=== PATIENT | female | born 1955 | race Hispanic/Latino ===

== ENCOUNTER 2022-06-19 11:38 | Inpatient (IN) | payer MEDICAID, SELFPAY ==
[2022-06-19] VITALS (21 sets, daily range): BP systolic 98–125; BP diastolic 41–78; PULSE 55–68; RESP 10–24; TEMP 36.1–36.2; O2SAT 94–99; BMI 25.8
--- NOTE | ~2022-06-19 | US_ITS ---
US abdomen limited INDICATION: Abdomen pain. Nausea and vomiting. Elevated liver function tests. PROCEDURE: Realtime right upper abdominal ultrasound. COMPARISON: No prior studies for comparison. FINDINGS: The pancreas is normal without focal mass or pancreatic ductal dilation. Liver echotexture is increased and heterogeneous. There is a nodular liver surface, compatible with cirrhosis. No flow identified in the portal vein, consistent with thrombosis. There is a 13 mm echogenic foci in the ga llbladder lumen without shadowing. Gallbladder wall is mildly thickened. Common duct is normal measur ing 4 mm. Small amount of ascites. IMPRESSION: 1: Cirrhosis of the liver with portal vein thrombosis. 2: Echogenic focus measuring 13 mm in the gallbladder which may represent a gallbladder polyp or slud ge. 3: Gallbladder wall thickening. This could indicate interstitial edema, chronic liver disease or conveyor belt installer rachel cholecystitis. 4: Small amount of ascites. Reviewed, dictated and finalized at location A. IMPRESSION: 1: Cirrhosis of the liver with portal vein thrombosis. 2: Echogenic focus measuring 13 mm in the gallbladder which may represent a gal lbladder polyp or sludge. 3: Gallbladder wall thickening. This could indicate interstitial edema, chronic liver disease or chronic cholecystitis. 4: Small amount of ascites.
--- NOTE | ~2022-06-19 | CT_ITS ---
EXAMINATION: CTA abdomen DATE: 06/19/2022 19:12 INDICATION: Portal vein thrombosis TECHNIQUE: Computed tomography (CT) of the abdomen was performed with 100 cc Omnipaque 300 intravenou s contrast. The dose-length product was 355.03 mGy-cm. Automated exposure control and iterative recon struction technique were employed. COMPARISON: Ultrasound dated 06/19/2022 FINDINGS: There is cirrhosis of the liver. Small amount of ascites. There is dependent atelectasis. T he aorta is normal caliber. The celiac axis, SMA, renal arteries and IGNACIO are widely patent. No eviden ce for aneurysm or dissection. No identifiable flow is seen in the portal vein, consistent with von l vein thrombosis. No free air. Nonobstructive bowel pattern. The spleen, pancreas, adrenal glands an d kidneys are unremarkable. No lymphadenopathy. No free air. Small amount of free fluid in the pelvis . There is grade 2 spondylolisthesis at L5-S1 secondary to bilateral spondylolysis. There is moderate disc narrowing at L5-S1. IMPRESSION: 1. Cirrhosis of the liver with portal vein thrombosis. 2: Small amount of ascites. Reviewed, dictated and finalized at location A.
--- NOTE | ~2022-06-19 | CT_ITS ---
EXAMINATION: CT brain wo con DATE: 06/19/2022 12:49 INDICATION: Dizziness TECHNIQUE: Computed tomography (CT) of the head was performed without intravenous contrast. The dose- length product was 529.67 mGy-cm. Automated exposure control and iterative reconstruction technique w ere employed. COMPARISON: None FINDINGS: Mild generalized atrophy. No acute infarction, hemorrhage, mass or mass effect. There is in tracranial atherosclerosis. Normal garcia-white differentiation. No ventriculomegaly or midline shift. Basilar cisterns are patent. Paranasal sinuses and mastoids are pneumatized. IMPRESSION: 1. No acute intracranial abnormality. 2: Age-related findings. Reviewed, dictated and finalized at location A.
--- NOTE | 2022-06-19 12:29 | ECG_ITS ---
Measurements Intervals [place] Rate: 59 P: -15 [place]: 164 QRS: 34 QRSD: 104 T: -12 QT: 375 QTc: 372 Interpretive Statements SINUS BRADYCARDIA BORDERLINE ST-T WAVE ABNORMALITY- ANT/INF LEADS BASELINE ARTIFACT- I, II, III, AVR, AVF, V6 BORDERLINE ECG Electronically Signed On 06-19-2022 16:17:31 CDT by Jani Machado D.O.
[2022-06-19 12:47] LABS: Basophils Absolute Auto 0.1 K/mm3 (0.0-0.1); Basophils Percent Auto 0.9 % (0.2-1.2); Eosinophils Percent Auto 0.1 % (0-4.4); Hematocrit 44.3 % (37.0-47.0); Hemoglobin 14.9 g/dL (12.0-15.0); Immature Granulocyte Absolute 0.01 K/mm3 (0.00-0.031); Immature Granulocyte Percent A 0.1 % (0-0.5); Immature Platelet Fraction Pct 18.8 % (0.9-11.2); Lymphocytes Percent Auto 14.8 % (18.3-44.2); Mean Corpuscular HGB Conc 33.6 g/dl (32-36); Mean Corpuscular Hemoglobin 30.7 pg (26-34); Mean Corpuscular Volume 91.3 fl (80-100); Mean Platelet Volume 13.8 fl (7.4-10.4); Monocytes Absolute Auto 0.6 K/mm3 (0.1-0.6); Monocytes Percent Auto 7.5 % (2.6-8.5); Neutrophils Absolute Auto 6.2 K/mm3 (1.3-6.7); Neutrophils Percent Auto 76.6 % (45.5-73.1); Platelet Count Result 110 k/mm3 (150-375); Red Blood Count 4.85 M/mm3 (4.2-5.4); Red Cell Distribution Width 13.5 % (11.5-14.5); White Blood Count 8.1 K/mm3 (4.5-10.0)
[2022-06-19] MEDS: SODIUM CHLORIDE 0.9% IV 1,000 ML 999 ML IV CONT (13:17)
[2022-06-19] MEDS: ONDANSETRON INJ 4 MG/2 ML VIAL IV PUSH (13:17)
[2022-06-19] MEDS: MECLIZINE HCL 25 MG TABLET PO (13:17)
--- NOTE | 2022-06-19 13:53 | ED.GENADULT ---
HPI - General Adult General Chief complaint: Nausea/Vomiting/Diarrhea <LEEROY Petty Last Filed: 06/19/22 18:33> Stated complaint: N/V and headache x 1 day <LEEROY Petty Last Filed: 06/19/22 18:33> Time Seen by Provider: 06/19/22 11:53 <LEEROY Petty Last Filed: 06/19/22 18:33> Source: patient and family <LEEROY Petty Last Filed: 06/19/22 18:33> Mode of arrival: ambulatory <LEEROY Petty Last Filed: 06/19/22 18:33> Limitations: language barrier <LEEROY Petty Last Filed: 06/19/22 18:33> History of Present Illness HPI narrative: Patient is a 58-year-old female who presents to the ED with report of dizziness. Patient is primarily speaking. Daughter describes review assistant at bedside assisted in providing information. Patient reports she just flew here from [place] a few days ago. Today, she reports having dizziness, described as a the room is spinning. She states she has had dizziness like this in the past and is prescribed a medication in [place] named Cinarizina. Her dizziness has never been this severe however. She also reports having a headache, occasional double vision, and nausea and vomiting due to the dizziness. Denies any abdominal pain, chest pain, difficulty breathing, cough, cold symptoms, fever, chills, ear pain, tinnitus, focal weakness. <LEEROY Petty Last Filed: 06/19/22 18:33> Related Data Allergies/adverse reactions: Allergies Allergy/AdvReac Type Severity Reaction Status Date / Time Penicillins Allergy Unknown Verified 06/19/22 16:17 <LEEROY Petty Last Filed: 06/19/22 18:33> Review of Systems Review of Systems: CONSTITUTIONAL: Denies fever, chills, or sweats. EYES: Reports double vision. ENT: Denies rhinorrhea, congestion, tinnitus, otalgia. CARDIOVASCULAR: Denies chest pain. RESPIRATORY: Denies cough or dyspnea. GASTROINTESTINAL: Reports nausea, vomiting. Denies abdominal pain. NEUROLOGIC: Reports dizziness, headache. Denies numbness, tingling, or focal weakness. <Mica Goodman PA-C - Last Filed: 06/19/22 18:33> All systems reviewed & are unremarkable except as noted in HPI and below <Mica Goodman PA-C - Last Filed: 06/19/22 18:33> PMFSH Past Medical History Medical History: Medical History Diabetes mellitus Hypertension Vertigo <Mica Goodman PA-C - Last Filed: 06/19/22 18:33> Surgical History Surgical History: Surgical History (Updated 06/19/22 @ 13:54 by Mica Goodman PA-C) No pertinent past surgical history <Mica Goodman PA-C - Last Filed: 06/19/22 18:33> Social History Social History: Social History (Updated 06/19/22 @ 13:54 by Mica Goodman PA-C) Smoking status: Never smoker <Mica Goodman PA-C - Last Filed: 06/19/22 18:33> Exam Narrative: GENERAL: Well appearing, well-nourished, non-toxic, in no acute distress. HEAD: Normocephalic, atraumatic. EYES: PERRL/EOMI, conjunctivae clear bilaterally. No nystagmus. Pterygium noted to right eye. EARS: Diffuse cerumen, unable to visualize TMs bilaterally. NECK: Supple. No adenopathy, no masses. RESPIRATORY: Airway patent, respirations nonlabored. Clear to auscultation bilaterally, no rales, rhonchi, wheezing. CARDIOVASCULAR: Regular rate and rhythm without murmurs, rubs, or gallops. Peripheral pulses 2+ and equal bilaterally. ABDOMINAL: Soft, no appreciable tenderness to palpation. Nondistended, no hepatosplenomegaly. Normoactive BS. MUSCULOSKELETAL: Moves all extremities. Strength/ROM intact without gross deformities. SKIN: Warm, dry, normal color. No rashes. NEURO: A&O X3. Speech clear. Difficulty following some commands due to language barrier. No focal deficits. CN II-XII intact. Sensation grossly intact. No ataxic movements. Strength 5/5 in upper and lower extremities bilaterally. [id number] intact bilaterally. No prona
[2022-06-19 14:07] LABS: Appearance Urine Slightly Cloudy (Clear); Bilirubin Urine Negative (Negative); Glucose Urine UA Negative (Negative); Ketones Urine Trace mg/dL (Negative); Leukocyte Esterase Ur 1+ LEU/UL (Negative); Nitrate Urine Positive (Negative); Protein Urine Negative (Negative)
[2022-06-19 14:11] LABS: Bacteria Urine Trace /hpf; Mucus Urine Rare /lpf; RBC Urine 0-2 /hpf (0-2); Squamous Epithelial Cell Urine Rare /hpf (Few)
[2022-06-19 14:20] LABS: Add Urine Microscopic? YES; Blood Urine Trace-Intact (Negative); Color Urine Dark Yellow (Yellow)
[2022-06-19 14:33] LABS: Troponin I < 0.012 ng/mL (0.000-0.034)
[2022-06-19 14:52] LABS: SARS-CoV-2 RNA PCR Negative
[2022-06-19 17:14] LABS: Alanine Aminotransferase 53 U/L (6-35); Albumin Level 3.9 g/dL (3.5-5.1); Alkaline Phosphatase 175 U/L (38-126); Anion Gap 13 mmol/L (8-16); Aspartate Amino Transferase 101 U/L (14-36); Bilirubin,Total 1.8 mg/dL (0.2-1.3); Blood Urea Nitrogen 11 mg/dL (7-17); Calcium 8.8 mg/dL (8.4-10.2); Carbon Dioxide 27 mmol/L (22-30); Chloride 100 mmol/L (98-107); Estimated Glomerular Filt Rate > 60; Glucose 122 mg/dL (65-110); Lipase 61 U/L (23-300); Potassium 2.5 mmol/L (3.4-5.0); Sodium 140 mmol/L (137-145)
[2022-06-19 17:23] LABS: Magnesium 1.9 mg/dL (1.6-2.3)
[2022-06-19] MEDS: SODIUM CHLORIDE 0.9% IV 1,000 ML 30 ML IV CONT (17:33)
[2022-06-19] MEDS: POTASSIUM CHLORIDE INJ 40 MEQ in SODIUM CHLORIDE 0.9% IV 500 ML 130 MEQ IVPB (17:33)
--- NOTE | 2022-06-19 17:33 | PC.NURSE ---
Per verbal order readback by ERP start IVFs at 30ml/hr concurrent with KCL.
[2022-06-19 19:54] LABS: Hepatitis B Surface Antigen Negative (Negative)
[2022-06-19 20:00] LABS: HAV RESULT Negative (Negative); Hepatitis B Core IgM Result Negative (Negative)
--- NOTE | 2022-06-19 20:02 | PM.IMHP ---
H&P: HPI History of Present Illness Date/Time: 06/19/22 20:02 Chief Complaint: dizziness Narrative: This is a 66-year-old female with past medical history significant for hepatic cirrhosis, vertigo, hypertension, recent travel by airplane from [place]. patient presents to the emergency room due to vertigo for the last 3 days or so, DENIES ANY HEADACHES, VISION CHANGES, FOCAL SENSORIMOTOR DEFICIT, NO NAUSEA, NO VOMITING, HAS SENSATION OF ROOM SPINNING AROUND HER WITH MOVEMENTS OF THE HEAD, DENIES ANY FEVERS, RIGORS, CHILLS, ABDOMINAL PAIN, DIARRHEA, SYNCOPE OR NEAR SYNCOPE. PRELIMINARY WORKUP ABOVE SIGNIFICANT FOR URINE WAS POSITIVE FOR NITRITE AND HAD 10-15 WBC'S IS PRESENT A CT OF ABDOMEN AND PELVIS WAS SIGNIFICANT FOR Cirrhosis of the liver with portal vein thrombosis, small amount of ascites. a CT of the head showed no acute intracranial abnormality. patient is being admitted for further evaluation management and treatment. Review of Systems Review of Systems: Vertigo Constitutional: Constitutional: Denies chills, Denies fatigue, Denies fever(s), Denies malaise, Denies night sweats, Denies poor appetite and Denies weakness Eyes: Eyes: Denies change in vision ENT: Denies dysphagia, Reports vertigo, Denies nasal congestion, Denies nasal discharge, Denies nasal obstruction, Denies nasal trauma, Denies neck pain, Denies odynophagia, Denies tinnitus and Denies sore throat Cardiovascular: Cardiovascular: Denies chest pain, Denies syncope, Denies pedal edema, Denies edema, Denies irregular heart rhythm, Denies claudication, Denies lightheadedness, Denies radiating jaw, neck or arm pain, Denies palpitations, Denies dyspnea on exertion and Denies paroxysmal nocturnal dyspnea Respiratory: Respiratory: Denies chest congestion, Denies excessive phlegm production, Denies pain on inspiration and Denies dyspnea Gastrointestinal: Gastrointestinal: Reports abdominal pain, Denies melena, Denies bloating, Denies coffee ground emesis, Denies dyspepsia, Denies heartburn, Denies diarrhea, Denies nausea and Denies vomiting Genitourinary: Genitourinary: Denies dysuria Musculoskeletal: Musculoskeletal: Denies myalgias, Denies arthralgias, Denies joint swelling, Denies limited range of motion, Denies muscle weakness, Denies neck pain and Denies numbness Integumentary/Breasts: Skin/Breast: Denies rash Neurologic: Reports vertigo, Denies syncope, Denies focal weakness, Denies loss of vision and Denies Sensory deficit (Neuro) Psychiatric: Psychiatric: Reports no additional psychiatric complaints and Reports as per HPI Endocrine: Endocrine: Reports no additional endocrine complaints and Reports as per HPI Hematologic/Lymphatic: Hematologic/Lymphatic: Reports no additional hematologic/lymphatic complaints and Reports as per HPI Allergic/Immunologic: Allergic/Immunologic: Reports no additional allergic/immunologic complaints and Reports as per HPI [facility] Past Medical History Medical History Diabetes mellitus Hypertension Vertigo Surgical History Surgical History (Updated 06/19/22 @ 13:54 by Mica Goodman PA-C) No pertinent past surgical history Family History Family History (Updated 06/19/22 @ 21:21 by Mehnaz Langley RN) Mother Asthma Social History Social History (Updated 06/19/22 @ 13:54 by Mica Goodman PA-C) Smoking status: Never smoker Alcohol intake: never Substance use: never Spiritual care concerns: No Meds Home Medications and Allergies Home Medications Medication Instructions Recorded Confirmed Type chlorthalidone 50 mg tablet 50 mg PO DAILY 06/19/22 06/19/22 History glyburide micronized 3 mg tablet 3 mg PO BID 06/19/22 06/19/22 History (Glynase) metoprolol succinate 50 mg 50 mg PO BID 06/19/22 06/19/22 History tablet,extended release 24 hr Allergies Allergy/AdvReac Type Severity Reaction Status Date / Time Penicillins Aller
[2022-06-19 20:11] LABS: Hepatitis C Virus Antibody Negative (Negative)
[2022-06-19 20:29] LABS: INR 1.3; Partial Thromboplastin Time 31.3 SECONDS (22.3-36.8); Prothrombin Time 15.9 Seconds (11.1-14.7)
--- NOTE | 2022-06-19 21:19 | ADMGEN ---
This patient, Eboni Bolden, was admitted to 2 Medical Room 242-01. Patient/family oriented to hospital policies and general routines including ID bracelet, bed and alarms, visiting hours, pain management, procedures, bathroom and other care routines, personal items, smoking policy, room service/diet, and visiting hours. Information on how to activate the Rapid Response Team has been discussed. Patient/Family are encouraged to report perceived risks to care and to ask questions if they do not understand what they are told or what they should do.
[2022-06-20 03:37] VITALS: BP 101/47; PULSE 61; RESP 18; TEMP 36.2; O2SAT 98
[2022-06-20 06:57] LABS: Hematocrit 44.7 % (37.0-47.0); Hemoglobin 14.7 g/dL (12.0-15.0); Immature Platelet Fraction Pct 15.8 % (0.9-11.2); Mean Corpuscular HGB Conc 32.9 g/dl (32-36); Mean Corpuscular Hemoglobin 30.8 pg (26-34); Mean Corpuscular Volume 93.7 fl (80-100); Mean Platelet Volume 12.8 fl (7.4-10.4); Platelet Count Result 92 k/mm3 (150-375); Red Blood Count 4.77 M/mm3 (4.2-5.4); Red Cell Distribution Width 13.4 % (11.5-14.5); White Blood Count 6.5 K/mm3 (4.5-10.0)
[2022-06-20 07:20] LABS: Alanine Aminotransferase 49 U/L (6-35); Albumin Level 3.4 g/dL (3.5-5.1); Alkaline Phosphatase 144 U/L (38-126); Anion Gap 8 mmol/L (8-16); Aspartate Amino Transferase 99 U/L (14-36); Bilirubin,Total 1.7 mg/dL (0.2-1.3); Blood Urea Nitrogen 10 mg/dL (7-17); Carbon Dioxide 32 mmol/L (22-30); Chloride 101 mmol/L (98-107); Estimated CRCL calculation 54 ml/min; Estimated Glomerular Filt Rate > 60; Glucose 85 mg/dL (65-110); Potassium 2.7 mmol/L (3.4-5.0); Sodium 141 mmol/L (137-145)
[2022-06-20 07:46] LABS: Glucose Point of Care 94 mg/dl (65-105)
[2022-06-20] MEDS: POTASSIUM CHLORIDE INJ 40 MEQ in SODIUM CHLORIDE 0.9% IV 500 ML 130 MEQ IVPB (08:32)
[2022-06-20 08:34] VITALS: PULSE 67
[2022-06-20] MEDS: METOPROLOL SUCCINATE EXT REL 50 MG TABCR PO (08:34)
[2022-06-20] MEDS: POTASSIUM CHLORIDE 20 MEQ PACKET (FOR LIQUID) 40 MEQ PO (08:35)
[2022-06-20] MEDS: hydroCHLOROthiazide 25 MG TABLET PO (08:35)
[2022-06-20 08:47] VITALS: BP 115/52
[2022-06-20 11:34] LABS: Glucose Point of Care 154 mg/dl (65-105)
--- NOTE | 2022-06-20 11:54 | PM.IMPN ---
Progress Note: A&P Assessment and Plan (1) Hypokalemia: Code(s): E87.6 - Hypokalemia Status: Acute (2) Elevated LFTs: Code(s): R79.89 - Other specified abnormal findings of blood chemistry Status: Acute (3) Urinary tract infection: Qualifiers: Hematuria presence: without hematuria Urinary tract infection type: acute cystitis Qualified Code(s): N30.00 - Acute cystitis without hematuria Code(s): N39.0 - Urinary tract infection, site not specified Status: Acute (4) Hypertension: Code(s): I10 - Essential (primary) hypertension Status: Acute (5) Vertigo: Code(s): R42 - Dizziness and giddiness Status: Acute (6) Diabetes mellitus: Code(s): E11.9 - Type 2 diabetes mellitus without complications Status: Acute Plan Nausea vomiting headache dizziness improving History of vertigo Mild thrombocytopenia no baseline available. Due to chronic liver disease. Urinary tract infection continue ceftriaxone follow urine culture Portal vein thrombosis related to cirrhosis of liver. H&H is stable no history of bleeding will cover with heparin GTT due to unknown bleeding history and/or varices status. Will check AFP. Hepatitis panel is negative. No history of alcohol use. Venous thrombosis panel will be ordered. Will consult GI for further recommendations. Discussed with GI. Will plan for EGD for variceal status. Due to bleeding risks will start with heparin GTT rather than longer acting anticoagulation. Discussed with Radiology and noted complete occlusion of portal vein. Unable to determine whether acute or chronic but does not seem she is much symptomatic with this. Hypokalemia severe replace as needed. Magnesium is normal. DVT prophylaxis heparin GTT Code status full code Subjective Date/time seen: 06/20/22 11:54 Interval history: Patient presented with nausea vomiting dizziness. Petroleum Engineering Professor is her grandson who was at bedside. She came from [place] few days ago. Denies any abdominal pain. Not having any diarrhea. Did have nausea and vomiting please out. No fever chills shortness of breath chest pain. She was noted to have severe hypo kalemia which is getting was placed. Routine lab work showed findings of cirrhosis with portal vein thrombosis. There was also possible gallbladder polyp versus sludge versus chronic cholecystitis. She has underlying diabetes. No history of alcohol use. She has been diagnosed with some liver problem in [place] Review of Systems Review of Systems: All systems reviewed & are unremarkable except as noted in HPI and below Exam Narrative: GENERAL: The patient is well developed, not in acute distress HEENT: Nonicteric sclerae, PERRLA, EOMI. Oropharynx clear. Moist mucous membranes. Conjunctivae appear well perfused. CHEST: Chest wall is nontender. HEART: Regular rate and rhythm without murmur, rubs, or gallops LUNGS: Clear to auscultation bilaterally. no respiratory distress ABDOMEN: Soft, positive bowel sounds, non-tender, no organomegaly. SKIN: No rash, no excessive bruising, petechiae, or purpura. NEUROLOGIC: Cranial nerves II-XII intact, alert and oriented x 3, no gross motor deficits EXTREMITIES: no edema, cyanosis or clubbing Objective Data Vital Signs Vital Signs: Vital Signs - 24 hr 06/19/22 12:36 06/19/22 17:03 06/19/22 17:28 Temperature Pulse Rate 62 62 57 L Respiratory Rate 12 14 10 L Blood Pressure 115/56 L 104/43 L Pulse Oximetry 96 95 95 Oxygen Delivery 06/19/22 17:30 06/19/22 17:31 06/19/22 17:45 Temperature Pulse Rate 63 60 62 Respiratory Rate 13 13 14 Blood Pressure 112/52 L Pulse Oximetry 96 95 94 Oxygen Delivery 06/19/22 18:29 06/19/22 18:30 06/19/22 18:45 Temperature Pulse Rate 59 L 59 L 57 L Respiratory Rate 24 H 15 17 Blood Pressure Pulse Oximetry 94 96 97 Oxygen Delivery 06/19/22 19:17 06/19/22 19:26 06/19/22 19:30 Temperature
[2022-06-20 14:20] VITALS: BP 109/67; PULSE 63; RESP 18; TEMP 36.8; O2SAT 97
[2022-06-20] MEDS: HEPARIN SOD/D5W 100 UNITS/ML 25,000 UNITS/250 ML BAG 9 UNITS IV CONT (14:52)
[2022-06-20 16:37] LABS: Glucose Point of Care 142 mg/dl (65-105)
[2022-06-20 18:33] LABS: Basophils Absolute Auto 0.1 K/mm3 (0.0-0.1); Basophils Percent Auto 1.1 % (0.2-1.2); Eosinophils Absolute Auto 0.1 K/mm3 (0-0.3); Eosinophils Percent Auto 1.7 % (0-4.4); Hematocrit 41.6 % (37.0-47.0); Hemoglobin 13.5 g/dL (12.0-15.0); Immature Granulocyte Absolute 0.01 K/mm3 (0.00-0.031); Immature Granulocyte Percent A 0.2 % (0-0.5); Immature Platelet Fraction Pct 16.7 % (0.9-11.2); Lymphocytes Absolute Auto 1.79 K/mm3 (0.9-3.2); Lymphocytes Percent Auto 27.7 % (18.3-44.2); Mean Corpuscular HGB Conc 32.5 g/dl (32-36); Mean Corpuscular Hemoglobin 30.4 pg (26-34); Mean Corpuscular Volume 93.7 fl (80-100); Mean Platelet Volume 13.2 fl (7.4-10.4); Monocytes Absolute Auto 0.4 K/mm3 (0.1-0.6); Monocytes Percent Auto 6.8 % (2.6-8.5); Neutrophils Percent Auto 62.5 % (45.5-73.1); Platelet Count Result 102 k/mm3 (150-375); Red Blood Count 4.44 M/mm3 (4.2-5.4); Red Cell Distribution Width 13.4 % (11.5-14.5); White Blood Count 6.5 K/mm3 (4.5-10.0)
[2022-06-20 18:37] LABS: Potassium 3.3 mmol/L (3.4-5.0)
[2022-06-20 18:47] LABS: INR 1.3; Prothrombin Time 15.9 Seconds (11.1-14.7)
[2022-06-20 18:48] LABS: Partial Thromboplastin Time 77.1 SECONDS (22.3-36.8)
[2022-06-20 19:38] VITALS: BP 109/50; PULSE 60; RESP 16; TEMP 36.6; O2SAT 95
[2022-06-20 21:38] LABS: Glucose Point of Care 220 mg/dl (65-105)
[2022-06-21 01:48] LABS: Partial Thromboplastin Time 157.8 SECONDS (22.3-36.8)
[2022-06-21 06:37] VITALS: BP 111/50; PULSE 62; RESP 16; TEMP 36.8; O2SAT 97
[2022-06-21 07:40] LABS: Glucose Point of Care 120 mg/dl (65-105)
[2022-06-21 07:57] LABS: Basophils Absolute Auto 0.1 K/mm3 (0.0-0.1); Basophils Percent Auto 1.2 % (0.2-1.2); Eosinophils Absolute Auto 0.2 K/mm3 (0-0.3); Eosinophils Percent Auto 2.6 % (0-4.4); Hematocrit 43.5 % (37.0-47.0); Hemoglobin 14.5 g/dL (12.0-15.0); Immature Granulocyte Absolute 0.01 K/mm3 (0.00-0.031); Immature Granulocyte Percent A 0.2 % (0-0.5); Immature Platelet Fraction Pct 16.2 % (0.9-11.2); Lymphocytes Absolute Auto 2.06 K/mm3 (0.9-3.2); Lymphocytes Percent Auto 35.2 % (18.3-44.2); Mean Corpuscular HGB Conc 33.3 g/dl (32-36); Mean Corpuscular Hemoglobin 31.3 pg (26-34); Mean Platelet Volume 13.5 fl (7.4-10.4); Monocytes Absolute Auto 0.5 K/mm3 (0.1-0.6); Monocytes Percent Auto 7.7 % (2.6-8.5); Neutrophils Absolute Auto 3.1 K/mm3 (1.3-6.7); Neutrophils Percent Auto 53.1 % (45.5-73.1); Platelet Count Result 84 k/mm3 (150-375); Red Blood Count 4.63 M/mm3 (4.2-5.4); Red Cell Distribution Width 13.2 % (11.5-14.5); White Blood Count 5.9 K/mm3 (4.5-10.0)
[2022-06-21 07:58] LABS: Alanine Aminotransferase 54 U/L (6-35); Albumin Level 3.4 g/dL (3.5-5.1); Alkaline Phosphatase 183 U/L (38-126); Anion Gap 6 mmol/L (8-16); Aspartate Amino Transferase 111 U/L (14-36); Bilirubin,Total 1.7 mg/dL (0.2-1.3); Blood Urea Nitrogen 10 mg/dL (7-17); Calcium 8.9 mg/dL (8.4-10.2); Carbon Dioxide 32 mmol/L (22-30); Chloride 99 mmol/L (98-107); Estimated CRCL calculation 54 ml/min; Estimated Glomerular Filt Rate > 60; Glucose 118 mg/dL (65-110); Magnesium 1.8 mg/dL (1.6-2.3); Sodium 137 mmol/L (137-145)
[2022-06-21 08:08] LABS: Partial Thromboplastin Time 106.8 SECONDS (22.3-36.8)
[2022-06-21 08:23] VITALS: PULSE 56
[2022-06-21] MEDS: METOPROLOL SUCCINATE EXT REL 50 MG TABCR PO (08:23)
[2022-06-21] MEDS: POTASSIUM CHLORIDE 20 MEQ TABLET 40 MEQ PO (10:30)
--- NOTE | 2022-06-21 11:42 | WPDGICN ---
Assessment and Plan Assessment and plan (1) Cirrhosis: Code(s): K74.60 - Unspecified cirrhosis of liver Status: Acute Assessment and Plan: new diagnosis of cirrhosis with PVT but she is compensated otherwise ? etiology [place] (risk factors) with negative hepatitis and no history of etoh intake will complete work up for other chronic liver conditions (2) Portal vein thrombosis: Code(s): I81 - Portal vein thrombosis Status: Acute Assessment and Plan: on iv heparin normal h/h will do EGD on Thursday to assess if varices, if negative or small then should be ok to transition to oral AC for 6 months also will refer to hepatology at [facility] or [facility] (3) Dizziness: Code(s): R42 - Dizziness and giddiness Status: Acute (4) Elevated LFTs: Code(s): R79.89 - Other specified abnormal findings of blood chemistry Status: Acute Assessment and Plan: from cirrhosis (5) Hypertension: Code(s): I10 - Essential (primary) hypertension Status: Acute (6) Diabetes mellitus: Code(s): E11.9 - Type 2 diabetes mellitus without complications Status: Acute GI Consult Note Consult date/time: 06/21/22 11:42 Reason for consult: new diagnosis of cirrhosis and PVT HPI: Eboni Bolden is a 66 year old female originally from [place] who just arrived to the country few days ago for the first time (patient just got her green card and interviewed was done in [place]). She has h/o HTN and DM, recently in [place] she had liver imaging and was told for the first time about liver disease. On her way here she was lightheaded, vertigo and had headaches. ER evaluation inr 1.3, platelets 80, bili 1.7, transaminases 50-100, albumin 3.[address] scan showed Cirrhosis of the liver with portal vein thrombosis, small amount of ascites. CT of the head showed no acute intracranial abnormality. Denies overt gib, hb normal at 14. She never had egd or colonoscopy. Started on iv heparin given findings. Denies nausea or abdominal pain, she is comfortable. Review of Systems Review of Systems: Vertigo Constitutional: Constitutional: Denies chills, Denies fatigue, Denies fever(s), Denies malaise, Denies night sweats, Denies poor appetite and Denies weakness Eyes: Eyes: Denies change in vision ENT: Denies dysphagia, Reports vertigo, Denies nasal congestion, Denies nasal discharge, Denies nasal obstruction, Denies nasal trauma, Denies neck pain, Denies odynophagia, Denies tinnitus and Denies sore throat Cardiovascular: Cardiovascular: Denies chest pain, Denies syncope, Denies pedal edema, Denies edema, Denies irregular heart rhythm, Denies claudication, Denies lightheadedness, Denies radiating jaw, neck or arm pain, Denies palpitations, Denies dyspnea on exertion and Denies paroxysmal nocturnal dyspnea Respiratory: Respiratory: Denies chest congestion, Denies excessive phlegm production, Denies pain on inspiration and Denies dyspnea Gastrointestinal: Gastrointestinal: Reports abdominal pain, Denies melena, Denies bloating, Denies coffee ground emesis, Denies dyspepsia, Denies heartburn, Denies diarrhea, Denies nausea and Denies vomiting Genitourinary: Genitourinary: Denies dysuria Musculoskeletal: Musculoskeletal: Denies myalgias, Denies arthralgias, Denies joint swelling, Denies limited range of motion, Denies muscle weakness, Denies neck pain and Denies numbness Integumentary/Breasts: Skin/Breast: Denies rash Neurologic: Reports vertigo, Denies syncope, Denies focal weakness, Denies loss of vision and Denies Sensory deficit (Neuro) Psychiatric: Psychiatric: Reports no additional psychiatric complaints and Reports as per HPI Endocrine: Endocrine: Reports no additional endocrine complaints and Reports as per HPI Hematologic/Lymphatic: Hematologic/Lymphatic: Reports no additional hematologic/lymphatic complaints and Reports as per HPI Allergic/Immunologic: Allergic/Immunologic: Reports no
[2022-06-21 11:48] LABS: Glucose Point of Care 194 mg/dl (65-105)
--- NOTE | 2022-06-21 14:20 | PM.IMPN ---
Progress Note: A&P Assessment and Plan (1) Cirrhosis: Code(s): K74.60 - Unspecified cirrhosis of liver Status: Acute (2) Portal vein thrombosis: Code(s): I81 - Portal vein thrombosis Status: Acute (3) Dizziness: Code(s): R42 - Dizziness and giddiness Status: Acute (4) Hypokalemia: Code(s): E87.6 - Hypokalemia Status: Acute (5) Elevated LFTs: Code(s): R79.89 - Other specified abnormal findings of blood chemistry Status: Acute (6) Urinary tract infection: Qualifiers: Hematuria presence: without hematuria Urinary tract infection type: acute cystitis Qualified Code(s): N30.00 - Acute cystitis without hematuria Code(s): N39.0 - Urinary tract infection, site not specified Status: Acute (7) Hypertension: Code(s): I10 - Essential (primary) hypertension Status: Acute (8) Vertigo: Code(s): R42 - Dizziness and giddiness Status: Acute (9) Diabetes mellitus: Code(s): E11.9 - Type 2 diabetes mellitus without complications Status: Acute Plan Nausea vomiting headache dizziness improving History of vertigo Mild thrombocytopenia no baseline available.? Due to chronic liver disease. Urinary tract infection continue ceftriaxone follow urine culture Portal vein thrombosis related to cirrhosis of liver.? H&H is stable no history of bleeding will cover with heparin GTT due to unknown bleeding history and/or varices status.? Will check AFP.? Hepatitis panel is negative.? No history of alcohol use.? Venous thrombosis panel order. Consult. Discussed diarrhea EGD variceal status planned in Thursday.? Due to bleeding risks will start with heparin GTT rather than longer acting anticoagulation.? Discussed with Radiology and noted complete occlusion of portal vein.? Unable to determine whether acute or chronic but does not seem she is much symptomatic with this. Continue heparin drip she is tolerating #Hypokalemia severe replace as needed.? Magnesium is normal.? #DVT prophylaxis heparin GTT #Code status full code Subjective Date/time seen: 06/21/22 14:20 Interval history: Patient presented with nausea vomiting dizziness. Brigadier is her grandson who was at bedside. She came from [place] few days ago. Denies any abdominal pain. Not having any diarrhea. Did have nausea and vomiting please out. No fever chills shortness of breath chest pain. She was noted to have severe hypo kalemia which is getting was placed. Routine lab work showed findings of cirrhosis with portal vein thrombosis. There was also possible gallbladder polyp versus sludge versus chronic cholecystitis. She has underlying diabetes. No history of alcohol use. She has been diagnosed with some liver problem in [place] 06/21/2022 feeling better. Denies any Review of Systems Review of Systems: All systems reviewed & are unremarkable except as noted in HPI and below Exam Narrative: GENERAL: The patient is well developed, not in acute distress HEENT: Nonicteric sclerae, PERRLA, EOMI. Oropharynx clear. Moist mucous membranes. Conjunctivae appear well perfused. CHEST: Chest wall is nontender. HEART: Regular rate and rhythm without murmur, rubs, or gallops LUNGS: Clear to auscultation bilaterally. no respiratory distress ABDOMEN: Soft, positive bowel sounds, non-tender, no organomegaly. SKIN: No rash, no excessive bruising, petechiae, or purpura. NEUROLOGIC: Cranial nerves II-XII intact, alert and oriented x 3, no gross motor deficits EXTREMITIES: no edema, cyanosis or clubbing Objective Data Vital Signs Vital Signs: Vital Signs - 24 hr 06/20/22 19:38 06/20/22 20:00 06/21/22 06:37 Temperature 97.8 F 98.3 F Pulse Rate 60 62 Respiratory Rate 16 16 Blood Pressure 109/50 L 111/50 L Pulse Oximetry 95 97 Oxygen Delivery Room Air 06/21/22 08:23 06/21/22 08:00 Temperature Pulse Rate 56 L Respiratory Rate Blood Pressure Pulse Oxi
[2022-06-21 14:30] VITALS: BP 129/54; PULSE 57; RESP 18; TEMP 36.4; O2SAT 96
[2022-06-21 15:18] LABS: Partial Thromboplastin Time 71.7 SECONDS (22.3-36.8)
[2022-06-21] MEDS: HEPARIN SOD/D5W 100 UNITS/ML 25,000 UNITS/250 ML BAG 6 UNITS IV CONT (15:43)
[2022-06-21 16:49] LABS: Glucose Point of Care 155 mg/dl (65-105)
[2022-06-21 19:48] VITALS: BP 110/52; PULSE 51; RESP 16; TEMP 36.7; O2SAT 96
[2022-06-21 20:37] LABS: Partial Thromboplastin Time 79.7 SECONDS (22.3-36.8)
[2022-06-21] MEDS: ACETAMINOPHEN 325 MG TABLET 650 MG PO (21:48)
[2022-06-22 00:14] LABS: Glucose Point of Care 137 mg/dl (65-105)
[2022-06-22 05:35] LABS: Basophils Absolute Auto 0.1 K/mm3 (0.0-0.1); Basophils Percent Auto 1.3 % (0.2-1.2); Eosinophils Absolute Auto 0.2 K/mm3 (0-0.3); Eosinophils Percent Auto 3.6 % (0-4.4); Hematocrit 40.4 % (37.0-47.0); Hemoglobin 13.4 g/dL (12.0-15.0); Immature Granulocyte Absolute 0.01 K/mm3 (0.00-0.031); Immature Granulocyte Percent A 0.2 % (0-0.5); Immature Platelet Fraction Pct 17.6 % (0.9-11.2); Lymphocytes Absolute Auto 1.67 K/mm3 (0.9-3.2); Lymphocytes Percent Auto 37.5 % (18.3-44.2); Mean Corpuscular HGB Conc 33.2 g/dl (32-36); Mean Corpuscular Hemoglobin 31.2 pg (26-34); Mean Platelet Volume 13.3 fl (7.4-10.4); Monocytes Absolute Auto 0.4 K/mm3 (0.1-0.6); Monocytes Percent Auto 9.2 % (2.6-8.5); Neutrophils Absolute Auto 2.1 K/mm3 (1.3-6.7); Neutrophils Percent Auto 48.2 % (45.5-73.1); Platelet Count Result 74 k/mm3 (150-375); Red Cell Distribution Width 13.2 % (11.5-14.5); White Blood Count 4.5 K/mm3 (4.5-10.0)
[2022-06-22 05:48] LABS: Alanine Aminotransferase 48 U/L (6-35); Albumin Level 2.8 g/dL (3.5-5.1); Alkaline Phosphatase 143 U/L (38-126); Anion Gap 4 mmol/L (8-16); Aspartate Amino Transferase 95 U/L (14-36); Bilirubin,Total 1.1 mg/dL (0.2-1.3); Blood Urea Nitrogen 10 mg/dL (7-17); Calcium 8.7 mg/dL (8.4-10.2); Carbon Dioxide 32 mmol/L (22-30); Chloride 101 mmol/L (98-107); Estimated CRCL calculation 54 ml/min; Estimated Glomerular Filt Rate > 60; Glucose 96 mg/dL (65-110); Sodium 137 mmol/L (137-145)
[2022-06-22 05:52] LABS: Partial Thromboplastin Time 108.3 SECONDS (22.3-36.8)
[2022-06-22 06:51] VITALS: BP 102/58; PULSE 56; RESP 18; TEMP 36.4; O2SAT 94
[2022-06-22 06:55] LABS: Iron 173 ug/dL (37-170)
[2022-06-22 07:05] LABS: Percent Iron Saturation 64 % (20-50)
[2022-06-22 07:27] LABS: Glucose Point of Care 103 mg/dl (65-105)
[2022-06-22 09:18] VITALS: PULSE 60
[2022-06-22] MEDS: METOPROLOL SUCCINATE EXT REL 50 MG TABCR PO (09:18)
[2022-06-22] MEDS: POTASSIUM CHLORIDE 20 MEQ TABLET 40 MEQ PO (09:21)
[2022-06-22 11:25] LABS: Glucose Point of Care 183 mg/dl (65-105)
--- NOTE | 2022-06-22 11:27 | WPDGIPROGNO ---
Progress Note: A&P Assessment and Plan (1) Cirrhosis: Code(s): K74.60 - Unspecified cirrhosis of liver Status: Acute Assessment and Plan: work up in progress, new diagnosis ? [place] (2) Portal vein thrombosis: Code(s): I81 - Portal vein thrombosis Status: Acute Assessment and Plan: on iv heparin she is now asymptomatic will do EGD to assess varices- if no major findings then should be ok to start oral anticoagulation and then follow-up with hepatology [facility] or [facility] (3) Dizziness: Code(s): R42 - Dizziness and giddiness Status: Acute Assessment and Plan: resolved (4) Elevated LFTs: Code(s): R79.89 - Other specified abnormal findings of blood chemistry Status: Acute Subjective Date/time seen: 06/22/22 11:27 Interval history: she is doing fairly well, no nausea or pain, no more vertigo sensation Review of Systems Review of Systems: All systems reviewed & are unremarkable except as noted in HPI and below Exam Const: General: comfortable and no acute distress HENMT: General nose exam: Normal nares present Eyes: General: appearance normal, both eyes and all related structures Neck: Neck: no JVD Resp: Auscultation: clear to auscultation bilaterally Cardio: Rate: regular rate Rhythm: regular rhythm GI: Inspection: non-distended GI Palp: Yes Soft to palpation Auscultation: normal bowel sounds Skin: General skin exam: normal color Neuro: General: gait normal Speech: normal speech Extrem: General: normal to inspection Psych: Mental Status: mental status grossly normal Objective Data Vital Signs Vital Signs: Vital Signs - 24 hr 06/21/22 14:30 06/21/22 19:48 06/22/22 06:51 Temperature 97.5 F L 98.1 F 97.6 F Pulse Rate 57 L 51 L 56 L Respiratory Rate 18 16 18 Blood Pressure 129/54 L 110/52 L 102/58 L Pulse Oximetry 96 96 94 Oxygen Delivery 06/22/22 09:18 06/22/22 09:19 Temperature Pulse Rate 60 Respiratory Rate Blood Pressure Pulse Oximetry Oxygen Delivery Room Air Intake/Output Intake/Output: Intake & Output 06/19/22 06/20/22 06/21/22 06/22/22 23:59 23:59 23:59 23:59 Intake Total 1570 1580 1350 150 Output Total 0 Balance 1570 1580 1350 150 Meds/Results Medications: Active Medications Generic Name Dose Route Start Last Admin Trade Name Freq PRN Reason Stop Dose Admin Heparin Sodium (Porcine) 4,000 units 06/20/22 13:48 Heparin Sodium 5,000 Units/Ml Vial IV PUSH PRN PRN aPTT less than 55 seconds Heparin Sodium (Porcine) 2,000 units 06/20/22 13:48 Heparin Sodium 5,000 Units/Ml Vial IV PUSH PRN PRN aPTT 55 - 70 seconds Ceftriaxone Sodium/Dextrose 1 gm in 50 mls @ 100 mls/hr 06/20/22 12:00 06/21/22 13:00 Rocephin 1 Gm/D5w 50 Ml IVPB Infused Q24H MAMADOU Infusion Heparin Sodium/Dextrose 25,000 units in 250 mls @ 5 mls/hr 06/20/22 13:50 06/22/22 07:38 Heparin Sodium/D5w 100 Units/Ml IV CONT 500 units/hr .Q24H MAMADOU 5 mls/hr Titration Protocol 500 UNITS/HR Meclizine HCl 25 mg 06/20/22 00:21 Meclizine Hcl 25 Mg Tablet PO BID PRN Vertigo Metoprolol Succinate 50 mg 06/20/22 09:00 06/22/22 09:18 Metoprolol Succinate Ext Rel 50 Mg Tabcr PO 50 mg DAILY MAMADOU Administration Radiology Results: ITS Impressions Head CT 06/19/22 12:56 IMPRESSION: 1. No acute intracranial abnormality. 2: Age-related findings. Abdomen Ultrasound 06/19/22 18:26 IMPRESSION: 1: Cirrhosis of the liver with portal vein thrombosis. 2: Echogenic focus measuring 13 mm in the gallbladder which may represent a gallbladder polyp or sludge. 3: Gallbladder wall thickening. This could indicate interstitial edema, chronic liver disease or chronic cholecystitis. 4: Small amount of ascites. Abdomen CTA 06/19/22 19:16 IMPRESSION: 1. Cirrhosis of the liver with portal vein thrombosis. 2: Smal
--- NOTE | 2022-06-22 12:02 | PM.IMPN ---
Progress Note: A&P Assessment and Plan (1) Cirrhosis: Code(s): K74.60 - Unspecified cirrhosis of liver Status: Acute (2) Portal vein thrombosis: Code(s): I81 - Portal vein thrombosis Status: Acute (3) Dizziness: Code(s): R42 - Dizziness and giddiness Status: Acute (4) Hypokalemia: Code(s): E87.6 - Hypokalemia Status: Acute (5) Elevated LFTs: Code(s): R79.89 - Other specified abnormal findings of blood chemistry Status: Acute (6) Urinary tract infection: Qualifiers: Hematuria presence: without hematuria Urinary tract infection type: acute cystitis Qualified Code(s): N30.00 - Acute cystitis without hematuria Code(s): N39.0 - Urinary tract infection, site not specified Status: Acute (7) Hypertension: Code(s): I10 - Essential (primary) hypertension Status: Acute (8) Vertigo: Code(s): R42 - Dizziness and giddiness Status: Acute (9) Diabetes mellitus: Code(s): E11.9 - Type 2 diabetes mellitus without complications Status: Acute Plan # Nausea vomiting headache dizziness this has resolved # History of vertigo # Mild thrombocytopenia no baseline available.? Due to chronic liver disease. # Urinary tract infection continue ceftriaxone urine culture with E coli sensitive to ceftriaxone. # Portal vein thrombosis related to cirrhosis of liver.? H&H is stable no history of bleeding will cover with heparin GTT due to unknown bleeding history and/or varices status.? Will check AFP.? Hepatitis panel is negative.? No history of alcohol use.? Venous thrombosis panel order. Consult. EGD to assess variceal status planned in Thursday.? Due to bleeding risks will start with heparin GTT rather than longer acting anticoagulation.? Discussed with Radiology and noted complete occlusion of portal vein.? Unable to determine whether acute or chronic but does not seem she is much symptomatic with this. Continue heparin drip she is tolerating Platelet count slightly low will continue to monitor #Hypokalemia severe replace as needed.? Magnesium is normal.? Replace potassium and recheck and monitor #DVT prophylaxis heparin GTT #Code status full code Subjective Date/time seen: 06/22/22 12:02 Interval history: Patient presented with nausea vomiting dizziness. Punch Press Setter is her grandson who was at bedside. She came from [place] few days ago. Denies any abdominal pain. Not having any diarrhea. Did have nausea and vomiting please out. No fever chills shortness of breath chest pain. She was noted to have severe hypo kalemia which is getting was placed. Routine lab work showed findings of cirrhosis with portal vein thrombosis. There was also possible gallbladder polyp versus sludge versus chronic cholecystitis. She has underlying diabetes. No history of alcohol use. She has been diagnosed with some liver problem in [place] 06/21/2022 feeling better. Denies any complaints. Abdominal pain nausea vomiting 06/22/2022 no overnight events. Denies any complaints. Used a brush machine setter on the phone to communicate. No abdominal pain nausea vomiting. Review of Systems Review of Systems: All systems reviewed & are unremarkable except as noted in HPI and below Exam Narrative: GENERAL: The patient is well developed, not in acute distress HEENT: Nonicteric sclerae, PERRLA, EOMI. Oropharynx clear. Moist mucous membranes. Conjunctivae appear well perfused. CHEST: Chest wall is nontender. HEART: Regular rate and rhythm without murmur, rubs, or gallops LUNGS: Clear to auscultation bilaterally. no respiratory distress ABDOMEN: Soft, positive bowel sounds, non-tender, no organomegaly. SKIN: No rash, no excessive bruising, petechiae, or purpura. NEUROLOGIC: Cranial nerves II-XII intact, alert and oriented x 3, no gross motor deficits EXTREMITIES: no edema, cyanosis or clubbing Objective Data Vital Signs Vital Signs: Vital Signs - 24 hr
[2022-06-22 13:30] VITALS: BP 128/64; PULSE 58; RESP 16; TEMP 36.6; O2SAT 96
[2022-06-22 13:38] LABS: Partial Thromboplastin Time 66.8 SECONDS (22.3-36.8)
[2022-06-22] MEDS: HEPARIN SODIUM 5,000 UNITS/ML VIAL 2000 UNITS IV PUSH (13:48)
[2022-06-22] MEDS: HEPARIN SOD/D5W 100 UNITS/ML 25,000 UNITS/250 ML BAG 6 UNITS IV CONT (13:53)
[2022-06-22 16:17] LABS: Glucose Point of Care 171 mg/dl (65-105)
[2022-06-22 20:00] VITALS: PULSE 58; RESP 16; O2SAT 96
[2022-06-22 20:19] LABS: Partial Thromboplastin Time 127.6 SECONDS (22.3-36.8)
[2022-06-22 22:00] VITALS: BP 135/81; PULSE 60; RESP 16; TEMP 36.4; O2SAT 96
[2022-06-23] VITALS (9 sets, daily range): BP systolic 110–151; BP diastolic 54–83; PULSE 50–60; RESP 14–23; TEMP 35.9–36.7; O2SAT 96–99
[2022-06-23 04:08] LABS: Basophils Absolute Auto 0.1 K/mm3 (0.0-0.1); Basophils Percent Auto 1.6 % (0.2-1.2); Eosinophils Absolute Auto 0.1 K/mm3 (0-0.3); Eosinophils Percent Auto 3.1 % (0-4.4); Hematocrit 38.7 % (37.0-47.0); Hemoglobin 12.7 g/dL (12.0-15.0); Immature Granulocyte Absolute 0.01 K/mm3 (0.00-0.031); Immature Granulocyte Percent A 0.2 % (0-0.5); Immature Platelet Fraction Pct 18.2 % (0.9-11.2); Lymphocytes Absolute Auto 1.56 K/mm3 (0.9-3.2); Lymphocytes Percent Auto 34.9 % (18.3-44.2); Mean Corpuscular HGB Conc 32.8 g/dl (32-36); Mean Corpuscular Volume 94.4 fl (80-100); Monocytes Absolute Auto 0.5 K/mm3 (0.1-0.6); Neutrophils Absolute Auto 2.2 K/mm3 (1.3-6.7); Neutrophils Percent Auto 49.2 % (45.5-73.1); Platelet Count Result 72 k/mm3 (150-375); Red Cell Distribution Width 13.3 % (11.5-14.5); White Blood Count 4.5 K/mm3 (4.5-10.0)
[2022-06-23 04:20] LABS: Partial Thromboplastin Time 62.4 SECONDS (22.3-36.8)
[2022-06-23 04:24] LABS: Alanine Aminotransferase 46 U/L (6-35); Albumin Level 2.9 g/dL (3.5-5.1); Alkaline Phosphatase 164 U/L (38-126); Anion Gap 5 mmol/L (8-16); Aspartate Amino Transferase 84 U/L (14-36); Bilirubin,Total 0.8 mg/dL (0.2-1.3); Blood Urea Nitrogen 10 mg/dL (7-17); Calcium 8.4 mg/dL (8.4-10.2); Carbon Dioxide 30 mmol/L (22-30); Chloride 102 mmol/L (98-107); Estimated CRCL calculation 54 ml/min; Estimated Glomerular Filt Rate > 60; Glucose 108 mg/dL (65-110); Magnesium 1.7 mg/dL (1.6-2.3); Potassium 3.4 mmol/L (3.4-5.0); Sodium 137 mmol/L (137-145)
[2022-06-23 08:05] LABS: Glucose Point of Care 105 mg/dl (65-105)
[2022-06-23] MEDS: METOPROLOL SUCCINATE EXT REL 50 MG TABCR PO (09:27)
--- NOTE | 2022-06-23 11:33 | PC.NURSE ---
To GI Lab per wheelchair, IV saline locked. Report given to Shweta.
[2022-06-23 11:43] LABS: Glucose Point of Care 111 mg/dl (65-105)
[2022-06-23] MEDS: LACTATED RINGERS 1,000 ML 150 ML IV CONT (11:46)
--- NOTE | 2022-06-23 12:21 | WPDANESEPPF ---
Anes - Initial Pre Proc Eval Procedure: Operation Date: 06/23/22 13:30 Proposed Procedures p Esophagogastroduodenoscopy - Gary Sheffield MD Date/Time: 06/23/22 12:21 Surgeon: Sathish Triplett MD Pre Op Diagnosis: Hypokalemia, dizziness, transaminitis Patient Data Age: 66 Gender: F Height: 1.52 m Weight: 60 kg Last Vital Signs Temp 97.4 F L 06/23/22 11:42 Pulse 55 L 06/23/22 11:42 Resp 20 06/23/22 11:42 BP 120/83 06/23/22 11:42 Pulse Ox 96 06/23/22 11:42 O2 Del Method Room Air 06/23/22 11:42 Allergies Allergy/AdvReac Type Severity Reaction Status Date / Time Penicillins Allergy Unknown Verified 06/19/22 16:17 Home Medications Medication Instructions Recorded Confirmed Type chlorthalidone 50 mg tablet 50 mg PO DAILY 06/19/22 06/19/22 History glyburide micronized 3 mg tablet 3 mg PO BID 06/19/22 06/19/22 History (Glynase) metoprolol succinate 50 mg 50 mg PO BID 06/19/22 06/19/22 History tablet,extended release 24 hr Laboratory Tests 06/22/22 06/22/22 06/22/22 13:19 16:13 19:59 WBC RBC Hgb Hct MCV MCH MCHC RDW Plt Count MPV Immature Gran % (Auto) Neut % (Auto) Lymph % (Auto) [place] % (Auto) Eos % (Auto) Baso % (Auto) Lymph # (Auto) [place] # (Auto) Eos # (Auto) Baso # (Auto) Abs Immat Gran (auto) Absolute Neuts (auto) Absolute Nucleated RBC Nucleated RBC % % Immature Plt Fraction APTT 66.8 SECONDS H SECONDS 127.6 SECONDS H SECONDS (22.3-36.8) (22.3-36.8) Sodium Potassium Chloride Carbon Dioxide Anion Gap BUN Creatinine Estim Creat Clear Calc Estimated GFR Glucose POC Capillary Glucose 171 mg/dl H mg/dl (65-105) Calcium Magnesium Total Bilirubin AST ALT Alkaline Phosphatase Total Protein Albumin 06/23/22 06/23/22 06/23/22 03:47 03:47 03:47 WBC 4.5 K/mm3 K/mm3 (4.5-10.0) RBC 4.10 M/mm3 L M/mm3 (4.2-5.4) Hgb 12.7 g/dL g/dL (12.0-15.0) Hct 38.7 % % (37.0-47.0) MCV 94.4 fl fl (80-100) MCH 31.0 pg pg (26-34) MCHC 32.8 g/dl g/dl (32-36) RDW 13.3 % % (11.5-14.5) Plt Count 72 k/mm3 L k/mm3 (150-375) MPV 13.0 fl H fl (7.4-10.4) Immature Gran % (Auto) 0.2 % % (0-0.5) Neut % (Auto) 49.2 % % (45.5-73.1) Lymph % (Auto) 34.9 % % (18.3-44.2) [place] % (Auto) 11.0 % H % (2.6-8.5) Eos % (Auto) 3.1 % % (0-4.4) Baso % (Auto) 1.6 % H % (0.2-1.2) Lymph # (Auto) 1.56 K/mm3 K/mm3 (0.9-3.2) [place] # (Auto) 0.5 K/mm3 K/mm3 (0.1-0.6) Eos # (Auto) 0.1 K/mm3 K/mm3 (0-0.3) Baso # (Auto) 0.1 K/mm3 K/mm3 (0.0-0.1) Abs Immat Gran (auto) 0.01 K/mm3 K/mm3 (0.00-0.031) Absolute Neuts (auto) 2.2 K/mm3 K/mm3 (1.3-6.7) Absolute Nucleated RBC 0.0 K/mm3 K/mm3 (0.0-0.012) Nucleated RBC % 0.0 % % (0.0-0.2) % Immature Plt Fraction 18.2 % H % (0.9-11.2) APTT 62.4 SECONDS H SECONDS (22.3-36.8) Sodium 137 mmol/L mmol/L (137-145) Potassium 3.4 mmol/L mmol/L (3.4-5.0) Chloride 102 mmol/L mmol/L (98-107) Carbon Dioxide 30 mmol/L mmol/L (22-30) Anion Gap 5 mmol/L L mmol/L (8-16) BUN 10 mg/dL mg/dL (7-17) Creatinine 0.70 mg/dL mg/dL (0.7-1.0) Estim Creat Clear Calc
[2022-06-23 13:18] LABS: Glucose Point of Care 93 mg/dl (65-105)
--- NOTE | 2022-06-23 15:14 | PM.IMPN ---
Progress Note: A&P Assessment and Plan (1) Cirrhosis: Code(s): K74.60 - Unspecified cirrhosis of liver Status: Acute (2) Portal vein thrombosis: Code(s): I81 - Portal vein thrombosis Status: Acute (3) Dizziness: Code(s): R42 - Dizziness and giddiness Status: Acute (4) Hypokalemia: Code(s): E87.6 - Hypokalemia Status: Acute (5) Elevated LFTs: Code(s): R79.89 - Other specified abnormal findings of blood chemistry Status: Acute (6) Urinary tract infection: Qualifiers: Hematuria presence: without hematuria Urinary tract infection type: acute cystitis Qualified Code(s): N30.00 - Acute cystitis without hematuria Code(s): N39.0 - Urinary tract infection, site not specified Status: Acute (7) Hypertension: Code(s): I10 - Essential (primary) hypertension Status: Acute (8) Vertigo: Code(s): R42 - Dizziness and giddiness Status: Acute (9) Diabetes mellitus: Code(s): E11.9 - Type 2 diabetes mellitus without complications Status: Acute Plan # Nausea vomiting headache dizziness this has resolved # History of vertigo # Mild thrombocytopenia no baseline available.? Due to chronic liver disease. Slight worsening # Urinary tract infection continue ceftriaxone urine culture with E coli sensitive to ceftriaxone. Will finish the antibiotic course she is on D5 today # Portal vein thrombosis related to cirrhosis of liver.? H&H is stable no history of bleeding will cover with heparin GTT due to unknown bleeding history and/or varices status.? Will check AFP.? Hepatitis panel is negative.? No history of alcohol use.? Venous thrombosis panel order. Consult. EGD to assess variceal status planned in Thursday.? Due to bleeding risks will start with heparin GTT rather than longer acting anticoagulation.? Discussed with Radiology and noted complete occlusion of portal vein.? Unable to determine whether acute or chronic but does not seem she is much symptomatic with this. Continue heparin drip she is tolerating Platelet count slightly low will continue to monitor #Hypokalemia severe replace as needed.? Magnesium is normal.? Replace potassium and recheck and monitor she is on chlorthalidone at home will need to stop that. If needed will add amlodipine #DVT prophylaxis heparin GTT #Code status full code Subjective Date/time seen: 06/23/22 15:14 Interval history: Patient presented with nausea vomiting dizziness. Carpenters Helper is her grandson who was at bedside. She came from [place] few days ago. Denies any abdominal pain. Not having any diarrhea. Did have nausea and vomiting please out. No fever chills shortness of breath chest pain. She was noted to have severe hypo kalemia which is getting was placed. Routine lab work showed findings of cirrhosis with portal vein thrombosis. There was also possible gallbladder polyp versus sludge versus chronic cholecystitis. She has underlying diabetes. No history of alcohol use. She has been diagnosed with some liver problem in [place] 06/21/2022 feeling better. Denies any complaints. Abdominal pain nausea vomiting 06/22/2022 no overnight events. Denies any complaints. Used a leather production machine operator on the phone to communicate. No abdominal pain nausea vomiting. 06/23/2022 no overnight events. No further nausea vomiting. No abdominal pain. Going for an EGD today. Seen earlier today Review of Systems Review of Systems: All systems reviewed & are unremarkable except as noted in HPI and below Exam Narrative: GENERAL: The patient is well developed, not in acute distress HEENT: Nonicteric sclerae, PERRLA, EOMI. Oropharynx clear. Moist mucous membranes. Conjunctivae appear well perfused. CHEST: Chest wall is nontender. HEART: Regular rate and rhythm without murmur, rubs, or gallops LUNGS: Clear to auscultation bilaterally. no respiratory distress ABDOMEN: Soft, positive bowel sounds, non-te
[2022-06-23 18:02] LABS: Glucose Point of Care 233 mg/dl (65-105)
[2022-06-23] MEDS: PROPRANOLOL HCL 10 MG TABLET PO (20:21)
[2022-06-23 20:41] LABS: Glucose Point of Care 166 mg/dl (65-105)
[2022-06-24 06:01] LABS: Basophils Absolute Auto 0.1 K/mm3 (0.0-0.1); Eosinophils Absolute Auto 0.2 K/mm3 (0-0.3); Eosinophils Percent Auto 3.4 % (0-4.4); Hematocrit 42.3 % (37.0-47.0); Hemoglobin 13.8 g/dL (12.0-15.0); Immature Granulocyte Absolute 0.01 K/mm3 (0.00-0.031); Immature Granulocyte Percent A 0.2 % (0-0.5); Immature Platelet Fraction Pct 18.6 % (0.9-11.2); Lymphocytes Absolute Auto 1.51 K/mm3 (0.9-3.2); Lymphocytes Percent Auto 30.5 % (18.3-44.2); Mean Corpuscular HGB Conc 32.6 g/dl (32-36); Mean Corpuscular Hemoglobin 30.7 pg (26-34); Mean Platelet Volume 13.5 fl (7.4-10.4); Monocytes Absolute Auto 0.6 K/mm3 (0.1-0.6); Monocytes Percent Auto 11.3 % (2.6-8.5); Neutrophils Absolute Auto 2.7 K/mm3 (1.3-6.7); Neutrophils Percent Auto 53.6 % (45.5-73.1); Platelet Count Result 71 k/mm3 (150-375); Red Cell Distribution Width 13.4 % (11.5-14.5)
[2022-06-24 06:17] LABS: Alanine Aminotransferase 47 U/L (6-35); Albumin Level 3.2 g/dL (3.5-5.1); Alkaline Phosphatase 158 U/L (38-126); Anion Gap 5 mmol/L (8-16); Aspartate Amino Transferase 84 U/L (14-36); Bilirubin,Total 0.9 mg/dL (0.2-1.3); Blood Urea Nitrogen 9 mg/dL (7-17); Calcium 8.4 mg/dL (8.4-10.2); Carbon Dioxide 30 mmol/L (22-30); Chloride 102 mmol/L (98-107); Estimated CRCL calculation 54 ml/min; Estimated Glomerular Filt Rate > 60; Glucose 106 mg/dL (65-110); Magnesium 1.7 mg/dL (1.6-2.3); Potassium 3.8 mmol/L (3.4-5.0); Sodium 137 mmol/L (137-145)
[2022-06-24 06:35] VITALS: BP 108/45; PULSE 61; RESP 18; TEMP 37.2; O2SAT 95
[2022-06-24 07:23] LABS: Glucose Point of Care 105 mg/dl (65-105)
[2022-06-24 08:49] VITALS: PULSE 86
[2022-06-24] MEDS: PROPRANOLOL HCL 10 MG TABLET PO (08:49)
--- NOTE | 2022-06-24 09:05 | PM.DS ---
DS: Admitting Diagnosis Discharge Date 06/24/22 Admitting Diagnosis nausea vomiting DS: Discharge Diagnosis Discharge Diagnosis (1) Cirrhosis: Code(s): K74.60 - Unspecified cirrhosis of liver Status: Acute (2) Portal vein thrombosis: Code(s): I81 - Portal vein thrombosis Status: Acute (3) Dizziness: Code(s): R42 - Dizziness and giddiness Status: Acute (4) Hypokalemia: Code(s): E87.6 - Hypokalemia Status: Acute (5) Elevated LFTs: Code(s): R79.89 - Other specified abnormal findings of blood chemistry Status: Acute (6) Urinary tract infection: Qualifiers: Hematuria presence: without hematuria Urinary tract infection type: acute cystitis Qualified Code(s): N30.00 - Acute cystitis without hematuria Code(s): N39.0 - Urinary tract infection, site not specified Status: Acute (7) Hypertension: Code(s): I10 - Essential (primary) hypertension Status: Acute (8) Vertigo: Code(s): R42 - Dizziness and giddiness Status: Acute (9) Diabetes mellitus: Code(s): E11.9 - Type 2 diabetes mellitus without complications Status: Acute DS: Summary Hospital Course Reason for hospitalization: nausea vomiting headache dizziness Hospital Course: # Nausea vomiting headache dizziness: Presenting complaint. this has resolved With symptomatic treatment # previous History of vertigo # Mild thrombocytopenia no baseline available.? Due to chronic liver disease. # Urinary tract infection: Patient was started on ceftriaxone. urine culture with E coli sensitive to ceftriaxone. She finished course of antibiotic during the hospital stay. # Portal vein thrombosis related to cirrhosis of liver.? H&H is stable no history of bleeding . Newly diagnosed however no prior records available. Patient is from [place]. She was started on heparin GTT. For risk stratification she underwent EGD and was found to have moderate size esophageal varices which were banded. Due to high risk of bleeding GI suggested no anticoagulation and given the fact that these portal vein thrombosis were asymptomatic and likely chronic in nature. She also had features of portal hypertension with portal hypertensive gastropathy. It is unclear why she has cirrhosis of liver. Further workup have been ordered which are pending. Hepatitis panel were negative. No prior history of alcohol use. She was started on propranolol for portal hypertension which is switched from her home metoprolol. He does not have any other complications such as ascites or hepatic encephalopathy. She will continue to follow-up with gastroenterology/hepatology for her cirrhosis of liver as an outpatient basis for further workup and treatment. 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 # Hypokalemia Severely low on admission. She is on chlorthalidone for hypertension prior to admission. Her potassium were replaced. Chlorthalidone was stopped and is recommended to stop upon discharge. Her blood pressure were well controlled without chlorthalidone. If blood pressure starts to trend up without floor thyroid on some other antihypertensive such as amlodipine would be reasonable option so as to avoid severe hypokalemia as she presented with. # DVT prophylaxis heparin GTT # Code status full code # Disposition: She is here to visit from [place] and is planning to go back in few months. She is advised to see PCP while she is here and also follow-up with hepatology if feasible Time Spent with Patient Time attestation: Total time spent providing and/or coordinating discharge services: 40 minutes Exam Narrative: GENERAL: The patient is well developed, not in acute distress HEENT: Nonicteric sclerae, PERRLA, EOMI. Oropharynx clear. Moist mucous membranes. Conjunctivae appear well perfused. CHEST: Chest wall is nontender. HEART: Regular rate an
[2022-06-25 11:34] LABS: Mitochondrial (M2) Ab (IgG) <=20.0 U (<=20.0)
[2022-06-25 20:42] LABS: Ceruloplasmin 26 mg/dL (18-53)
[2022-06-28 11:25] LABS: Anti Nuclear Antibody Pattern Nuclear, Speckled; Anti Nuclear Antibody Titer 1:40 (Negative)
[2022-06-30 07:27] LABS: Antithrombin III Activity 62 % normal (80-135); Factor V Leiden Mutation NEGATIVE; Protein S Antigen, Free 93 % normal (50-147)
== END 2022-06-24 10:40 | disposition home or self-care (01) | DRG 463 ==
LOC: ANHED 17:41 → ANH2MED 19:11
PROVIDERS: Internal Medicine; Internal Medicine Gastroenterology; Physician Assistant; Admitting Provider Family Medicine; Emergency Provider Emergency Medicine; Visit Provider Internal Medicine
PROC: 0DJ08ZZ Inspection of Upper Intestinal Tract, Via Natural or Artificial Opening Endoscopic (ICD-10-PCS; CPT 43235; principal; 2022-06-23 13:30)
DX: N39.0 Urinary tract infection, site not specified (principal); B96.20 Unspecified Escherichia coli [E. coli] as the cause of diseases classified elsewhere; Z20.822 Contact with and (suspected) exposure to COVID-19; I81 Portal vein thrombosis; K76.6 Portal hypertension; E87.6 Hypokalemia; K31.89 Other diseases of stomach and duodenum; K74.60 Unspecified cirrhosis of liver; K75.81 Nonalcoholic steatohepatitis (NASH); I85.00 Esophageal varices without bleeding; D69.59 Other secondary thrombocytopenia; K29.70 Gastritis, unspecified, without bleeding; R42 Dizziness and giddiness; K82.4 Cholesterolosis of gallbladder; K81.1 Chronic cholecystitis; I10 Essential (primary) hypertension; E11.9 Type 2 diabetes mellitus without complications
CPT/HCPCS: 36415; 70450; 74175; 76705; 80053; 80074; 81001; 81240; 81241; 82104; 82390; 82728; 82948; 83520; 83540; 83550; 83690; 83735; 84132; 84484; 85025; 85027; 85055; 85301; 85303; 85306; 85610; 85730; 86038; 86039; 87077; 87086; 87186; 93005; 96361; 96365; 96366; 96367; 96368; 96375; 99285; A9270; C9803; G0378; J0696; J1644; J2405; J2704; J3480; J7030; J7040; J7120; Q9967; U0003; U0005

== ENCOUNTER 2022-07-18 08:48 | Outpatient (CLI) | payer MEDICAID, SELFPAY ==
[2022-07-18 09:11] LABS: Basophils Absolute Auto 0.1 K/mm3 (0.0-0.1); Basophils Percent Auto 0.9 % (0.2-1.2); Eosinophils Absolute Auto 0.1 K/mm3 (0-0.3); Eosinophils Percent Auto 1.2 % (0-4.4); Hematocrit 41.9 % (37.0-47.0); Hemoglobin 13.5 g/dL (12.0-15.0); Immature Granulocyte Absolute 0.01 K/mm3 (0.00-0.031); Immature Granulocyte Percent A 0.1 % (0-0.5); Immature Platelet Fraction Pct 12.6 % (0.9-11.2); Lymphocytes Absolute Auto 1.66 K/mm3 (0.9-3.2); Lymphocytes Percent Auto 24.2 % (18.3-44.2); Mean Corpuscular HGB Conc 32.2 g/dl (32-36); Mean Corpuscular Volume 96.1 fl (80-100); Mean Platelet Volume 12.3 fl (7.4-10.4); Monocytes Absolute Auto 0.5 K/mm3 (0.1-0.6); Monocytes Percent Auto 7.9 % (2.6-8.5); Neutrophils Absolute Auto 4.5 K/mm3 (1.3-6.7); Neutrophils Percent Auto 65.7 % (45.5-73.1); Platelet Count Result 101 k/mm3 (150-375); Red Blood Count 4.36 M/mm3 (4.2-5.4); Red Cell Distribution Width 13.4 % (11.5-14.5); White Blood Count 6.9 K/mm3 (4.5-10.0)
[2022-07-18 09:48] LABS: Alanine Aminotransferase 32 U/L (6-35); Albumin Level 3.8 g/dL (3.5-5.1); Alkaline Phosphatase 159 U/L (38-126); Anion Gap 6 mmol/L (8-16); Aspartate Amino Transferase 61 U/L (14-36); Bilirubin,Total 1.1 mg/dL (0.2-1.3); Blood Urea Nitrogen 12 mg/dL (7-17); Calcium 9.5 mg/dL (8.4-10.2); Carbon Dioxide 32 mmol/L (22-30); Chloride 100 mmol/L (98-107); Cholesterol 207 mg/dL (0-200); Estimated Glomerular Filt Rate > 60; Glucose 77 mg/dL (65-110); HDL Direct 37 mg/dL; Sodium 138 mmol/L (137-145); Triglycerides 261 mg/dL (<150)
[2022-07-18 09:59] LABS: LDL Cholesterol Direct 112 mg/dL
[2022-07-18 10:02] LABS: Hemoglobin A1C 7.3 % (<5.7)
[2022-07-18 10:05] LABS: T4 Thyroxine 8.62 ug/dL (5.53-11.0)
[2022-07-18 10:51] LABS: Vitamin D 25 Hydroxy 42.9 ng/mL
== END 2022-07-18 08:49 | disposition home or self-care (01) ==
PROVIDERS: Visit Provider Family Medicine
DX: E78.5 Hyperlipidemia, unspecified (principal); I10 Essential (primary) hypertension; E55.9 Vitamin D deficiency, unspecified; E11.9 Type 2 diabetes mellitus without complications; Z13.0 Encounter for screening for diseases of the blood and blood-forming organs and certain disorders involving the immune mechanism; Z13.6 Encounter for screening for cardiovascular disorders; Z13.220 Encounter for screening for lipoid disorders; Z13.29 Encounter for screening for other suspected endocrine disorder; Z13.1 Encounter for screening for diabetes mellitus
CPT/HCPCS: 36415; 80053; 80061; 82306; 83036; 84436; 84443; 84480; 85025; 85055

== ENCOUNTER 2022-10-10 16:00 | Emergency (ER) | payer MEDICAID, SELFPAY ==
--- NOTE | ~2022-10-10 | CT_ITS ---
EXAMINATION: CT abdomen pelvis wo con DATE: 10/10/2022 19:04 INDICATION: Left flank pain TECHNIQUE: Computed tomography (CT) of the abdomen and pelvis was performed without intravenous contr ast. The dose-length product (DLP) was 375.92 mGy-cm. Automated exposure control and iterative recons truction technique were employed. COMPARISON: 06/19/2022 FINDINGS: Minimal dependent atelectasis is present in the lung bases. The heart size is normal. There is mild nodularity of the liver surface. The spleen, pancreas, and adrenal glands are normal. A ston e is present in the gallbladder which is not distended. The kidneys are unremarkable. No pathological ly enlarged abdominal or pelvic lymph nodes are identified. The appendix is normal. There is no free intraperitoneal gas or evidence of bowel obstruction. There are unchanged bilateral L5 pars defects w ith grade 1 anterolisthesis of L5 on S1. IMPRESSION: 1. Unchanged bilateral L5 pars defects with grade 1 anterolisthesis of L5 on S1. 2. Cirrhosis. Reviewed, dictated and finalized at location [facility]. [employer] PSYCHOLOGY PROFESSOR IMPRESSION: 1. Unchanged bilateral L5 pars defects with grade 1 anterolisthesis of L5 on S1 . 2. Cirrhosis.
[2022-10-10 16:03] VITALS: BP 134/52; PULSE 63; RESP 18; TEMP 35.9; O2SAT 98
--- NOTE | 2022-10-10 17:56 | ED.BACK ---
HPI - Back Pain/Injury General Chief Complaint: Back Pain/Injury Stated Complaint: left sided back pain, right foot pain Time Seen by Provider: 10/10/22 17:18 History of Present Illness HPI Narrative: 67-year-old female presenting to the emergency department for evaluation of low back pain. Patient states on Thursday she went to stand up from the couch and had onset of lower back pain. Patient states the pain does radiate down her left leg and intermittently down her right. Patient denies any pain with urination. Patient denies any associated numbness or weakness. Patient denies any difficulty starting urination denies any loss of bowel or bladder control. Patient has no prior history of back surgeries. Patient denies any prior history of kidney stones and denies any urinary symptoms. Related Data Home Medications Medication Instructions Recorded Confirmed glyburide micronized 3 mg tablet 3 mg PO BID 06/19/22 06/19/22 (Glynase) Allergies Allergy/AdvReac Type Severity Reaction Status Date / Time Penicillins Allergy Unknown Verified 06/19/22 16:17 Review of Systems Review of Systems: CONSTITUTIONAL: Denies fever, chills, or sweats. EYES: Denies visual changes, redness, or discharge. ENT: Denies rhinorrhea, congestion, sore throat, or otalgia. CARDIOVASCULAR: Denies chest pain, palpitations, or edema. RESPIRATORY: Denies cough or dyspnea. GASTROINTESTINAL: Denies abdominal pain, nausea, vomiting, or diarrhea. GENITOURINARY: Denies dysuria or hematuria. SKIN: Denies rash or itching. MUSCULOSKELETAL: See HPI NEUROLOGIC: See HPI PMFSH Past Medical History Medical History (Updated 10/11/22 @ 00:00 by Maribell Carrillo) Cirrhosis Diabetes mellitus Hypertension Vertigo Surgical History Surgical History (Updated 06/19/22 @ 13:54 by Mica Carmona PA-C) No pertinent past surgical history Family History Family History (Updated 06/19/22 @ 21:21 by Mehnaz Langley RN) Mother Asthma Social History Social History (Updated 06/19/22 @ 13:54 by Mica Carmona PA-C) Smoking status: Never smoker Alcohol intake: never Substance use: never Spiritual care concerns: No Exam Narrative: APPEARANCE: Well appearing, no pain, no distress, well-nourished. HEAD: normocephalic, atraumatic. EYES: PERRLA/EOMI, conjunctivae clear. NOSE: Normal no drainage NECK: Supple. No adenopathy, no masses. RESPIRATORY: Airway patent, respirations nonlabored. Clear to auscultation bilaterally, no rales, rhonchi, wheezing. CARDIOVASCULAR: Regular rate and rhythm without murmurs rubs or gallops. ABDOMINAL: Soft, nontender, nondistended, normal bowel sounds MUSCULOSKELETAL: Moves all extremities. Lower back tenderness to palpation NEURO: Alert. Cranial nerves II through XII intact. Grossly intact SKIN: Warm, dry. Normal Color Course Course Emergency Course: Patient UA did have some hematuria. CT scan was done to rule out stones. No acute finding on CT scan. Patient did feel improved with treatment. Patient and family were updated the results of the work-up. All questions and concerns were addressed Vital Signs Vital signs: Vital Signs Temperature 96.7 F L 10/10/22 16:03 Pulse Rate 63 10/10/22 16:03 Respiratory Rate 18 10/10/22 16:03 Blood Pressure 134/52 L 10/10/22 16:03 Pulse Oximetry 98 10/10/22 16:03 Oxygen Delivery Room Air 10/10/22 16:03 Temperature 96.7 F L 10/10/22 16:03 Pulse Rate 63 10/10/22 16:03 Respiratory Rate 18 10/10/22 16:03 Blood Pressure 134/52 L 10/10/22 16:03 Pulse Oximetry 98 10/10/22 16:03 Oxygen Delivery Room Air 10/10/22 16:03 MDM - Back Pain/Injury Lab Data Labs: Lab Results 10/10/22 Range/Units 18:43 Urine Color Yellow (Yellow) Urine Appearance Clear (Clear) Urine pH 7.0 (5.0-9.0) Ur Specific [place] 1.010 (1.001-1.035) Urine Protein 1+ H (Negative) mg/dL Urine Glucose (UA) Trace H
[2022-10-10] MEDS: HYDROcodone/acetaminophen (*CRX) 5-325 MG TABLET 1 TAB PO (18:07)
[2022-10-10] MEDS: CYCLOBENZAPRINE HCL 10 MG TABLET PO (18:08)
[2022-10-10 18:49] LABS: Appearance Urine Clear (Clear); Bilirubin Urine Negative (Negative); Blood Urine 1+ (Negative); Color Urine Yellow (Yellow); Glucose Urine UA Trace mg/dL (Negative); Ketones Urine Negative (Negative); Leukocyte Esterase Ur 1+ LEU/UL (Negative); Nitrate Urine Negative (Negative); Protein Urine 1+ mg/dL (Negative); Urobilinogen Urine 0.2 mg/dL (<2.0)
[2022-10-10 18:55] LABS: Bacteria Urine 2+ /hpf; Mucus Urine Rare /lpf; RBC Urine 0-2 /hpf (0-2); Squamous Epithelial Cell Urine Rare /hpf (Few); WBC Urine 16-20 /hpf
[2022-10-10 18:57] LABS: Add Urine Microscopic? YES
== END 2022-10-10 19:37 | disposition home or self-care (01) ==
PROVIDERS: Emergency Provider Emergency Medicine; PCP Family Medicine
DX: M54.50 Low back pain, unspecified (principal); E11.9 Type 2 diabetes mellitus without complications; I10 Essential (primary) hypertension
CPT/HCPCS: 74176; 81001; 87077; 87086; 87186; 99284; A9270

== ENCOUNTER 2022-10-20 17:40 | Emergency (ER) | payer MEDICAID, SELFPAY ==
--- NOTE | ~2022-10-20 | XR_ITS ---
EXAMINATION: XR chest 2V Exam Date/Time: 10/20/2022 18:20 PROTECTIVE OFFICER HISTORY: dizziness, HTN, DIABETIC-ELEVATED BLOOD SUGAR Comparison: None available. RESULT: Lines, tubes, and devices: None. Lungs and pleura: Mild senescent change, otherwise clear. Cardiomediastinal silhouette: Unremarkable. Other: No acute osseous or upper abdominal finding. IMPRESSION: No acute cardiopulmonary process. Reviewed, dictated and finalized at location K. ECTIVE OFFICER
--- NOTE | ~2022-10-20 | XR_ITS ---
EXAM: XR tibia fibula RT 2V DATE: 10/20/2022 20:01 HISTORY: POSTERIOR CALF PAIN, NO INJURY . COMPARISON: None available. FINDINGS: Decreased mineralization. No fracture or dislocation. No lytic or blastic lesion. Mild kne e osteoarthritis. Achilles and plantar enthesopathy. No erosion or periosteal change. Soft tissues wi thin normal limits. IMPRESSION: No acute osseous finding in the right tibia or fibula. Reviewed, dictated and finalized at location K. [employer]
[2022-10-20 18:12] VITALS: BP 119/65; PULSE 71; RESP 16; TEMP 36.6; O2SAT 98
--- NOTE | 2022-10-20 18:16 | ECG_ITS ---
Measurements Intervals [place] Rate: 67 P: 19 WI: 168 QRS: 29 QRSD: 93 T: 23 QT: 470 QTc: 499 Interpretive Statements SINUS RHYTHM BASELINE ARTIFACT- III, AVR, AVL, AVF NORMAL ECG COMPARED TO ECG 06/19/2022 13:24:28 SINUS RHYTHM NOW PRESENT Electronically Signed On 10-21-2022 8:51:45 PLASTER MIXER by Jani Machado D.O.
[2022-10-20 18:29] LABS: Basophils Absolute Auto 0.1 K/mm3 (0.0-0.1); Basophils Percent Auto 1.3 % (0.2-1.2); Eosinophils Percent Auto 0.9 % (0-4.4); Hematocrit 45.2 % (37.0-47.0); Hemoglobin 15.1 g/dL (12.0-15.0); Immature Granulocyte Absolute 0.01 K/mm3 (0.00-0.031); Immature Granulocyte Percent A 0.2 % (0-0.5); Lymphocytes Percent Auto 25.9 % (18.3-44.2); Mean Corpuscular HGB Conc 33.4 g/dl (32-36); Mean Corpuscular Hemoglobin 30.4 pg (26-34); Mean Corpuscular Volume 90.9 fl (80-100); Mean Platelet Volume 12.4 fl (7.4-10.4); Monocytes Absolute Auto 0.5 K/mm3 (0.1-0.6); Monocytes Percent Auto 9.9 % (2.6-8.5); Neutrophils Absolute Auto 2.9 K/mm3 (1.3-6.7); Neutrophils Percent Auto 61.8 % (45.5-73.1); Platelet Count Result 92 k/mm3 (150-375); Red Blood Count 4.97 M/mm3 (4.2-5.4); Red Cell Distribution Width 12.2 % (11.5-14.5); White Blood Count 4.6 K/mm3 (4.5-10.0)
[2022-10-20 18:46] LABS: Alanine Aminotransferase 41 U/L (6-35); Albumin Level 4.3 g/dL (3.5-5.1); Alkaline Phosphatase 265 U/L (38-126); Anion Gap 10 mmol/L (8-16); Aspartate Amino Transferase 88 U/L (14-36); Bilirubin,Total 0.9 mg/dL (0.2-1.3); Blood Urea Nitrogen 15 mg/dL (7-17); Calcium 9.3 mg/dL (8.4-10.2); Carbon Dioxide 37 mmol/L (22-30); Chloride 86 mmol/L (98-107); Estimated CRCL calculation 38 ml/min; Estimated Glomerular Filt Rate 55; Glucose 304 mg/dL (65-110); Potassium 2.2 mmol/L (3.4-5.0); Sodium 133 mmol/L (137-145)
[2022-10-20 19:27] VITALS: BP 128/54; PULSE 69; RESP 17; O2SAT 100
--- NOTE | 2022-10-20 19:42 | ED.LOWEXIN ---
HPI - Extremity Injury (Lower) General Chief Complaint: Extremity Injury, Lower Stated Complaint: RIGHT LEG PAIN Time Seen by Provider: 10/20/22 19:21 History of Present Illness HPI Narrative: This is a 67-year-old female with with reported past medical history of diabetes and hypertension, presenting the emergency department complaining of right lower extremity weakness from the knee to the ankle for the past week. Pain is described as intermittent, sore, mild, without associated fevers, chills or swelling. She also complains of mild lightheadedness with noted home blood sugars in the 400s. She has no other complaints today. Related Data Home Medications Medication Instructions Recorded Confirmed glyburide micronized 3 mg tablet 3 mg PO BID 06/19/22 06/19/22 (Glynase) Allergies Allergy/AdvReac Type Severity Reaction Status Date / Time Penicillins Allergy Unknown Verified 06/19/22 16:17 Review of Systems Review of Systems: CONSTITUTIONAL: Denies fever, chills, or sweats. EYES: Denies visual changes, redness, or discharge. ENT: Denies rhinorrhea, congestion, sore throat, or otalgia. CARDIOVASCULAR: Denies chest pain, palpitations, or edema. RESPIRATORY: Denies cough or dyspnea. GASTROINTESTINAL: Denies abdominal pain, nausea, vomiting, or diarrhea. GENITOURINARY: Denies dysuria or hematuria. SKIN: Denies rash or itching. MUSCULOSKELETAL: Right leg pain denies back pain, joint pain, or myalgia. NEUROLOGIC: Lightheadedness denies headache, numbness, or weakness. PSYCHIATRIC: Denies anxiety or depression. PMFSH Past Medical History Medical History Cirrhosis Diabetes mellitus Hypertension Vertigo Surgical History Surgical History No pertinent past surgical history Family History Family History Mother Asthma Social History Social History Smoking status: Never smoker Alcohol intake: never Substance use: never Spiritual care concerns: No Exam Narrative: GENERAL: Well-developed, well-nourished, and in no acute distress. HEAD: Normocephalic, atraumatic. EYES: PERRLA and EOMI. ENT: Nares clear, no rhinorrhea or epistaxis. Mucous membranes moist. Oropharynx without tonsillar hypertrophy exudate or other lesions. NECK: Supple. No adenopathy or masses. No carotid bruits or JVD CHEST: Clear to auscultation. No respiratory distress. No wheezes rales or rhonchi HEART: Regular rate and rhythm. No murmur heard. Normal peripheral pulses. ABDOMEN: Soft, nontender, nondistended, normal active bowel sounds. EXTREMITIES: Mild tenderness to palpation of the posterior right calf without palpable mass; normal range of motion. No edema. SKIN: Warm, dry, no rash. NEURO: No focal deficits. Alert and oriented x3. PSYCH: Normal mood and affect. Course Course Emergency Course: 19:40 - Bedside right lower extremity ultrasound performed by me, is not concerning for DVT. 19:52 - Patient seen ambulating in the emergency department without significant difficulty. 23:59 - After significant delay, the patient's age-adjusted D-dimer is negative. Labs demonstrate hypokalemia at 2.2, glucose of 304 but are otherwise unremarkable, including a normal anion gap. X-rays of the right leg unremarkable. On reassessment, the patient's pain has resolved. I suspect either arthritic changes or hypokalemia as the cause of her discomfort. Will discharge with potassium supplementation and recommendation to follow-up with her primary care doctor. Discussed return emergency precautions including signs/symptoms of DVT and cellulitis. The patient voiced understanding and is comfortable with the plan. All questions answered to her satisfaction. Vital Signs Vital signs: Vital Signs Temperature 97.8 F 10/20/22
[2022-10-20] MEDS: SODIUM CHLORIDE 0.9% IV 1,000 ML 999 ML IV CONT (20:00)
[2022-10-20] MEDS: ACETAMINOPHEN 500 MG TABLET 1000 MG PO (20:01)
[2022-10-20] MEDS: POTASSIUM BICARBONATE 25 MEQ TABEF 50 MEQ PO (20:01)
[2022-10-20 20:36] LABS: Appearance Urine Clear (Clear); Bilirubin Urine Negative (Negative); Blood Urine 1+ (Negative); Glucose Urine UA 2+ mg/dL (Negative); Ketones Urine Negative (Negative); Leukocyte Esterase Ur 1+ LEU/UL (Negative); Nitrate Urine Negative (Negative); Protein Urine Trace mg/dL (Negative); Specific Grav Ur 1.015 (1.001-1.035); Urobilinogen Urine 0.2 mg/dL (<2.0)
[2022-10-20 20:37] LABS: Add Urine Microscopic? YES; Color Urine Light Yellow (Yellow)
[2022-10-20 21:02] VITALS: BP 115/58; PULSE 69; RESP 15; O2SAT 100
[2022-10-20 21:06] LABS: Bacteria Urine 4+ /hpf; RBC Urine 0-2 /hpf (0-2); Squamous Epithelial Cell Urine Rare /hpf (Few); WBC Urine 21-30 /hpf
[2022-10-20 21:56] LABS: Magnesium 2.7 mg/dL (1.6-2.3)
[2022-10-20 22:20] VITALS: BP 110/56; PULSE 66; RESP 21; O2SAT 99
--- NOTE | 2022-10-20 23:22 | PC.NURSE ---
Report given to Ingrid SANTIAGO
[2022-10-20 23:56] LABS: D Dimer 0.65 ug/mL (<0.48)
[2022-10-21 00:38] VITALS: BP 132/79; PULSE 84; RESP 18; TEMP 36.8; O2SAT 98
== END 2022-10-21 00:41 | disposition home or self-care (01) ==
PROVIDERS: Family Medicine; Emergency Provider Preventive Medicine Aerospace Medicine; PCP Family Medicine
DX: M79.661 Pain in right lower leg (principal); E87.6 Hypokalemia; E11.9 Type 2 diabetes mellitus without complications; K74.60 Unspecified cirrhosis of liver; Z79.84 Long term (current) use of oral hypoglycemic drugs
CPT/HCPCS: 36415; 71046; 73590; 80053; 81001; 83735; 85025; 85380; 87077; 87086; 87186; 93005; 96360; 96361; 99284; A9270; J7030

== ENCOUNTER 2022-10-28 09:03 | Outpatient (CLI) | payer MEDICAID, SELFPAY ==
[2022-10-28 13:17] LABS: Cholesterol 144 mg/dL (0-200); HDL Direct 40 mg/dL; Triglycerides 154 mg/dL (<150)
[2022-10-28 13:29] LABS: LDL Cholesterol Direct 67 mg/dL
== END 2022-10-28 09:04 | disposition home or self-care (01) ==
PROVIDERS: PCP Family Medicine; Visit Provider Nurse Practitioner Adult Health
DX: E78.5 Hyperlipidemia, unspecified (principal)
CPT/HCPCS: 36415; 80061

== ENCOUNTER 2023-07-02 08:00 | Outpatient (CLI) | payer MEDICAID, SELFPAY ==
[2023-07-02 09:18] LABS: Basophils Percent Auto 0.5 % (0.2-1.2); Eosinophils Percent Auto 0.2 % (0-4.4); Hematocrit 47.7 % (37.0-47.0); Hemoglobin 15.9 g/dL (12.0-15.0); Immature Granulocyte Absolute 0.03 K/mm3 (0.00-0.031); Immature Granulocyte Percent A 0.4 % (0-0.5); Immature Platelet Fraction Pct 20.1 % (0.9-11.2); Lymphocytes Absolute Auto 1.09 K/mm3 (0.9-3.2); Mean Corpuscular HGB Conc 33.3 g/dl (32-36); Mean Corpuscular Hemoglobin 28.9 pg (26-34); Mean Corpuscular Volume 86.6 fl (80-100); Mean Platelet Volume 13.3 fl (7.4-10.4); Monocytes Absolute Auto 0.6 K/mm3 (0.1-0.6); Monocytes Percent Auto 7.5 % (2.6-8.5); Neutrophils Absolute Auto 6.6 K/mm3 (1.3-6.7); Neutrophils Percent Auto 78.4 % (45.5-73.1); Platelet Count Result 63 k/mm3 (150-375); Red Blood Count 5.51 M/mm3 (4.2-5.4); Red Cell Distribution Width 14.5 % (11.5-14.5); White Blood Count 8.4 K/mm3 (4.5-10.0)
[2023-07-02 09:39] LABS: Hemoglobin A1C 9.2 % (<5.7)
[2023-07-02 09:41] LABS: LDL Cholesterol Direct 94 mg/dL
[2023-07-02 09:42] LABS: Alanine Aminotransferase 55 U/L (6-35); Albumin Level 3.5 g/dL (3.5-5.1); Alkaline Phosphatase 207 U/L (38-126); Aspartate Amino Transferase 62 U/L (14-36); Bilirubin,Total 1.6 mg/dL (0.2-1.3); Blood Urea Nitrogen 12 mg/dL (7-17); Calcium 8.4 mg/dL (8.4-10.2); Carbon Dioxide > 40 mmol/L (22-30); Chloride 85 mmol/L (98-107); Cholesterol 156 mg/dL (0-200); Estimated Glomerular Filt Rate 55; Glucose 96 mg/dL (65-110); HDL Direct 40 mg/dL; Potassium < 2.0 mmol/L (3.4-5.0); Sodium 133 mmol/L (137-145); Triglycerides 132 mg/dL (<150)
[2023-07-02 09:57] LABS: Total Triiodothyronine (T3) 1.01 NG/ML (0.97-1.69)
[2023-07-02 09:59] LABS: Free T4 Free Thyroxine 2.03 ng/mL (0.78-2.19)
== END 2023-07-02 08:01 | disposition home or self-care (01) ==
PROVIDERS: PCP Family Medicine; Visit Provider Nurse Practitioner Adult Health
DX: E11.9 Type 2 diabetes mellitus without complications (principal); I10 Essential (primary) hypertension; E78.5 Hyperlipidemia, unspecified; R53.1 Weakness; R53.83 Other fatigue
CPT/HCPCS: 36415; 80053; 80061; 83036; 84439; 84443; 84480; 85025; 85055

== ENCOUNTER 2023-07-02 16:30 | Observation (INO) | payer MEDICAID, SELFPAY ==
[2023-07-02] VITALS (10 sets, daily range): BP systolic 91–112; BP diastolic 46–56; PULSE 67–82; RESP 11–21; TEMP 36.1; O2SAT 95–100; BMI 23.2; BMI 23.4
--- NOTE | 2023-07-02 16:42 | ECG_ITS ---
Measurements Intervals [place] Rate: 78 P: 10 ID: [id number] QRS: 12 QRSD: 85 T: -13 QT: 412 QTc: 470 Interpretive Statements SINUS RHYTHM POSSIBLE INFERIOR MYOCARDIAL INFARCTION , OF INDETERMINATE AGE [30 ms Q WAVE IN II/aVF] MODERATE T-WAVE ABNORMALITY, CONSIDER ANTERIOR ISCHEMIA [-0.1+ mV T WAVE IN V3/V4] COMPARED TO ECG 10/20/2022 19:42:35 NO SIGNIFICANT CHANGES Electronically Signed On 07-03-2023 8:51:39 CDT by Ara Mcbride M.D.
--- NOTE | 2023-07-02 16:52 | ED.RECABL ---
HPI - Recheck/Abnormal Lab/Rx General Chief Complaint: Recheck/Abnormal Lab/Rx <Mica Carmona PA-C - Last Filed: 07/02/23 18:45> Stated Complaint: low potassium <Mica Carmona PA-C - Last Filed: 07/02/23 18:45> Time Seen by Provider: 07/02/23 16:44 <Mica Carmona PA-C - Last Filed: 07/02/23 18:45> Source: patient, family and old records reviewed <LEEROY Daniel Last Filed: 07/02/23 18:45> Mode of arrival: ambulatory <LEEROY Daniel Last Filed: 07/02/23 18:45> Limitations: no limitations and language barrier <LEEROY Daniel Last Filed: 07/02/23 18:45> History of Present Illness HPI narrative: Patient is a 67-year-old female who presents to the ED with report of abnormal labs. Patient is primarily Swazi-speaking. Family at bedside assisted with translation. 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 Patient had routine blood work drawn by her primary care doctor today and was notified to come to the ED as her potassium was very low. Per outpatient labs, potassium was less than 2.0. Patient has had issues with low potassium in the past. Per records, she has been as low as 2.2 in the past - last September 2022. Per med rec, she is on chlorthalidone. Does not appear she is on any potassium supplements. Patient does mention having intermittent dizziness over the last several weeks, denying any currently. Per records, patient has Hx of vertigo. She also reports having cramping in her lower legs, worse on the left leg. She denies any nausea, vomiting, diarrhea, abdominal pain, chest pain, shortness of breath, fevers. <Mica Carmona PA-C - Last Filed: 07/02/23 18:45> Related Data Home Medications: Home Medications Medication Instructions Recorded Confirmed glyburide micronized 3 mg tablet 3 mg PO BID 06/19/22 06/19/22 (Glynase) <Mica Carmona PA-C - Last Filed: 07/02/23 18:45> Allergies/Adverse Reactions: Allergies Allergy/AdvReac Type Severity Reaction Status Date / Time Penicillins Allergy Unknown Verified 06/19/22 16:17 <Mica Carmona PA-C - Last Filed: 07/02/23 18:45> Review of Systems Review of Systems: CONSTITUTIONAL: Denies fever, chills, or sweats. CARDIOVASCULAR: Denies chest pain. RESPIRATORY: Denies dyspnea. GASTROINTESTINAL: Denies abdominal pain, nausea, vomiting, or diarrhea. GENITOURINARY: Denies dysuria or hematuria. MUSCULOSKELETAL: See HPI. NEUROLOGIC: See HPI. <Mica Carmona PA-C - Last Filed: 07/02/23 18:45> All systems reviewed & are unremarkable except as noted in HPI and below <Mica Carmona PA-C - Last Filed: 07/02/23 18:45> PMFSH Past Medical History Medical History: Medical History Cirrhosis Diabetes mellitus Hypertension Vertigo <Mica Carmona PA-C - Last Filed: 07/02/23 18:45> Surgical History Surgical History: Surgical History No pertinent past surgical history <Mica Carmona PA-C - Last Filed: 07/02/23 18:45> Family History Family History: Family History Mother Asthma <Mica Carmona PA-C - Last Filed: 07/02/23 18:45> Social History Social History: Social History Smoking status: Never smoker Alcohol intake: never Substance use: never Spiritual care concerns: No <Mica Carmona PA-C - Last Filed: 07/02/23 18:45> Exam Narrative: GENERAL: Elderly, well-nourished, non-toxic, in no acute distress. HEAD: Normocephalic, atraumatic. ENT: MMs slightly dry. NECK: Supple. No adenopathy, no masses. RESPIRATORY: Airway patent, respirations nonlabored. Clear to auscultation bilaterally, no rales, rhonchi, wheezing.
[2023-07-02 17:09] LABS: Basophils Percent Auto 0.4 % (0.2-1.2); Eosinophils Percent Auto 0.3 % (0-4.4); Hematocrit 43.4 % (37.0-47.0); Hemoglobin 14.9 g/dL (12.0-15.0); Immature Granulocyte Absolute 0.03 K/mm3 (0.00-0.031); Immature Granulocyte Percent A 0.4 % (0-0.5); Immature Platelet Fraction Pct 20.8 % (0.9-11.2); Lymphocytes Absolute Auto 1.44 K/mm3 (0.9-3.2); Lymphocytes Percent Auto 18.3 % (18.3-44.2); Mean Corpuscular HGB Conc 34.3 g/dl (32-36); Mean Corpuscular Hemoglobin 29.2 pg (26-34); Mean Corpuscular Volume 85.1 fl (80-100); Monocytes Absolute Auto 0.8 K/mm3 (0.1-0.6); Monocytes Percent Auto 9.8 % (2.6-8.5); Neutrophils Absolute Auto 5.6 K/mm3 (1.3-6.7); Neutrophils Percent Auto 70.8 % (45.5-73.1); Platelet Count Result 76 k/mm3 (150-375); Red Cell Distribution Width 14.5 % (11.5-14.5); White Blood Count 7.9 K/mm3 (4.5-10.0)
[2023-07-02 17:19] LABS: Alanine Aminotransferase 51 U/L (6-35); Albumin Level 3.3 g/dL (3.5-5.1); Alkaline Phosphatase 234 U/L (38-126); Anion Gap 4 mmol/L (8-16); Aspartate Amino Transferase 70 U/L (14-36); Bilirubin,Total 1.3 mg/dL (0.2-1.3); Blood Urea Nitrogen 13 mg/dL (7-17); Calcium 8.3 mg/dL (8.4-10.2); Carbon Dioxide 36 mmol/L (22-30); Chloride 86 mmol/L (98-107); Estimated CRCL calculation 45 ml/min; Estimated Glomerular Filt Rate > 60; Glucose 181 mg/dL (65-110); Magnesium 2.4 mg/dL (1.6-2.3); Potassium 2.2 mmol/L (3.4-5.0); Sodium 126 mmol/L (137-145)
[2023-07-02 17:24] LABS: Platelet Estimate Decreased (Adequate); Schistocytes None Seen (NORMAL)
[2023-07-02] MEDS: SODIUM CHLORIDE 0.9% IV 1,000 ML 999 ML IV CONT (17:37)
[2023-07-02] MEDS: POTASSIUM CHLORIDE INJ 40 MEQ in SODIUM CHLORIDE 0.9% IV 500 ML 130 MEQ IVPB (17:37)
[2023-07-02] MEDS: POTASSIUM CHLORIDE 20 MEQ PACKET (FOR LIQUID) 40 MEQ PO (17:38)
--- NOTE | 2023-07-02 20:03 | PM.IMHP ---
H&P: HPI History of Present Illness Date/Time: 07/02/23 20:03 Chief Complaint: Dizziness Narrative: This is a 67-year-old female with past medical history significant for type diabetes mellitus, orally controlled, hypertension, vertigo. patient was brought to the emergency room after she was found to have a low potassium on lab work patient has been on chlorthalidone. patient denies any fevers, rigors, chills, cough, sputum production, no chest pain, no palpitations, no PND no orthopnea, no leg swelling, no nausea no vomiting no diarrhea. Patient is been admitted for further evaluation, management and treatment. EKG Rate 78 IA 187 QRSd 85 QT 412 QTc 470 --[place]-- P 10 QRS 12 T -13 SINUS RHYTHM POSSIBLE INFERIOR MYOCARDIAL INFARCTION , OF INDETERMINATE AGE [30 ms Q WAVE IN II/aVF] MODERATE T-WAVE ABNORMALITY, CONSIDER ANTERIOR ISCHEMIA [-0.1+ mV T WAVE IN V3/V4] COMPARED TO ECG 10/20/2022 19:42:35 NO SIGNIFICANT CHANGES Review of Systems Review of Systems: dizziness, leg cramps PMFSH Past Medical History Medical History Cirrhosis Diabetes mellitus Hypertension Vertigo Surgical History Surgical History No pertinent past surgical history Family History Family History Mother Asthma Social History Social History Smoking status: Never smoker Second hand tobacco smoke exposure: No Alcohol intake: never Substance use: never Substance use type: does not use Lack of Transportation: No Lack of Food: Never True Current Housing: I Have Housing Concerned About Future Housing: No Difficulty Paying Gas/Electric Bills: No Difficulty Paying for Meds: No Currently Unemployed: No Education: Decline to Answer Difficulty w/ Childcare or Family Care: No Spiritual care concerns: No Meds Home Medications and Allergies Home Medications Medication Instructions Recorded Confirmed Type multivitamin with minerals-folic See Rx Instructions .Route .COMPLEX 07/02/23 07/02/23 History acid 0.4 mg tablet propranolol 10 mg tablet 10 mg PO DAILY 07/02/23 07/02/23 History sitagliptin phosphate 50 mg tablet 50 mg PO DAILY 07/02/23 07/02/23 History (Clem) Allergies Allergy/AdvReac Type Severity Reaction Status Date / Time Penicillins Allergy Unknown Verified 06/19/22 16:17 Vital Signs Vital Signs - 24 hr 07/02/23 16:44 07/02/23 16:45 07/02/23 16:46 Pulse Rate 82 80 Respiratory Rate 20 21 H Blood Pressure 112/53 L Pulse Oximetry 95 95 95 07/02/23 17:16 07/02/23 18:02 07/02/23 18:15 Pulse Rate 74 75 75 Respiratory Rate 11 L 13 15 Blood Pressure 94/56 L Pulse Oximetry 97 100 99 07/02/23 19:01 07/02/23 19:16 07/02/23 19:30 Pulse Rate 69 75 67 Respiratory Rate 13 12 12 Blood Pressure 91/46 L 95/48 L Pulse Oximetry 96 97 95 Exam Narrative: PATIENT IS LAYING IN A STRETCHER Const: General: comfortable, no acute distress, well developed, alert, awake and average body habitus Nutritional Appearance: average body habitus Orientation/consciousness: patient oriented x3 HENMT: Head: normal to inspection, normocephalic and atraumatic Ears: hearing grossly normal bilaterally Face/Nose/Sinus: normal facial exam Face and sinus: normal facial exam Eyes: General: appearance normal, both eyes and all related structures Pupils: Equal, round and reactive pupils present EOM: EOMs intact bilaterally Neck: Neck: full ROM, no lymphadenopathy and no JVD Thyroid: thyroid normal Lymphatic: no lymphadenopathy noted Resp: Effort & Inspection: normal respiratory effort and able to speak in complete sentences Auscultation: clear to auscultation bilaterally Cardio: Jugular venous distension: no JVD Rate: regular rate Rhythm: regul
--- NOTE | 2023-07-02 20:41 | ADMGEN ---
This patient, Eboni Bolden, was admitted to Medical Room 341-01. Patient/family oriented to hospital policies and general routines including ID bracelet, bed and alarms, visiting hours, pain management, procedures, bathroom and other care routines, personal items, smoking policy, room service/diet, and visiting hours. Information on how to activate the Rapid Response Team has been discussed. Patient/Family are encouraged to report perceived risks to care and to ask questions if they do not understand what they are told or what they should do.
[2023-07-03] VITALS (10 sets, daily range): BP systolic 92–118; BP diastolic 42–60; PULSE 58–69; RESP 16–18; TEMP 35.9–36.6; O2SAT 95–99
[2023-07-03 00:41] LABS: Anion Gap 1 mmol/L (8-16); Blood Urea Nitrogen 11 mg/dL (7-17); Calcium 7.8 mg/dL (8.4-10.2); Carbon Dioxide 35 mmol/L (22-30); Chloride 97 mmol/L (98-107); Estimated CRCL calculation 42 ml/min; Estimated Glomerular Filt Rate > 60; Glucose 100 mg/dL (65-110); Potassium 2.6 mmol/L (3.4-5.0); Sodium 133 mmol/L (137-145)
[2023-07-03] MEDS: POTASSIUM CHLORIDE 20 MEQ ER TABLET 40 MEQ PO ×2 (01:15→10:52)
[2023-07-03] MEDS: POTASSIUM CHLORIDE INJ 40 MEQ in SODIUM CHLORIDE 0.9% IV 500 ML 130 MEQ IVPB (01:15)
[2023-07-03 08:28] LABS: Anion Gap 2 mmol/L (8-16); Blood Urea Nitrogen 10 mg/dL (7-17); Calcium 7.8 mg/dL (8.4-10.2); Carbon Dioxide 33 mmol/L (22-30); Chloride 101 mmol/L (98-107); Estimated CRCL calculation 42 ml/min; Estimated Glomerular Filt Rate > 60; Glucose 93 mg/dL (65-110); Potassium 3.3 mmol/L (3.4-5.0); Sodium 136 mmol/L (137-145)
[2023-07-03] MEDS: PROPRANOLOL HCL 10 MG TABLET PO (10:51)
--- NOTE | 2023-07-03 13:52 | PM.IMPN ---
Progress Note: A&P Assessment and Plan (1) Hypokalemia: Code(s): E87.6 - Hypokalemia Status: Acute Assessment and Plan: Corrected Monitor, recheck labs in the morning (2) Muscle cramping: Code(s): R25.2 - Cramp and spasm Status: Acute (3) Hyponatremia: Code(s): E87.1 - Hypo-osmolality and hyponatremia Status: Acute (4) Cirrhosis: Code(s): K74.60 - Unspecified cirrhosis of liver Status: Acute (5) Hypertension: Code(s): I10 - Essential (primary) hypertension Status: Acute (6) Diabetes mellitus: Code(s): E11.9 - Type 2 diabetes mellitus without complications Status: Acute Subjective Date/time seen: 07/03/23 13:52 Interval history: No complaints Exam Narrative: PATIENT IS LAYING IN A STRETCHER Const: General: comfortable, no acute distress, well developed, alert, awake and average body habitus Nutritional Appearance: average body habitus Orientation/consciousness: patient oriented x3 HENMT: Head: normal to inspection, normocephalic and atraumatic Ears: hearing grossly normal bilaterally Face/Nose/Sinus: normal facial exam Face and sinus: normal facial exam Eyes: General: appearance normal, both eyes and all related structures Pupils: Equal, round and reactive pupils present EOM: EOMs intact bilaterally Neck: Neck: full ROM, no lymphadenopathy and no JVD Thyroid: thyroid normal Lymphatic: no lymphadenopathy noted Resp: Effort & Inspection: normal respiratory effort and able to speak in complete sentences Auscultation: clear to auscultation bilaterally Cardio: Jugular venous distension: no JVD Rate: regular rate Rhythm: regular rhythm Heart sounds: S1 normal heart sound present and S2 normal heart sound present : General: Yes deferred Skin: Rashes: no rashes Wounds: no wounds Neuro: General: patient oriented x3, CN's II-XI intact bilaterally and Unable to assess gait Cranial nerves: Yes CN's II-XII intact bilaterally and Yes Equal, round and reactive pupils present Cognition (Neuro): normal cognition Speech: normal speech Gait exam (Neuro): Unable to assess gait Motor exam (neuro): 5/5 motor strength present throughout Extrem: General: normal to inspection, full ROM, no joint enlargement and no pedal edema Objective Data Vital Signs Vital Signs: Vital Signs - 24 hr 07/02/23 16:44 07/02/23 16:45 07/02/23 16:46 Temperature Pulse Rate 82 80 Respiratory Rate 20 21 H Blood Pressure 112/53 L Pulse Oximetry 95 95 95 Oxygen Delivery 07/02/23 17:16 07/02/23 18:02 07/02/23 18:15 Temperature Pulse Rate 74 75 75 Respiratory Rate 11 L 13 15 Blood Pressure 94/56 L Pulse Oximetry 97 100 99 Oxygen Delivery 07/02/23 19:01 07/02/23 19:16 07/02/23 19:30 Temperature Pulse Rate 69 75 67 Respiratory Rate 13 12 12 Blood Pressure 91/46 L 95/48 L Pulse Oximetry 96 97 95 Oxygen Delivery 07/02/23 20:48 07/02/23 22:15 07/03/23 00:00 Temperature 97 F L Pulse Rate 71 66 Respiratory Rate 16 Blood Pressure 92/50 L Pulse Oximetry 98 Oxygen Delivery Room Air 07/03/23 04:00 07/03/23 06:06 07/03/23 10:51 Temperature 97.8 F Pulse Rate 63 67 69 Respiratory Rate 18 Blood Pressure 103/45 L Pulse Oximetry 95 Oxygen Delivery 07/03/23 08:00 Temperature Pulse Rate 67 Respiratory Rate Blood Pressure Pulse Oximetry Oxygen Delivery Intake/Output Intake/Output: Intake & Output 06/30/23 07/01/23 07/02/23 07/03/23 23:59 23:59 23:59 23:59 Intake Total 1000 780 Balance 1000 780 Meds/Results Medications: Active Medications Generic Name Dose Route Start Last Admin Trade Name Freq PRN Reason Stop Dose Admin Propranolol HCl 10 mg 07/03/23 09:00 07/03/23 10:51 Propranolol Hcl 10 Mg Tablet PO 10 mg DAILY MAMADOU Administration Sitagliptin Phosphate 50 mg 07/03/23 09:00 07/03/23 10:52 Sitagliptin 50 Mg Tablet PO 50
[2023-07-03 18:19] LABS: Anion Gap 5 mmol/L (8-16); Blood Urea Nitrogen 13 mg/dL (7-17); Calcium 8.3 mg/dL (8.4-10.2); Carbon Dioxide 33 mmol/L (22-30); Chloride 96 mmol/L (98-107); Estimated CRCL calculation 42 ml/min; Estimated Glomerular Filt Rate > 60; Glucose 166 mg/dL (65-110); Potassium 3.8 mmol/L (3.4-5.0); Sodium 134 mmol/L (137-145)
[2023-07-03] MEDS: ACETAMINOPHEN 500 MG TABLET PO (20:29)
[2023-07-04] VITALS (8 sets, daily range): BP systolic 98–122; BP diastolic 43–58; PULSE 61–67; RESP 14–16; TEMP 36.2–36.5; O2SAT 96–97
[2023-07-04 06:30] LABS: Anion Gap 3 mmol/L (8-16); Blood Urea Nitrogen 14 mg/dL (7-17); Calcium 8.4 mg/dL (8.4-10.2); Carbon Dioxide 33 mmol/L (22-30); Chloride 97 mmol/L (98-107); Estimated CRCL calculation 42 ml/min; Estimated Glomerular Filt Rate > 60; Glucose 123 mg/dL (65-110); Potassium 2.9 mmol/L (3.4-5.0); Sodium 133 mmol/L (137-145)
[2023-07-04] MEDS: PROPRANOLOL HCL 10 MG TABLET PO (09:05)
[2023-07-04] MEDS: POTASSIUM CHLORIDE INJ 40 MEQ in SODIUM CHLORIDE 0.9% IV 500 ML 130 MEQ IVPB (10:01)
[2023-07-04] MEDS: POTASSIUM CHLORIDE 20 MEQ PACKET (FOR LIQUID) 40 MEQ PO (10:13)
[2023-07-04 14:00] LABS: Anion Gap 3 mmol/L (8-16); Blood Urea Nitrogen 12 mg/dL (7-17); Carbon Dioxide 33 mmol/L (22-30); Chloride 97 mmol/L (98-107); Estimated CRCL calculation 42 ml/min; Estimated Glomerular Filt Rate > 60; Glucose 288 mg/dL (65-110); Sodium 133 mmol/L (137-145)
--- NOTE | 2023-07-04 14:22 | PM.DS ---
DS: Admitting Diagnosis Discharge Date July 04, 2023 Admitting Diagnosis Hypokalemia, hyponatremia DS: Discharge Diagnosis Discharge Diagnosis (1) Hypokalemia: Code(s): E87.6 - Hypokalemia Status: Acute Assessment and Plan: Corrected Monitor, recheck labs in the morning (2) Muscle cramping: Code(s): R25.2 - Cramp and spasm Status: Acute (3) Hyponatremia: Code(s): E87.1 - Hypo-osmolality and hyponatremia Status: Acute (4) Cirrhosis: Code(s): K74.60 - Unspecified cirrhosis of liver Status: Acute (5) Hypertension: Code(s): I10 - Essential (primary) hypertension Status: Acute (6) Diabetes mellitus: Code(s): E11.9 - Type 2 diabetes mellitus without complications Status: Acute DS: Summary Hospital Course Hospital Course: Patient is a 67-year-old female who came in with electrolyte abnormalities. She had mildly reduced sodium and also low potassium. To know she had recently been on chlorthalidone. This was stopped and her electrolytes were replaced. She is asymptomatic and has remained asymptomatic during her hospitalization. She is walking around her room doing her normal activities and she can be discharged home. Follow up with her primary care physician. Time Spent with Patient Time attestation: Total time spent providing and/or coordinating discharge services: Exam Narrative: PATIENT IS LAYING IN A STRETCHER Const: General: comfortable, no acute distress, well developed, alert, awake and average body habitus Nutritional Appearance: average body habitus Orientation/consciousness: patient oriented x3 HENMT: Head: normal to inspection, normocephalic and atraumatic Ears: hearing grossly normal bilaterally Face/Nose/Sinus: normal facial exam Face and sinus: normal facial exam Eyes: General: appearance normal, both eyes and all related structures Pupils: Equal, round and reactive pupils present EOM: EOMs intact bilaterally Neck: Neck: full ROM, no lymphadenopathy and no JVD Thyroid: thyroid normal Lymphatic: no lymphadenopathy noted Resp: Effort & Inspection: normal respiratory effort and able to speak in complete sentences Auscultation: clear to auscultation bilaterally Cardio: Jugular venous distension: no JVD Rate: regular rate Rhythm: regular rhythm Heart sounds: S1 normal heart sound present and S2 normal heart sound present : General: Yes deferred Skin: Rashes: no rashes Wounds: no wounds Neuro: General: patient oriented x3, CN's II-XI intact bilaterally and Unable to assess gait Cranial nerves: Yes CN's II-XII intact bilaterally and Yes Equal, round and reactive pupils present Cognition (Neuro): normal cognition Speech: normal speech Gait exam (Neuro): Unable to assess gait Motor exam (neuro): 5/5 motor strength present throughout Extrem: General: normal to inspection, full ROM, no joint enlargement and no pedal edema DS: Data Data Completed and Pending Labs on day of discharge: Labs from last 24 hours 07/04/23 07/04/23 07/03/23 13:37 05:59 18:02 Sodium 133 L 133 L 134 L Potassium 4.0 2.9 L 3.8 Chloride 97 L 97 L 96 L Carbon Dioxide 33 H 33 H 33 H Anion Gap 3 L 3 L 5 L BUN 12 14 13 Creatinine 0.80 0.80 0.80 Estim Creat Clear Calc 42 42 42 Estimated GFR > 60 > 60 > 60 Glucose 288 H 123 H 166 H Calcium 8.0 L 8.4 8.3 L Discharge Plan Discharge Attending physician on discharge: Ramesh Oconnor Discharging Clinician: Ramesh Oconnor Patient Disposition: Home, Self-Care Activity: as tolerated Diet: as tolerated Patient Instructions: Antibiotic Form Stand Alone Forms: General Discharge Information Follow-up/Referrals: Nathan Bradley MD [Primary Care Provider] - Discharge Medications: Continued Januvia 50 mg Tablet 50 mg PO DAILY multivit with min-folic acid [Adult One Daily Multivitamin] 0.4 mg Tablet
== END 2023-07-04 16:55 | disposition home or self-care (01) ==
LOC: ANHED 17:53 → ANH3MED 07-03 14:01
PROVIDERS: Admitting Provider Internal Medicine; Emergency Provider Physician Assistant; PCP Family Medicine; Visit Provider Chiropractor
DX: E87.6 Hypokalemia (principal); E87.1 Hypo-osmolality and hyponatremia; R25.2 Cramp and spasm; I10 Essential (primary) hypertension; E11.9 Type 2 diabetes mellitus without complications; K74.60 Unspecified cirrhosis of liver; Z79.84 Long term (current) use of oral hypoglycemic drugs
CPT/HCPCS: 36415; 80048; 80053; 80061; 83036; 83735; 84439; 84443; 84480; 85025; 85055; 93005; 96361; 96374; 99285; A9270; G0378; G0379; J3480; J7030; J7040

== ENCOUNTER 2023-07-18 10:15 | Emergency (ER) | payer MEDICAID, SELFPAY ==
[2023-07-18] VITALS (19 sets, daily range): BP systolic 104–120; BP diastolic 55–81; PULSE 79; RESP 18; TEMP 36.6; O2SAT 91–100
--- NOTE | ~2023-07-18 | CT_ITS ---
EXAMINATION: CT abdomen pelvis w con DATE: 07/18/2023 13:20 INDICATION: Generalized abdominal pain, abdominal distention, diarrhea.. Bilateral lower extremity sw elling TECHNIQUE: Computed tomography (CT) of the abdomen and pelvis was performed with 100 CC Omnipaque 350 intravenous contrast. Automated exposure control and iterative reconstruction technique were employe d. Exam dose: 668.64 mGy-cm total exam DLP. COMPARISON: None. FINDINGS: Mild infiltrate or atelectasis at the lung bases, most prominent in the dependent right low er lobe. No pleural effusion or pericardial effusion. There are esophageal varices upper abdominal varices. There is surface nodularity of the liver. The t here is moderately prominent ascites. Findings are consistent with cirrhosis. No apparent focal hepatic space-occupying mass lesion is evident. The gallbladder is distended. No ga llbladder wall thickening. No bile duct or pancreatic duct dilatation is noted. No pancreatic mass le rona. Normal morphology of the adrenal glands. No renal mass lesion or urinary tract calculus or hydroureteronephrosis. There is atherosclerotic calcification but normal caliber of the abdominal aorta. No intraperitoneal or retroperitoneal or pelvic mass lesion or adenopathy is noted. The uterus and adnexal areas are unremarkable. The very small amount of air is noted in the urinary b ladder. Normal appendix. No bowel obstruction or intraperitoneal free air is detected. Prominent burst fractures of L2 and L3, prominent compression fracture of L4. Bilateral L5 pars interarticularis defects with grade 2 anterolisthesis and severe degenerative disc disease at L5-S1. IMPRESSION: Cirrhosis,, varices moderately prominent ascites Multiple lumbar spine fractures Grade 2 anterolisthesis and severe degenerative disease at L5-S1; bilateral L5 pars interarticularis defects Reviewed, dictated and finalized at [facility]. Reviewed, dictated and finalized at location [facility].
--- NOTE | 2023-07-18 10:31 | ED.ABDPAIN ---
HPI - Abdominal Pain General Chief Complaint: Abdominal Pain Stated Complaint: abd pain, swollen feet Time Seen by Provider: 07/18/23 10:31 Source: patient Mode of arrival: ambulatory Limitations: no limitations and language barrier History of Present Illness HPI narrative: 67 years old female does not speak Faroese, came to the ED with her daughter and grandson who are speaking Faroese. Complaining of swelling of the lower extremity after her family physician stopped chlorthalidone 3 weeks ago, also complaining of abdominal pain for the last 2 days, this morning had 6 episodes of watery stool. She denies any fever, chills, nausea or vomiting. No history of abdominal surgery. History of diabetes, hypertension not on any antiplatelet or anticoagulant medication, does not smoke or drink or uses drugs. Related Data Home Medications Medication Instructions Recorded Confirmed multivitamin with minerals-folic See Rx Instructions .Route .COMPLEX 07/02/23 07/02/23 acid 0.4 mg tablet propranolol 10 mg tablet 10 mg PO DAILY 07/02/23 07/02/23 sitagliptin phosphate 50 mg tablet 50 mg PO DAILY 07/02/23 07/02/23 (Januvia) Allergies Allergy/AdvReac Type Severity Reaction Status Date / Time Penicillins Allergy Unknown Verified 07/18/23 10:32 Review of Systems Review of Systems: All systems reviewed & are unremarkable except as noted in HPI and below PMFSH Past Medical History Medical History Cirrhosis Diabetes mellitus Hypertension Vertigo Surgical History Surgical History No pertinent past surgical history Family History Family History Mother Asthma Social History Social History Smoking status: Never smoker Second hand tobacco smoke exposure: No Alcohol intake: never Substance use: never Substance use type: does not use Lack of Transportation: No Lack of Food: Never True Current Housing: I Have Housing Concerned About Future Housing: No Difficulty Paying Gas/Electric Bills: No Difficulty Paying for Meds: No Currently Unemployed: No Education: Decline to Answer Difficulty w/ Childcare or Family Care: No Spiritual care concerns: No Exam Narrative: General appearance: Well-developed, well-nourished Skin: Normal color, 1+ edema lower extremity bilaterally mid lower leg bilaterally Head: Normocephalic, nontraumatic Eyes: Clear conjunctiva ENT: Oropharynx normal, ears normal, nose normal Neck: Supple, nontender Chest and respiratory: Airway patent, no respiratory distress, no accessory muscle use Heart: Regular rate/rhythm Abdomen: Soft, mild diffuse tenderness , no organomegaly, quiet bowel sounds Vascular: Normal peripheral pulses, normal capillary refill. Musculoskeletal: Normal range of motion, nontender back Neurologic: Alert and oriented ?3, BEAUTICIAN APPRENTICE is normal as tested, no gross motor deficit Course Reevaluation(s) Reevaluation #1: Currently patient is asymptomatic post IV fluid, Dilaudid and Zofran Date: 07/18/23 Time: 13:17 Vital Signs Vital signs: Vital Signs Temperature 36.6 C 07/18/23 10:28 Pulse Rate 79 07/18/23 10:28 Respiratory Rate 18 07/18/23 10:28 Blood Pressure 120/55 L 07/18/23 10:28 Pulse Oximetry 100 07/18/23 10:28 Oxygen Delivery Room Air 07/18/23 10:28 Temperature 36.6 C 07/18/23 10:28 Pulse Rate 79 07/18/23 10:28 Respiratory Rate 18 07/18/23 10:28 Blood Pressure 118/69 07/18/23 12:31 Pulse Oximetry 95 07/18/23
[2023-07-18 10:55] LABS: Hematocrit 42.2 % (37.0-47.0); Hemoglobin 13.6 g/dL (12.0-15.0); Immature Platelet Fraction Pct 12.9 % (0.9-11.2); Mean Corpuscular HGB Conc 32.2 g/dl (32-36); Mean Corpuscular Hemoglobin 29.3 pg (26-34); Mean Corpuscular Volume 90.9 fl (80-100); Mean Platelet Volume 12.7 fl (7.4-10.4); Platelet Count Result 82 k/mm3 (150-375); Red Blood Count 4.64 M/mm3 (4.2-5.4); Red Cell Distribution Width 17.1 % (11.5-14.5); White Blood Count 4.2 K/mm3 (4.5-10.0)
[2023-07-18] MEDS: SODIUM CHLORIDE 0.9% IV 1,000 ML 999 ML IV CONT (10:58)
[2023-07-18] MEDS: ONDANSETRON INJ 4 MG/2 ML VIAL IV PUSH (10:58)
[2023-07-18] MEDS: HYDROmorphone HCL INJ (*CRX) 1 MG/ML SYR 0.5 MG IV PUSH (10:59)
[2023-07-18 11:05] LABS: Alanine Aminotransferase 43 U/L (6-35); Albumin Level 3.3 g/dL (3.5-5.1); Alkaline Phosphatase 216 U/L (38-126); Anion Gap 3 mmol/L (8-16); Aspartate Amino Transferase 79 U/L (14-36); Bilirubin,Total 1.7 mg/dL (0.2-1.3); Blood Urea Nitrogen 6 mg/dL (7-17); Calcium 8.6 mg/dL (8.4-10.2); Carbon Dioxide 31 mmol/L (22-30); Chloride 104 mmol/L (98-107); Estimated CRCL calculation 62 ml/min; Estimated Glomerular Filt Rate > 60; Glucose 252 mg/dL (65-110); Lipase 26 U/L (23-300); Potassium 3.7 mmol/L (3.4-5.0); Sodium 138 mmol/L (137-145)
[2023-07-18 11:11] LABS: Appearance Urine Cloudy (Clear); Color Urine Dark Yellow (Yellow)
[2023-07-18 11:12] LABS: Bacteria Urine Rare /hpf; Bilirubin Urine 1+ (Negative); Blood Urine Trace (Negative); Glucose Urine UA Trace mg/dL (Negative); Ketones Urine Trace mg/dL (Negative); Leukocyte Esterase Ur 2+ LEU/UL (Negative); Nitrate Urine Positive (Negative); Protein Urine 1+ mg/dL (Negative); Specific Grav Ur 1.028 (1.001-1.035); Squamous Epithelial Cell Urine Many /hpf (Few); WBC Urine 51-100 /hpf
[2023-07-18 11:22] LABS: Add Urine Microscopic? YES
[2023-07-18 11:30] LABS: Band Neutrophils Percent 14 % (0-6); Basophils Absolute Manual 0.08 K/mm3 (0.0-0.1); Basophils Percent Manual 2 % (0-1); Eosinophils Absolute Manual 0.04 K/mm3 (0.02-0.5); Eosinophils Percent Manual 1 % (0-4); Metamyelocytes Percent 1 %; Monocytes Absolute Manual 0.37 K/mm3 (0.1-0.90); Monocytes Percent Manual 9 % (3-9); Neutrophils Absolute Manual 3.15 K/mm3 (1.7-7.2); Neutrophils Percent Manual 61 % (46-73); Platelet Estimate Decreased (Adequate); Schistocytes None Seen (NORMAL); Total Cells Counted 100
== END 2023-07-18 14:31 | disposition home or self-care (01) ==
PROVIDERS: Emergency Provider Emergency Medicine; PCP Family Medicine
DX: N39.0 Urinary tract infection, site not specified (principal); K74.60 Unspecified cirrhosis of liver; K76.6 Portal hypertension; E11.9 Type 2 diabetes mellitus without complications; I10 Essential (primary) hypertension
CPT/HCPCS: 36415; 74177; 80053; 81001; 83605; 83690; 85025; 85055; 87077; 87086; 87186; 96361; 96365; 96375; 99284; J0696; J1170; J2405; J7030; Q9967

== ENCOUNTER 2023-08-20 08:39 | Outpatient (CLI) | payer MEDICAID, SELFPAY ==
[2023-08-20 09:06] LABS: Basophils Percent Auto 0.6 % (0.2-1.2); Eosinophils Absolute Auto 0.1 K/mm3 (0-0.3); Eosinophils Percent Auto 1.5 % (0-4.4); Hematocrit 37.3 % (37.0-47.0); Hemoglobin 12.1 g/dL (12.0-15.0); Immature Granulocyte Absolute 0.01 K/mm3 (0.00-0.031); Immature Granulocyte Percent A 0.2 % (0-0.5); Lymphocytes Absolute Auto 0.96 K/mm3 (0.9-3.2); Lymphocytes Percent Auto 20.5 % (18.3-44.2); Mean Corpuscular HGB Conc 32.4 g/dl (32-36); Mean Corpuscular Hemoglobin 30.3 pg (26-34); Mean Corpuscular Volume 93.3 fl (80-100); Mean Platelet Volume 12.7 fl (7.4-10.4); Monocytes Absolute Auto 0.5 K/mm3 (0.1-0.6); Monocytes Percent Auto 10.7 % (2.6-8.5); Neutrophils Absolute Auto 3.1 K/mm3 (1.3-6.7); Neutrophils Percent Auto 66.5 % (45.5-73.1); Platelet Count Result 85 k/mm3 (150-375); White Blood Count 4.7 K/mm3 (4.5-10.0)
[2023-08-20 09:21] LABS: Alanine Aminotransferase 24 U/L (6-35); Albumin Level 2.9 g/dL (3.5-5.1); Alkaline Phosphatase 119 U/L (38-126); Anion Gap 5 mmol/L (8-16); Aspartate Amino Transferase 48 U/L (14-36); Bilirubin,Total 2.1 mg/dL (0.2-1.3); Blood Urea Nitrogen 9 mg/dL (7-17); Calcium 8.2 mg/dL (8.4-10.2); Carbon Dioxide 26 mmol/L (22-30); Chloride 107 mmol/L (98-107); Cholesterol 143 mg/dL (0-200); Estimated Glomerular Filt Rate > 60; Glucose 109 mg/dL (65-110); HDL Direct 27 mg/dL; Potassium 3.7 mmol/L (3.4-5.0); Sodium 138 mmol/L (137-145); Triglycerides 96 mg/dL (<150)
[2023-08-20 09:29] LABS: LDL Cholesterol Direct 89 mg/dL
[2023-08-20 09:31] LABS: Hemoglobin A1C 5.9 % (<5.7)
== END 2023-08-20 08:40 | disposition home or self-care (01) ==
LOC: ANHLAB 08:40
PROVIDERS: PCP Family Medicine; Visit Provider Nurse Practitioner Adult Health
DX: I10 Essential (primary) hypertension (principal); R60.0 Localized edema; E11.9 Type 2 diabetes mellitus without complications; E78.5 Hyperlipidemia, unspecified
CPT/HCPCS: 36415; 80053; 80061; 83036; 85025; 85055

== ENCOUNTER 2023-08-26 14:47 | Emergency (ER) | payer MEDICAID, SELFPAY ==
[2023-08-26] VITALS (14 sets, daily range): BP systolic 124–168; BP diastolic 66–86; PULSE 64–76; RESP 13–27; TEMP 36.7; O2SAT 97–100
--- NOTE | ~2023-08-26 | XR_ITS ---
EXAMINATION: XR chest 2V Exam Date/Time: 08/26/2023 18:45 CDT HISTORY: SOB, BILATERAL FEET SWELLING Comparison: 10/20/2022. RESULT: Lines, tubes, and devices: None. Lungs and pleura: Senescent change. Right lung volume loss with streaky and linear basilar atelectas is. Cardiomediastinal silhouette: Stable. Other: No acute osseous or upper abdominal finding. IMPRESSION: No acute cardiopulmonary process. Reviewed, dictated and finalized at [facility].
--- NOTE | ~2023-08-26 | CT_ITS ---
EXAMINATION: CT abdomen pelvis w con DATE: 08/26/2023 21:09 INDICATION: abd pain, distension, hx cirrhosis TECHNIQUE: Computed tomography (CT) of the abdomen and pelvis was performed with 100 mL Omnipaque-350 intravenous contrast. Automated exposure control and iterative reconstruction technique were employe d. The dose-length product was 708.28 mGy-cm. COMPARISON: 07/18/2023. FINDINGS: Lower thorax: Bibasilar atelectasis. Coronary artery calcification. Liver: Small nodular liver. Biliary/Gallbladder: Gallbladder is normal. No bile duct dilation. Pancreas: No mass or duct dilation. Spleen: Normal. Adrenals:No mass. Kidneys: No suspicious mass, obstructing stone, or hydronephrosis. GI tract: Gastric varices. No small or large bowel dilation. Normal appendix. Mesentery/Peritoneum: No ascites, mass, or free air. Retroperitoneum: No mass. Atherosclerotic abdominal aortic and/or arterial calcifications. Pelvis: Pelvic organs are within normal limits. Soft Tissues: Moderate body wall edema. Bones: No acute osseous finding. Stable burst compression fractures in the lumbar spine. Stable grad e 1 anterolisthesis at L5-S1. IMPRESSION: Cirrhosis with portal hypertension. Large volume ascites. Moderate body wall edema. Reviewed, dictated and finalized at location [facility].
[2023-08-26 15:21] LABS: Alanine Aminotransferase 29 U/L (6-35); Albumin Level 3.4 g/dL (3.5-5.1); Alkaline Phosphatase 173 U/L (38-126); Anion Gap 7 mmol/L (8-16); Aspartate Amino Transferase 65 U/L (14-36); Bilirubin,Total 1.2 mg/dL (0.2-1.3); Blood Urea Nitrogen 8 mg/dL (7-17); Calcium 8.4 mg/dL (8.4-10.2); Carbon Dioxide 25 mmol/L (22-30); Chloride 107 mmol/L (98-107); Estimated CRCL calculation 63 ml/min; Estimated Glomerular Filt Rate > 60; Glucose 119 mg/dL (65-110); Potassium 3.3 mmol/L (3.4-5.0); Sodium 139 mmol/L (137-145)
[2023-08-26 15:41] LABS: Basophils Percent Auto 0.9 % (0.2-1.2); Eosinophils Absolute Auto 0.1 K/mm3 (0-0.3); Eosinophils Percent Auto 1.9 % (0-4.4); Hematocrit 39.7 % (37.0-47.0); Hemoglobin 12.7 g/dL (12.0-15.0); Immature Granulocyte Absolute 0.01 K/mm3 (0.00-0.031); Immature Granulocyte Percent A 0.2 % (0-0.5); Lymphocytes Absolute Auto 1.11 K/mm3 (0.9-3.2); Lymphocytes Percent Auto 25.9 % (18.3-44.2); Mean Corpuscular Hemoglobin 30.4 pg (26-34); Mean Platelet Volume 12.1 fl (7.4-10.4); Monocytes Absolute Auto 0.6 K/mm3 (0.1-0.6); Monocytes Percent Auto 12.8 % (2.6-8.5); Neutrophils Absolute Auto 2.5 K/mm3 (1.3-6.7); Neutrophils Percent Auto 58.3 % (45.5-73.1); Platelet Count Result 112 k/mm3 (150-375); Red Blood Count 4.18 M/mm3 (4.2-5.4); Red Cell Distribution Width 15.8 % (11.5-14.5); White Blood Count 4.3 K/mm3 (4.5-10.0)
[2023-08-26] MEDS: POTASSIUM CHLORIDE 20 MEQ ER TABLET 40 MEQ PO (17:28)
--- NOTE | 2023-08-26 18:16 | ECG_ITS ---
Measurements Intervals [place] Rate: 65 P: 25 CA: 172 QRS: 27 QRSD: 81 T: -6 QT: 424 QTc: 443 Interpretive Statements SINUS RHYTHM LOW QRS VOLTAGE IN PRECORDIAL LEADS [QRS DEFLECTION < 1.0 mV IN CHEST LEADS] COMPARED TO ECG 07/02/2023 16:49:11 NO SIGNIFICANT CHANGES Electronically Signed On 08-26-2023 19:28:27 CDT by Shae Adair M.D.
--- NOTE | 2023-08-26 18:21 | ED.RECABL ---
HPI - Recheck/Abnormal Lab/Rx General Chief Complaint: Recheck/Abnormal Lab/Rx Stated Complaint: Low Albumin Time Seen by Provider: 08/26/23 17:13 Source: patient Mode of arrival: ambulatory Limitations: language barrier (using stratus supervisor salvage) History of Present Illness HPI narrative: This is a 68-year-old female that presents to the emergency department for lower extremity edema. Reports swelling in her abdomen, nausea and vomiting. Reports history of liver problems. Reports she has a appointment to see a GI doctor in a couple of weeks for further evaluation of this. Reports some exertional shortness of breath. Denies fever or chest pain. Related Data Home Medications Medication Instructions Recorded Confirmed multivitamin with minerals-folic See Rx Instructions .Route .COMPLEX 07/02/23 07/02/23 acid 0.4 mg tablet propranolol 10 mg tablet 10 mg PO DAILY 07/02/23 07/02/23 sitagliptin phosphate 50 mg tablet 50 mg PO DAILY 07/02/23 07/02/23 (Januvia) Allergies Allergy/AdvReac Type Severity Reaction Status Date / Time Penicillins Allergy Unknown Verified 08/26/23 16:57 Review of Systems Review of Systems: CONSTITUTIONAL: Denies fever CARDIOVASCULAR: Reports edema. Denies chest pain RESPIRATORY: Reports dyspnea. GASTROINTESTINAL: Reports abdominal pain, nausea, vomiting MUSCULOSKELETAL: Reports back pain, joint pain, and myalgia. All systems reviewed & are unremarkable except as noted in HPI and below PMFSH Past Medical History Medical History Cirrhosis Diabetes mellitus Hypertension Vertigo Surgical History Surgical History No pertinent past surgical history Family History Family History Mother Asthma Social History Social History Smoking status: Never smoker Second hand tobacco smoke exposure: No Alcohol intake: never Substance use: never Substance use type: does not use Lack of Transportation: No Lack of Food: Never True Current Housing: I Have Housing Concerned About Future Housing: No Difficulty Paying Gas/Electric Bills: No Difficulty Paying for Meds: No Currently Unemployed: No Education: Decline to Answer Difficulty w/ Childcare or Family Care: No Spiritual care concerns: No Exam Narrative: GENERAL: Well-appearing, well-nourished, and in no acute distress. HEAD: Normocephalic, atraumatic. EYES: EOMI. ENT: Nares clear, no rhinorrhea or epistaxis. Mucous membranes moist. Oropharynx without tonsillar hypertrophy exudate or other lesions. CHEST: Clear to auscultation. No respiratory distress. No wheezes rales or rhonchi HEART: Regular rate and rhythm. No murmur heard. Normal peripheral pulses. ABDOMEN: Soft, nondistended, normal active bowel sounds. Tender to palpation throughout the abdomen, without guarding EXTREMITIES: Normal range of motion. No edema. SKIN: Warm, dry, no rash. NEURO: No focal deficits. Alert and oriented x3. PSYCH: Normal mood and affect Course Course Emergency Course: Patient and family updated on work-up. Given option of admission for further evaluation and management versus follow-up outpatient. Patient would like to be discharged and follow-up outpatient as planned Consultations Consultation #1: Spoke with Dr. Sheffield about patient and workup. Patient can be given option of further inpatient management versus follow up outpatient. She does need to be re-started on a diuretic to help with her symptoms Date: 08/26/23 Vital Signs Vital signs: Vital Signs Temperature 98.0 F 08/26/23 14:51 Pulse Rate 71 08/26/23 14:51 Respiratory Rate 16 08/26/23 14:51 Blood Pressure 137/73 08/26/23 14:51 Pulse Oximetry 99 08/26/23 14:51 Oxygen Delivery Room Air 08/26/23 14:51 Temperature
[2023-08-26 18:50] LABS: INR 1.3; Prothrombin Time 16.8 Seconds (11.1-14.7)
[2023-08-26 18:51] LABS: Partial Thromboplastin Time 34.6 SECONDS (22.3-36.8)
[2023-08-26 19:02] LABS: NT Pro B Type Natriuretic Pept 91 pg/mL (19.9-100); Troponin I < 0.012 ng/mL (0.000-0.034)
== END 2023-08-26 22:29 | disposition home or self-care (01) ==
PROVIDERS: Student in an Organized Health Care Education/Training Program; Emergency Provider Physician Assistant; PCP Family Medicine
DX: K74.60 Unspecified cirrhosis of liver (principal); R18.8 Other ascites; E87.6 Hypokalemia; E11.9 Type 2 diabetes mellitus without complications; I10 Essential (primary) hypertension; K76.6 Portal hypertension; Z79.84 Long term (current) use of oral hypoglycemic drugs
CPT/HCPCS: 36415; 71046; 74177; 80053; 83735; 83880; 84484; 85025; 85610; 85730; 93005; 99284; A9270; Q9967

== ENCOUNTER 2023-09-24 11:36 | Outpatient (CLI) | payer MEDICAID, SELFPAY ==
--- NOTE | ~2023-09-24 | US_ITS ---
EXAMINATION: US abdomen limited DATE: 09/24/2023 13:02 INDICATION: Unspecified cirrhosis of liver. TECHNIQUE: Multiple grayscale ultrasound images of the abdomen were obtained. COMPARISON: CT abdomen and pelvis 08/26/23 FINDINGS: A survey of the abdomen demonstrates ascites. IMPRESSION: 1. No ascites. Reviewed, dictated and finalized at location [facility]. IMPRESSION: 1. No ascites.
[2023-09-24 11:56] LABS: Hematocrit 42.2 % (37.0-47.0); Hemoglobin 13.7 g/dL (12.0-15.0); Immature Platelet Fraction Pct 17.2 % (0.9-11.2); Mean Corpuscular HGB Conc 32.5 g/dl (32-36); Mean Corpuscular Hemoglobin 30.4 pg (26-34); Mean Corpuscular Volume 93.8 fl (80-100); Mean Platelet Volume 12.8 fl (7.4-10.4); Platelet Count Result 67 k/mm3 (150-375); Red Cell Distribution Width 13.9 % (11.5-14.5); White Blood Count 5.8 K/mm3 (4.5-10.0)
[2023-09-24 12:09] LABS: INR 1.2; Prothrombin Time 15.7 Seconds (11.1-14.7)
== END 2023-09-24 11:37 | disposition home or self-care (01) ==
PROVIDERS: Nurse Practitioner; PCP Family Medicine; Visit Provider Internal Medicine Gastroenterology
DX: K74.60 Unspecified cirrhosis of liver (principal)
CPT/HCPCS: 36415; 76705; 85027; 85055; 85610

== ENCOUNTER 2023-10-07 00:50 | Day surgery (SDC) | payer MEDICAID, SELFPAY ==
[2023-09-24 10:14] VITALS: BMI 26.4
--- NOTE | 2023-10-05 11:14 | SUR.PREOP ---
Patient called regarding upcoming procedure. Message left on patient's voicemail regarding preop instructions, appointment times, and procedure prep.
[2023-10-07 10:15] VITALS: BP 116/67; PULSE 97; RESP 18; TEMP 36.2; O2SAT 97; BMI 22.2
[2023-10-07 10:34] LABS: Glucose Point of Care 103 mg/dl (65-105)
[2023-10-07] MEDS: LACTATED RINGERS 1,000 ML 150 ML IV CONT (11:01)
--- NOTE | 2023-10-07 11:10 | PM.HPGS ---
History of Present Illness History of Present Illness Consent: Risks, benefits, and alternatives have been discussed and questions answered. Patient agrees to proceed with procedure. 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 Last ultrasound without ascites and she is on diuretics doing better. Never had colonoscopy Review of Systems Constitutional: Constitutional: Denies headache(s) and Denies weakness Eyes: Eyes: Denies blurry vision ENT: Reports Normal hearing present, Denies headache(s) and Denies neck pain Cardiovascular: Cardiovascular: Denies chest pain and Denies dyspnea Respiratory: Respiratory: Denies dyspnea Gastrointestinal: Gastrointestinal: Reports no additional gastrointestinal complaints Genitourinary: Genitourinary: Denies dysuria Musculoskeletal: Musculoskeletal: Denies neck pain Integumentary/Breasts: Skin/Breast: Denies dry skin Neurologic: Reports Normal hearing present, Denies headache(s) and Denies weakness Psychiatric: Psychiatric: Denies anxiety Endocrine: Endocrine: Denies change in body appearance Hematologic/Lymphatic: Hematologic/Lymphatic: Denies easy bleeding Allergic/Immunologic: Allergic/Immunologic: Denies urticaria PMFSH Past Medical History Medical History Ascites Cirrhosis Colon cancer screening Diabetes mellitus Esophageal varices Hypertension Vertigo Surgical History Surgical History No pertinent past surgical history Family History Family History Mother Asthma Social History Social History Smoking status: Never smoker Second hand tobacco smoke exposure: No Alcohol intake: never Substance use: never Substance use type: does not use Lack of Transportation: No Lack of Food: Never True Current Housing: I Have Housing Concerned About Future Housing: No Difficulty Paying Gas/Electric Bills: No Difficulty Paying for Meds: No Currently Unemployed: No Education: Decline to Answer Difficulty w/ Childcare or Family Care: No Living arrangements: with family Spiritual care concerns: No Meds Home Medications and Allergies Home Medications Medication Instructions Recorded Confirmed Type multivitamin with minerals-folic See Rx Instructions .Route .COMPLEX 07/02/23 10/05/23 History acid 0.4 mg tablet propranolol 10 mg tablet 10 mg PO DAILY 07/02/23 10/05/23 History sitagliptin phosphate 50 mg tablet 50 mg PO DAILY 07/02/23 10/05/23 History (Januvia) potassium chloride 20 mEq/15 mL 20 meq PO DAILY 09/03/23 10/05/23 History oral liquid spironolactone 25 mg tablet 25 mg PO DAILY #30 tabs 09/03/23 10/05/23 Rx (Aldactone) Allergies Allergy/AdvReac Type Severity Reaction Status Date / Time Penicillins Allergy Unknown Verified 10/05/23 10:23 Vital Signs Vital Signs - 24 hr 10/07/23 10:15 Temperature 97.1 F L Pulse Rate 97 Respiratory Rate 18 Blood Pressure 116/67 Pulse Oximetry 97 Oxygen Delivery Room Air Exam Const: General: comfortable and no acute distress HENMT: Face/Nose/Sinus: Normal nares present Eyes: General: appearance normal, both eyes and all related structures Neck: Neck: no JVD Resp: Auscultation: clear to auscultation bilaterally Cardio: Rate: regular rate Rhythm: regular rhythm GI: Inspection: non-distended GI Palp: Yes Soft to palpation Skin: General skin exam: normal color Neuro: General: gait normal Speech: normal speech Extrem: General: normal to inspection Psych: Mental Status: mental status grossly normal Assessme
--- NOTE | 2023-10-07 11:12 | WPDANESEPPF ---
Anes - Initial Pre Proc Eval Procedure: Operation Date: 10/07/23 11:15 Proposed Procedures p Esophagogastroduodenoscopy & Screening Colonoscopy - Gary Sheffield MD Date/Time: 10/07/23 11:12 Surgeon: Gary Sheffield MD Pre Op Diagnosis: Unspecified cirrhosis of liver,neoplasm screening Patient Data Age: 68 Gender: F Height: 1.52 m Weight: 51.7 kg Last Vital Signs Temp 97.1 F L 10/07/23 10:15 Pulse 97 10/07/23 10:15 Resp 18 10/07/23 10:15 BP 116/67 10/07/23 10:15 Pulse Ox 97 10/07/23 10:15 O2 Del Method Room Air 10/07/23 10:15 Allergies Allergy/AdvReac Type Severity Reaction Status Date / Time Penicillins Allergy Unknown Verified 10/05/23 10:23 Home Medications Medication Instructions Recorded Confirmed Type multivitamin with minerals-folic See Rx Instructions .Route .COMPLEX 07/02/23 10/05/23 History acid 0.4 mg tablet propranolol 10 mg tablet 10 mg PO DAILY 07/02/23 10/05/23 History sitagliptin phosphate 50 mg tablet 50 mg PO DAILY 07/02/23 10/05/23 History (Januvia) potassium chloride 20 mEq/15 mL 20 meq PO DAILY 09/03/23 10/05/23 History oral liquid spironolactone 25 mg tablet 25 mg PO DAILY #30 tabs 09/03/23 10/05/23 Rx (Aldactone) Laboratory Tests 10/07/23 10:32 POC Capillary Glucose 103 mg/dl (65-105) Patient hx anesthesia problems: none Family hx anesthesia problems: none Results Review: All pre-operative results and documents have been reviewed as part of the pre-operative evaluation. [facility] Past Medical History Medical History Ascites Cirrhosis Colon cancer screening Diabetes mellitus Esophageal varices Hypertension Vertigo Surgical History Surgical History No pertinent past surgical history Family History Family History Mother Asthma Social History Social History Smoking status: Never smoker Second hand tobacco smoke exposure: No Alcohol intake: never Substance use: never Substance use type: does not use Lack of Transportation: No Lack of Food: Never True Current Housing: I Have Housing Concerned About Future Housing: No Difficulty Paying Gas/Electric Bills: No Difficulty Paying for Meds: No Currently Unemployed: No Education: Decline to Answer Difficulty w/ Childcare or Family Care: No Living arrangements: with family Spiritual care concerns: No Anes - Eval Final PreProcedure Day of Procedure 10/07/23 11:12 Patient weight: normal Heart: regular rate and rhythm Lungs: clear to auscultation Airway: Mallampati scale class II Neurological: alert and oriented Last oral intake: >/= 8 hours ASA classification: III Emergent: no Anesthetic plan: proceed Anesthesia type and monitoring: general GIVS and standard monitoring Results Review: All pre-operative results and documents have been reviewed as part of the pre-operative evaluation. Informed Consent: The patient's anesthetic plan and its attendant risks and benefits were discussed with the patient/family/POA. Questions were solicited and answers provided to the satisfaction of the patient/family/POA.
[2023-10-07 11:39] VITALS: BP 97/50; PULSE 68; RESP 22; O2SAT 100
--- NOTE | 2023-10-07 11:44 | SUR.OPER ---
EGD started at 1119 and ended at 1121. Colonoscopy started at 1125 and ended at 1133.
[2023-10-07 11:49] VITALS: BP 108/50; PULSE 66; RESP 18; O2SAT 100
[2023-10-07 11:59] VITALS: BP 116/54; PULSE 66; RESP 18; O2SAT 100
== END 2023-10-07 12:09 | disposition home or self-care (01) ==
PROVIDERS: PCP Family Medicine; Visit Provider Internal Medicine Gastroenterology
PROC: 0DJ08ZZ Inspection of Upper Intestinal Tract, Via Natural or Artificial Opening Endoscopic (ICD-10-PCS; CPT 43235; principal; 2023-10-07 11:15)
DX: Z12.11 Encounter for screening for malignant neoplasm of colon (principal); D12.4 Benign neoplasm of descending colon; K64.8 Other hemorrhoids; K74.60 Unspecified cirrhosis of liver; I85.10 Secondary esophageal varices without bleeding; R18.8 Other ascites; K29.70 Gastritis, unspecified, without bleeding; I10 Essential (primary) hypertension; E11.9 Type 2 diabetes mellitus without complications; Z79.84 Long term (current) use of oral hypoglycemic drugs
CPT/HCPCS: 45385; 43235; 82948; 88305; J2371; J2704; J7120

== ENCOUNTER 2023-12-25 09:12 | Outpatient (CLI) | payer MEDICAID, SELFPAY ==
[2023-12-25 10:34] LABS: Basophils Percent Auto 0.9 % (0.2-1.2); Eosinophils Percent Auto 0.6 % (0-4.4); Hematocrit 42.1 % (37.0-47.0); Hemoglobin 13.7 g/dL (12.0-15.0); Immature Granulocyte Absolute 0.01 K/mm3 (0.00-0.031); Immature Granulocyte Percent A 0.3 % (0-0.5); Immature Platelet Fraction Pct 13.3 % (0.9-11.2); Lymphocytes Absolute Auto 1.05 K/mm3 (0.9-3.2); Lymphocytes Percent Auto 30.3 % (18.3-44.2); Mean Corpuscular HGB Conc 32.5 g/dl (32-36); Mean Corpuscular Volume 95.2 fl (80-100); Mean Platelet Volume 12.2 fl (7.4-10.4); Monocytes Absolute Auto 0.3 K/mm3 (0.1-0.6); Monocytes Percent Auto 9.8 % (2.6-8.5); Neutrophils Percent Auto 58.1 % (45.5-73.1); Platelet Count Result 65 k/mm3 (150-375); Red Blood Count 4.42 M/mm3 (4.2-5.4); Red Cell Distribution Width 15.1 % (11.5-14.5); White Blood Count 3.5 K/mm3 (4.5-10.0)
[2023-12-25 10:49] LABS: Hypochromasia 1+ (NORMAL); Large Platelets Present; Platelet Estimate Decreased (Adequate); Schistocytes None Seen (NORMAL)
[2023-12-25 11:10] LABS: Creatinine Urine 88.7 mg/dL
[2023-12-25 11:18] LABS: MALB Creatinine Ratio 13.6 mg/g (0-30); Microalbumin Urine Random 12.1 mg/L (0-16.7)
[2023-12-25 11:19] LABS: Free T4 Free Thyroxine 1.05 ng/mL (0.78-2.19); Vitamin D 25 Hydroxy 45.8 ng/mL
[2023-12-25 12:31] LABS: Alanine Aminotransferase 30 U/L (6-35); Albumin Level 3.7 g/dL (3.5-5.1); Alkaline Phosphatase 245 U/L (38-126); Anion Gap 7 mmol/L (8-16); Aspartate Amino Transferase 68 U/L (14-36); Bilirubin,Total 1.6 mg/dL (0.2-1.3); Blood Urea Nitrogen 16 mg/dL (7-17); Carbon Dioxide 27 mmol/L (22-30); Chloride 105 mmol/L (98-107); Cholesterol 207 mg/dL (0-200); Estimated Glomerular Filt Rate > 60; Glucose 120 mg/dL (65-110); HDL Direct 52 mg/dL; Potassium 3.8 mmol/L (3.4-5.0); Sodium 139 mmol/L (137-145); Triglycerides 143 mg/dL (<150)
[2023-12-25 12:42] LABS: LDL Cholesterol Direct 113 mg/dL
[2023-12-25 13:00] LABS: Total Triiodothyronine (T3) 1.29 NG/ML (0.97-1.69)
[2023-12-25 21:29] LABS: Hemoglobin A1C 6.5 % (<5.7)
== END 2023-12-25 09:13 | disposition home or self-care (01) ==
PROVIDERS: PCP Family Medicine; Visit Provider Family Medicine
DX: E55.9 Vitamin D deficiency, unspecified (principal); M62.81 Muscle weakness (generalized); I10 Essential (primary) hypertension; E78.5 Hyperlipidemia, unspecified; E11.9 Type 2 diabetes mellitus without complications; D64.9 Anemia, unspecified
CPT/HCPCS: 36415; 80053; 80061; 82043; 82306; 83036; 84439; 84443; 84480; 85025; 85055

== ENCOUNTER 2024-08-12 17:28 | Inpatient (IN) | payer SELFPAY ==
--- NOTE | ~2024-08-12 | US_ITS ---
EXAMINATION: US abdomen complete DATE: 08/14/2024 08:05 INDICATION: Anemia. Cirrhosis. TECHNIQUE: Multiple grayscale and Doppler ultrasound images of the abdomen were obtained. COMPARISON: CT abdomen and pelvis 08/26/2023 FINDINGS: The visualized portions of the head and body of the pancreas are normal. The liver demonstr ates coarsened echotexture and surface nodularity, consistent with cirrhosis. There is normal flow in main portal vein. The gallbladder is normal in size. No gallstones or gallbladder wall thickening. T here is comet tail artifact in the gallbladder wall, consistent with adenomyomatosis. There is no son ographic Vazquez sign. The common duct is normal and measures 2 mm. There is a small volume of ascites . Right kidney measures 9.6 x 4.4 x 4.7 cm. Left kidney measures 8.8 x 4.2 x 5.6 cm. Abdominal aorta is normal in caliber. Inferior vena cava is normal. The spleen is normal in size. IMPRESSION: 1. Cirrhosis of the liver. 2. Small volume of ascites. Reviewed, dictated and finalized at location A.
[2024-08-12 17:45] VITALS: BP 106/41; PULSE 85; RESP 17; TEMP 36.7; O2SAT 97
[2024-08-12 19:16] VITALS: RESP 18; O2SAT 100
[2024-08-12 19:23] LABS: Basophils Absolute Auto 0.1 K/mm3 (0.0-0.1); Basophils Percent Auto 0.9 % (0.2-1.2); Eosinophils Absolute Auto 0.1 K/mm3 (0-0.3); Eosinophils Percent Auto 1.1 % (0-4.4); Hematocrit 22.8 % (37.0-47.0); Immature Granulocyte Absolute 0.02 K/mm3 (0.00-0.031); Immature Granulocyte Percent A 0.4 % (0-0.5); Immature Platelet Fraction Pct 10.4 % (0.9-11.2); Lymphocytes Percent Auto 22.6 % (18.3-44.2); Mean Corpuscular HGB Conc 28.9 g/dl (32-36); Mean Corpuscular Hemoglobin 22.1 pg (26-34); Mean Corpuscular Volume 76.5 fl (80-100); Monocytes Absolute Auto 0.5 K/mm3 (0.1-0.6); Monocytes Percent Auto 9.4 % (2.6-8.5); Neutrophils Absolute Auto 3.5 K/mm3 (1.3-6.7); Neutrophils Percent Auto 65.6 % (45.5-73.1); Nucleated Red Blood Cells Perc 0.4 % (0.0-0.2); Platelet Count Result 124 k/mm3 (150-375); Red Blood Count 2.98 M/mm3 (4.2-5.4); Red Cell Distribution Width 20.9 % (11.5-14.5); White Blood Count 5.3 K/mm3 (4.5-10.0)
[2024-08-12 19:28] LABS: Hemoglobin 6.6 g/dL (12.0-15.0)
[2024-08-12 19:39] LABS: Alanine Aminotransferase 21 U/L (6-35); Albumin Level 3.4 g/dL (3.5-5.1); Alkaline Phosphatase 176 U/L (38-126); Anion Gap 7 mmol/L (4-12); Aspartate Amino Transferase 38 U/L (14-36); Bilirubin,Total 0.7 mg/dL (0.2-1.3); Blood Urea Nitrogen 11 mg/dL (7-17); Calcium 9.2 mg/dL (8.4-10.2); Carbon Dioxide 27 mmol/L (22-30); Chloride 99 mmol/L (98-107); Estimated Glomerular Filt Rate > 60; Glucose 168 mg/dL (65-110); Potassium 3.6 mmol/L (3.4-5.0); Sodium 133 mmol/L (137-145)
[2024-08-12 19:49] LABS: Platelet Estimate Decreased (Adequate); Schistocytes None Seen
[2024-08-12 19:50] LABS: Anisocytosis 2+; Hypochromasia 1+
[2024-08-12 20:05] VITALS: BP 93/57; PULSE 84; RESP 18; O2SAT 99
--- NOTE | 2024-08-12 20:06 | ED.GENADULT ---
HPI - General Adult General Chief complaint: Recheck/Abnormal Lab/Rx Stated complaint: low H&H Time Seen by Provider: 08/12/24 19:08 History of Present Illness HPI narrative: Patient is a 69-year-old female who presents to the emergency department this evening accompanied by her daughter due to concern for low hemoglobin. Patient was informed by her primary care physician that her hemoglobin was was recently checked was 7.2 and that she needs to come to the emergency department for further evaluation. Patient is a Estonian-speaking and daughter who is present at bedside is translating. Patient states that she she has noticed that her stools have been slightly darker describing them as a dark brown color, denies any tarry melanotic stools and denies any hematochezia. Patient also denies any nausea or vomiting including any hematemesis. Patient has seen our GI doctor, Dr. Lindo approximately 1 year ago for colonoscopy. Does have a history of cirrhosis. Daughter denies any previous history of GI bleed or anemia requiring blood transfusions in the past. Patient is currently denying any chest pain or shortness of breath, denies any abdominal pain. Denies any recent changes to her diet. No additional symptoms or concerns at this Related Data Home Medications Medication Instructions Recorded Confirmed multivitamin with minerals-folic See Rx Instructions .Route .COMPLEX 07/02/23 10/05/23 acid 0.4 mg tablet propranolol 10 mg tablet 10 mg PO DAILY 07/02/23 10/05/23 sitagliptin phosphate 50 mg tablet 50 mg PO DAILY 07/02/23 10/05/23 (Januvia) potassium chloride 20 mEq/15 mL 20 meq PO DAILY 09/03/23 10/05/23 oral liquid Allergies Allergy/AdvReac Type Severity Reaction Status Date / Time Penicillins Allergy Unknown Verified 08/12/24 17:32 Review of Systems Review of Systems: All systems are reviewed and are negative unless stated otherwise in the HPI. [facility] Past Medical History Medical History Ascites Cirrhosis Colon cancer screening Diabetes mellitus Esophageal varices Hypertension Vertigo Surgical History Surgical History No pertinent past surgical history Family History Family History Mother Asthma Social History Social History Smoking status: Never smoker Second hand tobacco smoke exposure: No Alcohol intake: never Substance use: never Substance use type: does not use Lack of Transportation: No Lack of Food: Never True Current Housing: I Have Housing Concerned About Future Housing: No Difficulty Paying Gas/Electric Bills: No Difficulty Paying for Meds: No Currently Unemployed: No Education: Decline to Answer Difficulty w/ Childcare or Family Care: No Living arrangements: with family Spiritual care concerns: No Exam Narrative: General: Alert, awake, afebrile, in no acute distress. HEENT: PERRL, no rhinorrhea, no post nasal drip, oropharynx clear. Cardiovascular: Regular rate and rhythm, no murmurs, rubs or gallops, no peripheral edema. Respiratory: Clear to auscultation bilaterally, no tachypnea, no wheezing, no rhonchi, no rubs, no respiratory distress. Abdomen: Soft, nontender, nondistended, no rebound, no guarding, no peritoneal signs. Rectal: Exam performed with the presence of female nurse caretaker resort revealing good rectal tone, FOBT positive, stools medium brown in color. Musculoskeletal: No joint swelling or deformity, normal muscle tone. Skin: No rashes or petechia, no signs of infection. Neurological: Alert and oriented to person, place, and time. Follows all commands. No focal deficits, speech is clear and fluent. Course Vital Signs Vital signs: Vital Signs Temperature 98.0 F 08/12/24 17:45 Pulse Rate 85 08/12/24 1
--- NOTE | 2024-08-12 20:39 | PM.IMHP ---
H&P: HPI History of Present Illness Date/Time: 08/12/24 20:39 Chief Complaint: Dizziness Narrative: This is a 69-year-old female with past medical history significant for hypertension, diabetes, hepatic cirrhosis, esophageal varices. patient was brought to the emergency room after lab work returned abnormal for hemoglobin of 6.7 patient had been complaining of dizziness, fatigue, pallor. Repeat lab work in the emergency room shows a hemoglobin of 6.6, hematocrit 22 MCV 76. Patient has received 1 unit of packed red blood cells in the emergency room. Patient has been placed in observation for further evaluation management and treatment. Review of Systems Review of Systems: dizziness PMFSH Past Medical History Medical History (Updated 08/13/24 @ 14:21 by Gary Sheffield MD) Ascites Cirrhosis Colon cancer screening Diabetes mellitus Esophageal varices Hypertension Thrombocytopenia Vertigo Surgical History Surgical History No pertinent past surgical history Family History Family History Mother Asthma Social History Social History Smoking status: Never smoker Second hand tobacco smoke exposure: No Alcohol intake: never Substance use: never Substance use type: does not use Do You Feel Safe in your Home?: Yes Lack of Transportation: No Lack of Food: Never True Current Housing: I Have Housing Concerned About Future Housing: No Difficulty Paying Gas/Electric Bills: No Difficulty Paying for Meds: No Currently Unemployed: No Education: Don't Know Difficulty w/ Childcare or Family Care: No Living arrangements: with family Spiritual care concerns: No Meds Home Medications and Allergies Home Medications Medication Instructions Recorded Confirmed Type propranolol 10 mg tablet 10 mg PO BID 07/02/23 08/12/24 History spironolactone 25 mg tablet 25 mg PO DAILY #30 tabs 03/09/24 08/12/24 Rx (Aldactone) chlorthalidone 50 mg tablet 50 mg PO DAILY 08/12/24 08/12/24 History metformin 500 mg tablet 500 mg PO BID 08/12/24 08/12/24 History Allergies Allergy/AdvReac Type Severity Reaction Status Date / Time Penicillins Allergy Unknown Verified 08/12/24 17:32 Vital Signs Vital Signs - 24 hr 08/12/24 17:45 08/12/24 19:16 08/12/24 20:05 Temperature 98.0 F Pulse Rate 85 84 Respiratory Rate 17 18 18 Blood Pressure 106/41 L 93/57 L Pulse Oximetry 97 100 99 Exam Narrative: Mucosa is pale Const: General: comfortable, no acute distress, well developed, alert, awake and average body habitus Nutritional Appearance: average body habitus Orientation/consciousness: patient oriented x3 HENMT: Head: normal to inspection, normocephalic and atraumatic Ears: hearing grossly normal bilaterally Face/Nose/Sinus: normal facial exam Face and sinus: normal facial exam Eyes: General: appearance normal, both eyes and all related structures Pupils: Equal, round and reactive pupils present EOM: EOMs intact bilaterally Neck: Neck: full ROM, no lymphadenopathy and no JVD Thyroid: thyroid normal Lymphatic: no lymphadenopathy noted Resp: Effort & Inspection: normal respiratory effort and able to speak in complete sentences Auscultation: clear to auscultation bilaterally Cardio: Jugular venous distension: no JVD Rate: regular rate Rhythm: regular rhythm Heart sounds: S1 normal heart sound present and S2 normal heart sound present GI: GI Palp: Yes Soft to palpation and Yes No hepatosplenomegaly present : General: Yes deferred Skin: Rashes: no rashes Wounds: no wounds Neuro: General: patient oriented x3 and CN's II-XI intact bilaterally Cranial nerves: Yes CN's II-XII intact bilaterally and Yes Equal, round and reactive pupils present Cognition (Neuro): normal cognition Speech: norm
[2024-08-12 21:15] VITALS: BP 126/53; PULSE 86; RESP 20; TEMP 36.3; O2SAT 99
[2024-08-12] MEDS: SODIUM CHLORIDE 0.9% IV 250 ML 30 ML IV CONT (21:18)
[2024-08-12] MEDS: TUBING, BLOOD SET 1 EACH XX (21:18)
[2024-08-12 21:20] LABS: Iron 18 ug/dL (37-170)
[2024-08-12 21:30] LABS: Percent Iron Saturation 4 % (20-50)
[2024-08-12 21:32] VITALS: BP 124/53; PULSE 75; RESP 21; TEMP 36.4; O2SAT 100
[2024-08-12 21:51] VITALS: BMI 25.5
[2024-08-12 22:00] VITALS: BP 122/48; PULSE 80; RESP 18; TEMP 36.1; O2SAT 100
[2024-08-12 22:35] LABS: Transferrin 322 mg/dL (206-381)
[2024-08-12 22:39] LABS: Folic Acid > 20.0 ng/mL (2.76->20)
[2024-08-13] VITALS (11 sets, daily range): BP systolic 109–118; BP diastolic 47–62; PULSE 67–95; RESP 13–20; TEMP 36.8–37; O2SAT 96–97
--- NOTE | 2024-08-13 07:38 | PM.IMPN ---
Progress Note: A&P Assessment and Plan (1) Microcytic hypochromic anemia: Code(s): D50.9 - Iron deficiency anemia, unspecified Status: Acute Assessment and Plan: Patient reports to the ED with complaints of dizziness, fatigue, pallor, Hemoglobin 6.6 g/dl on admission. Hemoglobin in 12/2023 was 13.7 g/dl s/p 1 unit pRBC, awaiting CBC repeat Iron 15, TIBC 450, 4%, Transferrin 322, Ferritin 7.80. Vitamin B12 and folate are normal IV Venofer 300 mg x 2 doses ordered LDH, haptoglobin, and Reticulocyte pending GI consulted, recs appreciated (2) Hypertension: Code(s): I10 - Essential (primary) hypertension Status: Acute Assessment and Plan: Blood pressures on arrival were low (93/57, HR 84). Typically takes Chlorthalidone 50 mg daily, spironolactone 25 mg daily, and propranolol 10 mg BID hold home anti-hypertensives for now monitor BP (3) Diabetes mellitus: Code(s): E11.9 - Type 2 diabetes mellitus without complications Status: Acute Assessment and Plan: Takes Metformin 500 PO BID at home. Q6 accu checks while NPO SSI low dose Q 6 hours, Hypoglycemia protocol May start D5 NS if she has to remain NPO for today Subjective Date/time seen: 08/13/24 07:38 Interval history: No acute events overnight. The patient is Tamaz[place] speaking only and her daughter speaks some Mongolian. Exam was completed with use of the uniform designer. Patient and daughter provided the following history. About 1 month ago her customer support advisor had her complete some blood work which showed that she had iron deficiency. Two Fridays ago they had repeat blood work drawn and were called by her laboratory technical specialist and instructed to go to the hospital due to low hemoglobin. The patient reports she has symptoms of nausea, dizziness, and fatigue. She denies hematochezia, melena, hematemesis or coffee ground emesis. She is hungry and is wanting to eat. Her last EGD and colonoscopy were completed 1 year ago with findings of polyp, internal hemorrhoids, nonbleeding esophageal varices, and gastritis. Review of Systems Review of Systems: dizziness, fatigue, and nausea Exam Narrative: General: appears comfortable, in no acute distress Respiratory: breathing is unlabored with even chest rise/fall, lungs are clear without wheezing, rhonchi, and crackles Cardiovascular: Rate and rhythm regular, normal s1s2, no murmur Abdomen: Soft, round, non-tender, active bowel sounds Extremities: No cyanosis, edema, clubbing. Pulses 2/2 Neuro: A&O x 4 Skin: Warm, dry, intact Objective Data Vital Signs Vital Signs: Vital Signs - 24 hr 08/12/24 17:45 08/12/24 19:16 08/12/24 20:05 Temperature 98.0 F Pulse Rate 85 84 Respiratory Rate 17 18 18 Blood Pressure 106/41 L 93/57 L Pulse Oximetry 97 100 99 Oxygen Delivery 08/12/24 21:15 08/12/24 21:32 08/12/24 22:12 Temperature 97.4 F L 97.6 F Pulse Rate 86 75 Respiratory Rate 20 21 H Blood Pressure 126/53 L 124/53 L Pulse Oximetry 99 100 Oxygen Delivery Room Air 08/12/24 22:00 08/12/24 22:00 08/13/24 00:00 Temperature 96.9 F L 96.9 F L Pulse Rate 80 80 74 Respiratory Rate 18 18 Blood Pressure 122/48 L 122/48 L Pulse Oximetry 100 100 Oxygen Delivery 08/13/24 04:00 08/13/24 06:00 Temperature 98.2 F Pulse Rate 75 67 Respiratory Rate 20 Blood Pressure 118/62 Pulse Oximetry 97 Oxygen Delivery Intake/Output Intake/Output: Intake & Output 08/10/24 08/11/24 08/12/24 08/13/24 23:59 23:59 23:59 23:59 Intake Total 350 0 Balance 350 0 Labs Labs: Laboratory Results - last 24 hr 08/12/24 19:16 WBC 5.3 RBC 2.98 L Hgb 6.6 L* D Hct 22.8 L MCV 76.5 L MCH 22.1 L MCHC 28.9 L RDW 20.9 H Plt Count 124 L D MPV TNP Immature Gran % (Auto) 0.4 Neut % (Auto) 65.6 Lymph % (Auto) 22.6 [place] % (Auto) 9.4 H Eos % (Auto) 1.1 Baso % (Auto) 0.9 Lymph # (Auto) 1.20 [place]
[2024-08-13 08:04] LABS: Glucose Point of Care 141 mg/dl (65-105)
[2024-08-13 08:23] LABS: Hemoglobin 8.3 g/dL (12.0-15.0); Immature Granulocyte Absolute 0.01 K/mm3 (0.00-0.031); Immature Granulocyte Percent A 0.3 % (0-0.5); Immature Platelet Fraction Pct 8.7 % (0.9-11.2); Immature Reticulocyte Fraction 28.4 % (3.0-15.9); Lymphocytes Absolute Auto 0.92 K/mm3 (0.9-3.2); Lymphocytes Percent Auto 23.4 % (18.3-44.2); Mean Corpuscular HGB Conc 30.7 g/dl (32-36); Mean Corpuscular Hemoglobin 23.9 pg (26-34); Mean Corpuscular Volume 77.6 fl (80-100); Mean Platelet Volume 11.9 fl (7.4-10.4); Monocytes Absolute Auto 0.4 K/mm3 (0.1-0.6); Monocytes Percent Auto 9.7 % (2.6-8.5); Neutrophils Absolute Auto 2.5 K/mm3 (1.3-6.7); Neutrophils Percent Auto 64.6 % (45.5-73.1); Platelet Count Result 101 k/mm3 (150-375); Red Blood Count 3.48 M/mm3 (4.2-5.4); Red Cell Distribution Width 20.3 % (11.5-14.5); Reticulocyte Percent 1.35 % (0.7-4.3); Reticulocytes Absolute 0.05 10^6/uL (0.02-0.10); White Blood Count 3.9 K/mm3 (4.5-10.0)
[2024-08-13 08:41] LABS: Alanine Aminotransferase 19 U/L (6-35); Albumin Level 2.9 g/dL (3.5-5.1); Alkaline Phosphatase 130 U/L (38-126); Anion Gap 8 mmol/L (4-12); Aspartate Amino Transferase 34 U/L (14-36); Bilirubin,Total 1.5 mg/dL (0.2-1.3); Blood Urea Nitrogen 10 mg/dL (7-17); Calcium 8.8 mg/dL (8.4-10.2); Carbon Dioxide 26 mmol/L (22-30); Chloride 101 mmol/L (98-107); Estimated Glomerular Filt Rate > 60; Glucose 135 mg/dL (65-110); Lactate Dehydrogenase 209 U/L (120-246); Potassium 3.7 mmol/L (3.4-5.0); Sodium 135 mmol/L (137-145)
[2024-08-13] MEDS: FERROUS SULFATE 325 MG TABLET DR PO (09:34)
[2024-08-13] MEDS: PANTOPRAZOLE SODIUM IV 40 MG VIAL IV PUSH ×2 (09:34→20:19)
[2024-08-13 11:59] LABS: Glucose Point of Care 150 mg/dl (65-105)
--- NOTE | 2024-08-13 14:16 | WPDGICN ---
Assessment and Plan Assessment and plan (1) Anemia due to blood loss: Code(s): D50.0 - Iron deficiency anemia secondary to blood loss (chronic) Status: Acute Assessment and Plan: no overt gib hgb responded to blood transfusion will do EGD to check size of varices and assess if needs further intervention hemodynamically stable (2) Cirrhosis of liver with ascites: Qualifiers: Hepatic cirrhosis type: unspecified hepatic cirrhosis Qualified Code(s): K74.60 - Unspecified cirrhosis of liver; R18.8 - Other ascites Code(s): K74.60 - Unspecified cirrhosis of liver; R18.8 - Other ascites Status: Inactive Assessment and Plan: repeat another ultrasound, last time with no more PVT check if ascites (3) Esophageal varices: Code(s): I85.00 - Esophageal varices without bleeding Status: Acute Assessment and Plan: on propranolol egd to assess if needs more intervention (4) Thrombocytopenia: Code(s): D69.6 - Thrombocytopenia, unspecified Status: Acute Assessment and Plan: from cirrhosis GI Consult Note Consult date/time: 08/13/24 14:16 Reason for consult: cirrhosis, acute anemia HPI: Eboni Rodriguez is a 69 year old female with known history of [place] cirrhosis and PVT (originally from [place]). CT scan 06/2022 admitted to hospital when cirrhosis was confirmed,EGD showed grade II EV, s/p banding, now on propranolol. Repeat liver imaging no PVT. Repeat EGD 09/2023 small EV no need of further intervention, colonoscoyp only small polyp. She is here with more fatigue and feeling tired, recent blood work showed new anemia and was told to come to ER. She denies melena or recent bleeding. She received blood transfusion. Review of Systems Constitutional: Constitutional: Reports fatigue and Reports lethargy Eyes: Eyes: Denies blurry vision ENT: Reports Normal hearing present Cardiovascular: Cardiovascular: Denies chest pain Respiratory: Respiratory: Reports dyspnea on exertion Gastrointestinal: Gastrointestinal: Denies abdominal pain Genitourinary: Genitourinary: Denies dysuria Musculoskeletal: Musculoskeletal: Denies neck pain Integumentary/Breasts: Skin/Breast: Denies rash Neurologic: Denies Abnormal speech present Psychiatric: Psychiatric: Denies behavioral changes [facility] Past Medical History Medical History (Updated 08/13/24 @ 14:21 by Gary Sheffield MD) Ascites Cirrhosis Colon cancer screening Diabetes mellitus Esophageal varices Hypertension Thrombocytopenia Vertigo Surgical History Surgical History No pertinent past surgical history Family History Family History Mother Asthma Social History Social History Smoking status: Never smoker Second hand tobacco smoke exposure: No Alcohol intake: never Substance use: never Substance use type: does not use Do You Feel Safe in your Home?: Yes Lack of Transportation: No Lack of Food: Never True Current Housing: I Have Housing Concerned About Future Housing: No Difficulty Paying Gas/Electric Bills: No Difficulty Paying for Meds: No Currently Unemployed: No Education: Don't Know Difficulty w/ Childcare or Family Care: No Living arrangements: with family Spiritual care concerns: No Meds Home Medications and Allergies Home Medications Medication Instructions Recorded Confirmed Type propranolol 10 mg tablet 10 mg PO BID 07/02/23 08/12/24 History spironolactone 25 mg tablet 25 mg PO DAILY #30 tabs 03/09/24 08/12/24 Rx (Aldactone) chlorthalidone 50 mg tablet 50 mg PO DAILY 08/12/24 08/12/24 History metformin 500 mg tablet 500 mg PO BID 08/12/24 08/12/24 History Allergies Allergy/AdvReac Type Severity Reaction Status Date / Time Penicillins
[2024-08-13 16:48] LABS: Glucose Point of Care 214 mg/dl (65-105)
[2024-08-13] MEDS: INSULIN ASPART (*BKC) 100 UNITS/ML SUB-Q (17:46)
[2024-08-13 20:25] LABS: Glucose Point of Care 289 mg/dl (65-105)
[2024-08-14] VITALS (10 sets, daily range): BP systolic 110–130; BP diastolic 43–59; PULSE 74–89; RESP 12–18; TEMP 36.2–36.7; O2SAT 97–99
[2024-08-14 06:28] LABS: Hematocrit 28.5 % (37.0-47.0); Hemoglobin 8.4 g/dL (12.0-15.0); Immature Platelet Fraction Pct 10.7 % (0.9-11.2); Mean Corpuscular HGB Conc 29.5 g/dl (32-36); Mean Corpuscular Hemoglobin 22.9 pg (26-34); Mean Corpuscular Volume 77.7 fl (80-100); Platelet Count Result 111 k/mm3 (150-375); Red Blood Count 3.67 M/mm3 (4.2-5.4); Red Cell Distribution Width 20.8 % (11.5-14.5); White Blood Count 4.1 K/mm3 (4.5-10.0)
[2024-08-14 06:34] LABS: Alanine Aminotransferase 20 U/L (6-35); Albumin Level 3.1 g/dL (3.5-5.1); Alkaline Phosphatase 129 U/L (38-126); Anion Gap 6 mmol/L (4-12); Aspartate Amino Transferase 39 U/L (14-36); Bilirubin,Total 1.3 mg/dL (0.2-1.3); Blood Urea Nitrogen 10 mg/dL (7-17); Calcium 8.7 mg/dL (8.4-10.2); Carbon Dioxide 27 mmol/L (22-30); Chloride 102 mmol/L (98-107); Estimated Glomerular Filt Rate > 60; Glucose 121 mg/dL (65-110); Potassium 3.7 mmol/L (3.4-5.0); Sodium 135 mmol/L (137-145)
--- NOTE | 2024-08-14 07:27 | PM.IMPN ---
Progress Note: A&P Assessment and Plan (1) Microcytic hypochromic anemia: Code(s): D50.9 - Iron deficiency anemia, unspecified Status: Acute Assessment and Plan: Patient reports to the ED with complaints of dizziness, fatigue, pallor, Hemoglobin 6.6 g/dl on admission. Hemoglobin in 12/2023 was 13.7 g/dl s/p 1 unit pRBC, awaiting CBC repeat Iron 15, TIBC 450, 4%, Transferrin 322, Ferritin 7.80. Vitamin B12 and folate are normal IV Venofer 300 mg x 2 doses ordered LDH, haptoglobin, and Reticulocyte pending NPO at midnight for EGD and US GI consulted, recs appreciated (2) Hypertension: Code(s): I10 - Essential (primary) hypertension Status: Acute Assessment and Plan: Blood pressures on arrival were low (93/57, HR 84). Typically takes Chlorthalidone 50 mg daily, spironolactone 25 mg daily, and propranolol 10 mg BID hold home anti-hypertensives for now monitor BP (3) Diabetes mellitus: Code(s): E11.9 - Type 2 diabetes mellitus without complications Status: Acute Assessment and Plan: Takes Metformin 500 PO BID at home. AC/HS accu checks SSI low dose, Hypoglycemia protocol NPO at midnight for EGD and US Subjective Date/time seen: 08/14/24 07:27 Interval history: No acute events overnight. She reports less dizziness today. She had her ultrasound completed. NPO at midnight for EGD tomorrow. Review of Systems Review of Systems: dizziness, fatigue, and nausea Exam Narrative: General: appears comfortable, in no acute distress Respiratory: breathing is unlabored with even chest rise/fall, lungs are clear without wheezing, rhonchi, and crackles Cardiovascular: Rate and rhythm regular, normal s1s2, no murmur Abdomen: Soft, round, non-tender, active bowel sounds Extremities: No cyanosis, edema, clubbing. Pulses 2/2 Neuro: A&O x 4 Skin: Warm, dry, intact Objective Data Vital Signs Vital Signs: Vital Signs - 24 hr 08/13/24 08:00 08/13/24 08:00 08/13/24 14:23 Temperature 98.6 F Pulse Rate 77 77 75 Respiratory Rate 20 16 Blood Pressure 112/53 L Pulse Oximetry 97 97 Oxygen Delivery Room Air 08/13/24 12:00 08/13/24 16:00 08/13/24 12:00 Temperature Pulse Rate 76 68 95 Respiratory Rate Blood Pressure Pulse Oximetry Oxygen Delivery 08/13/24 19:00 08/13/24 21:10 08/13/24 20:00 Temperature 98.2 F Pulse Rate 77 80 82 Respiratory Rate 13 Blood Pressure 109/47 L Pulse Oximetry 97 Oxygen Delivery 08/14/24 00:00 08/14/24 05:52 08/13/24 21:56 Temperature 97.5 F L Pulse Rate 75 78 Respiratory Rate 12 Blood Pressure 110/43 L Pulse Oximetry 97 96 Oxygen Delivery Room Air 08/14/24 04:00 Temperature Pulse Rate 77 Respiratory Rate Blood Pressure Pulse Oximetry Oxygen Delivery Intake/Output Intake/Output: Intake & Output 08/11/24 08/12/24 08/13/24 08/14/24 23:59 23:59 23:59 23:59 Intake Total 350 590 100 Balance 350 590 100 Meds/Results Medications: Active Medications Generic Name Dose Route Start Last Admin Trade Name Freq PRN Reason Stop Dose Admin Dextrose 12.5 gm 08/13/24 07:46 Dextrose 50% 25 Gm/50 Ml Syringe IV PUSH PRN PRN Hypoglycemia Protocol Ferrous Sulfate 325 mg 08/13/24 09:00 08/13/24 09:34 Ferrous Sulfate [address] PO 325 mg DAILY MAMADOU Administration Glucagon 1 mg 08/13/24 07:46 Glucagon For Inj 1 Mg Vial IM PRN PRN Hypoglycemia Protocol Glucose 15 gm 08/13/24 07:46 Glucose Oral Gel 15 Gm Of Glucse In 37.5 Gm Tube PO PRN PRN Hypoglycemia Protocol Dextrose 1,000 mls @ 100 mls/hr 08/13/24 07:46 Dextrose 5% 1,000 Ml IVPB PRN PRN Hypoglycemia Protocol Iron Sucrose 200 mg/ Iron 265 mls @ 176.667 mls/hr 08/14/24 09:00 Sucrose 100 mg/ Sodium IVPB 08/14/24 12:00 Chloride DAILY MAMADOU I
[2024-08-14 08:08] LABS: Glucose Point of Care 143 mg/dl (65-105)
[2024-08-14] MEDS: IRON SUCROSE COMPLEX 200 MG, IRON SUCROSE COMPLEX 100 MG in SODIUM CHLORIDE 0.9% IV 250 ML 176.67 MG IVPB (08:45)
[2024-08-14] MEDS: FERROUS SULFATE 325 MG TABLET DR PO (08:45)
[2024-08-14] MEDS: PANTOPRAZOLE SODIUM IV 40 MG VIAL IV PUSH ×2 (08:45→20:08)
[2024-08-14 12:01] LABS: Glucose Point of Care 296 mg/dl (65-105)
[2024-08-14] MEDS: INSULIN ASPART (*BKC) 100 UNITS/ML SUB-Q ×2 (12:13→16:26)
[2024-08-14] MEDS: CHLORTHALIDONE 25 MG TABLET 50 MG PO (13:00)
[2024-08-14] MEDS: SPIRONOLACTONE 25 MG TABLET PO (13:00)
--- NOTE | 2024-08-14 14:20 | WPDGIPROGNO ---
Progress Note: A&P Assessment and Plan (1) Anemia due to blood loss: Code(s): D50.0 - Iron deficiency anemia secondary to blood loss (chronic) Status: Acute Assessment and Plan: no overt signs of gib, hgb responded to blood transfusion egd tomorrow to assess if enlarged varices (she is on non-selective b-amairani at home, last egd did not require more banding) (2) Esophageal varices: Code(s): I85.00 - Esophageal varices without bleeding Status: Acute Assessment and Plan: assess tomorrow (3) Cirrhosis: Qualifiers: Ascites presence: with ascites Hepatic cirrhosis type: unspecified hepatic cirrhosis Qualified Code(s): K74.60 - Unspecified cirrhosis of liver; R18.8 - Other ascites Code(s): K74.60 - Unspecified cirrhosis of liver Status: Acute Assessment and Plan: nw liver ultrasound no new liver lesions, no PVT (4) Ascites: Code(s): R18.8 - Other ascites Status: Acute Assessment and Plan: only small size (5) Thrombocytopenia: Code(s): D69.6 - Thrombocytopenia, unspecified Status: Acute Assessment and Plan: from cirrhosis stable Subjective Date/time seen: 08/14/24 14:20 Interval history: no changes, had normal brown stool, no signs of bleeding and she is comfortable got iv iron Review of Systems Review of Systems: All systems reviewed & are unremarkable except as noted in HPI and below Exam Const: General: comfortable and no acute distress HENMT: Face/Nose/Sinus: Normal nares present Eyes: General: appearance normal, both eyes and all related structures Neck: Neck: supple Resp: Auscultation: clear to auscultation bilaterally Cardio: Rate: regular rate Rhythm: regular rhythm GI: Inspection: non-distended GI Palp: Yes Soft to palpation and No Tenderness to palpation present (GI) Auscultation: normal bowel sounds Skin: General skin exam: normal color Neuro: Speech: normal speech Motor exam (neuro): 5/5 motor strength present throughout Extrem: General: normal to inspection Psych: Mental Status: mental status grossly normal Objective Data Vital Signs Vital Signs: Vital Signs - 24 hr 08/13/24 14:23 08/13/24 16:00 08/13/24 19:00 Temperature 98.6 F Pulse Rate 75 68 77 Respiratory Rate 16 Blood Pressure 112/53 L Pulse Oximetry 97 Oxygen Delivery 08/13/24 21:10 08/13/24 20:00 08/14/24 00:00 Temperature 98.2 F Pulse Rate 80 82 75 Respiratory Rate 13 Blood Pressure 109/47 L Pulse Oximetry 97 Oxygen Delivery 08/14/24 05:52 08/13/24 21:56 08/14/24 04:00 Temperature 97.5 F L Pulse Rate 78 77 Respiratory Rate 12 Blood Pressure 110/43 L Pulse Oximetry 97 96 Oxygen Delivery Room Air 08/14/24 08:45 08/14/24 08:00 08/14/24 12:00 Temperature Pulse Rate 74 74 Respiratory Rate Blood Pressure Pulse Oximetry Oxygen Delivery Room Air Intake/Output Intake/Output: Intake & Output 08/11/24 08/12/24 08/13/24 08/14/24 23:59 23:59 23:59 23:59 Intake Total 350 590 365 Balance 350 590 365 Meds/Results Medications: Active Medications Generic Name Dose Route Start Last Admin Trade Name Hernandoq PRN Reason Stop Dose Admin Chlorthalidone 50 mg 08/14/24 13:00 08/14/24 13:00 Chlorthalidone 25 Mg Tablet PO 50 mg DAILY MAMADOU Administration Dextrose 12.5 gm 08/13/24 07:46 Dextrose 50% 25 Gm/50 Ml Syringe IV PUSH PRN PRN Hypoglycemia Protocol Ferrous Sulfate 325 mg 08/13/24 09:00 08/14/24 08:45 Ferrous Sulfate [address] PO 325 mg DAILY MAMADOU Administration Glucagon 1 mg 08/13/24 07:46 Glucagon For Inj 1 Mg Vial IM PRN PRN Hypoglycemia Protocol Glucose 15 gm 08/13/24 07:46 Glucose Oral Gel 15 Gm Of Glucse In 37.5 Gm Tube PO PRN PRN Hypoglycemia Protocol Dextrose 1,000 mls @ 100 mls/hr 08/13/24 07:46 Dextrose 5% 1,000 Ml
[2024-08-14 16:11] LABS: Glucose Point of Care 236 mg/dl (65-105)
[2024-08-14] MEDS: PROPRANOLOL HCL 10 MG TABLET PO (16:25)
[2024-08-14 20:17] LABS: Glucose Point of Care 160 mg/dl (65-105)
[2024-08-15] VITALS (10 sets, daily range): BP systolic 93–117; BP diastolic 40–58; PULSE 62–91; RESP 12–23; TEMP 36.1–36.4; O2SAT 94–100
[2024-08-15 06:26] LABS: INR 1.4; Prothrombin Time 17.7 Seconds (11.1-14.7)
[2024-08-15 06:27] LABS: Partial Thromboplastin Time 33.5 Seconds (22.3-36.8)
[2024-08-15 06:49] LABS: Basophils Absolute Auto 0.1 K/mm3 (0.0-0.1); Basophils Percent Auto 1.3 % (0.2-1.2); Eosinophils Absolute Auto 0.1 K/mm3 (0-0.3); Eosinophils Percent Auto 2.7 % (0-4.4); Hematocrit 27.8 % (37.0-47.0); Hemoglobin 8.3 g/dL (12.0-15.0); Immature Granulocyte Absolute 0.02 K/mm3 (0.00-0.031); Immature Granulocyte Percent A 0.4 % (0-0.5); Immature Platelet Fraction Pct 9.4 % (0.9-11.2); Lymphocytes Absolute Auto 0.89 K/mm3 (0.9-3.2); Lymphocytes Percent Auto 19.8 % (18.3-44.2); Mean Corpuscular HGB Conc 29.9 g/dl (32-36); Mean Corpuscular Hemoglobin 23.3 pg (26-34); Mean Corpuscular Volume 78.1 fl (80-100); Monocytes Absolute Auto 0.5 K/mm3 (0.1-0.6); Neutrophils Percent Auto 65.8 % (45.5-73.1); Platelet Count Result 105 k/mm3 (150-375); Red Blood Count 3.56 M/mm3 (4.2-5.4); Red Cell Distribution Width 21.1 % (11.5-14.5); White Blood Count 4.5 K/mm3 (4.5-10.0)
[2024-08-15 07:12] LABS: Alanine Aminotransferase 21 U/L (6-35); Albumin Level 2.9 g/dL (3.5-5.1); Alkaline Phosphatase 120 U/L (38-126); Anion Gap 5 mmol/L (4-12); Aspartate Amino Transferase 44 U/L (14-36); Bilirubin,Total 1.4 mg/dL (0.2-1.3); Blood Urea Nitrogen 7 mg/dL (7-17); Carbon Dioxide 27 mmol/L (22-30); Chloride 102 mmol/L (98-107); Estimated Glomerular Filt Rate > 60; Glucose 122 mg/dL (65-110); Potassium 3.5 mmol/L (3.4-5.0); Sodium 134 mmol/L (137-145)
[2024-08-15 07:26] LABS: Platelet Estimate Decreased (Adequate)
[2024-08-15 07:27] LABS: Anisocytosis 2+; Hypochromasia 2+; Schistocytes None Seen
[2024-08-15 07:49] LABS: Glucose Point of Care 135 mg/dl (65-105)
--- NOTE | 2024-08-15 11:47 | P.PNIM_ITS ---
Progress Note: A&P Assessment and Plan (1) Microcytic hypochromic anemia: Code(s): D50.9 - Iron deficiency anemia, unspecified Status: Acute Assessment and Plan: Patient reports to the ED with complaints of dizziness, fatigue, pallor, * Hemoglobin 6.6 g/dl on admission. Hemoglobin in 12/2023 was 13.7 g/dl * s/p 1 unit pRBC, awaiting CBC repeat * Iron 15, TIBC 450, 4%, Transferrin 322, Ferritin 7.80. Vitamin B12 and folate are normal * IV Venofer 300 mg x 2 doses ordered * LDH, haptoglobin, and Reticulocyte pending * NPO at midnight for EGD and US * GI consulted, recs appreciated 08/15/24: * After transfusion, pt's Hgb stable at 8.3. * Reticulocyte count normal at 0.05. * Haptoglobin pending. * US performed yesterday demonstrating a cirrhotic liver, and mild amount of ascites. * EGD today to assess for any bleeding varices. (2) Hypertension: Code(s): I10 - Essential (primary) hypertension Status: Chronic Assessment and Plan: Blood pressures on arrival were low (93/57, HR 84). Typically takes Chlorthalidone 50 mg daily, spironolactone 25 mg daily, and propranolol 10 mg BID * hold home anti-hypertensives for now * monitor BP 08/15/24: * BP stable running [id number]. * Continue to monitor. (3) Diabetes mellitus: Code(s): E11.9 - Type 2 diabetes mellitus without complications Status: Acute Assessment and Plan: Takes Metformin 500 PO BID at home. * AC/HS accu checks * SSI low dose, Hypoglycemia protocol * NPO at midnight for EGD and US 08/15/24: * Continue current regimen. * Currently NPO. Plan Possible discharge after EGD today, depending on recs of GI. Time Spent With Patient Time with patient: 15 - 25 minutes Subjective Date/time seen: 08/15/24 0830 Interval history: This pt was examined today with the aid of an fuel cell assembler. She was admitted for blood loss anemia in the setting of having esophageal Varices and Cirrhosis of the liver. She has had previous banding of her varices. This admission she has required blood transfusion for Hgb <7.0. She has been evaluated by GI and will have an EGD today at 1500. She had US of abdomen yesterday that showed a cirrhotic liver and small volume of ascites. She denies any Hematemesis, melena or hematochezia. She has been NPO since [place]. She has no new complaints, symptoms or concerns to report today. Review of Systems Review of Systems: All systems reviewed & are unremarkable except as noted in HPI and below Exam Narrative: General: appears comfortable, in no acute distress Respiratory: breathing is unlabored with even chest rise/fall, lungs are clear without wheezing, rhonchi, and crackles Cardiovascular: Rate and rhythm regular, normal s1s2, no murmur Abdomen: Soft, round, non-tender, active bowel sounds Extremities: No cyanosis, edema, clubbing. Pulses 2/2 Neuro: A&O x 4 Skin: Warm, dry, intact Objective Data Vital Signs Vital Signs: Vital Signs - 24 hr 08/14/24 12:00 08/14/24 14:00 08/14/24 16:00 Temperature 97.1 F L Pulse Rate 74 89 85 Respiratory Rate 18 Blood Pressure 130/59 L Pulse Oximetry 97 Oxygen Delivery 08/14/24 20:00 08/14/24 21:27 08/14/24 21:30 Temperature 98.0 F Pulse Rate 74 74
--- NOTE | 2024-08-15 11:47 | PM.IMPN ---
Progress Note: A&P Assessment and Plan (1) Microcytic hypochromic anemia: Code(s): D50.9 - Iron deficiency anemia, unspecified Status: Acute Assessment and Plan: Patient reports to the ED with complaints of dizziness, fatigue, pallor, Hemoglobin 6.6 g/dl on admission. Hemoglobin in 12/2023 was 13.7 g/dl s/p 1 unit pRBC, awaiting CBC repeat Iron 15, TIBC 450, 4%, Transferrin 322, Ferritin 7.80. Vitamin B12 and folate are normal IV Venofer 300 mg x 2 doses ordered LDH, haptoglobin, and Reticulocyte pending NPO at midnight for EGD and US GI consulted, recs appreciated 08/15/24: After transfusion, pt's Hgb stable at 8.3. Reticulocyte count normal at 0.05. Haptoglobin pending. US performed yesterday demonstrating a cirrhotic liver, and mild amount of ascites. EGD today to assess for any bleeding varices. (2) Hypertension: Code(s): I10 - Essential (primary) hypertension Status: Chronic Assessment and Plan: Blood pressures on arrival were low (93/57, HR 84). Typically takes Chlorthalidone 50 mg daily, spironolactone 25 mg daily, and propranolol 10 mg BID hold home anti-hypertensives for now monitor BP 08/15/24: BP stable running [id number]. Continue to monitor. (3) Diabetes mellitus: Code(s): E11.9 - Type 2 diabetes mellitus without complications Status: Acute Assessment and Plan: Takes Metformin 500 PO BID at home. AC/HS accu checks SSI low dose, Hypoglycemia protocol NPO at midnight for EGD and US 08/15/24: Continue current regimen. Currently NPO. Plan Possible discharge after EGD today, depending on recs of GI. Time Spent With Patient Time with patient: 15 - 25 minutes Subjective Date/time seen: 08/15/24 0830 Interval history: This pt was examined today with the aid of an floor covering printer assistant. She was admitted for blood loss anemia in the setting of having esophageal Varices and Cirrhosis of the liver. She has had previous banding of her varices. This admission she has required blood transfusion for Hgb <7.0. She has been evaluated by GI and will have an EGD today at 1500. She had US of abdomen yesterday that showed a cirrhotic liver and small volume of ascites. She denies any Hematemesis, melena or hematochezia. She has been NPO since [place]. She has no new complaints, symptoms or concerns to report today. Review of Systems Review of Systems: All systems reviewed & are unremarkable except as noted in HPI and below Exam Narrative: General: appears comfortable, in no acute distress Respiratory: breathing is unlabored with even chest rise/fall, lungs are clear without wheezing, rhonchi, and crackles Cardiovascular: Rate and rhythm regular, normal s1s2, no murmur Abdomen: Soft, round, non-tender, active bowel sounds Extremities: No cyanosis, edema, clubbing. Pulses 2/2 Neuro: A&O x 4 Skin: Warm, dry, intact Objective Data Vital Signs Vital Signs: Vital Signs - 24 hr 08/14/24 12:00 08/14/24 14:00 08/14/24 16:00 Temperature 97.1 F L Pulse Rate 74 89 85 Respiratory Rate 18 Blood Pressure 130/59 L Pulse Oximetry 97 Oxygen Delivery 08/14/24 20:00 08/14/24 21:27 08/14/24 21:30 Temperature 98.0 F Pulse Rate 74 74 Respiratory Rate 14 Blood Pressure 114/48 L Pulse Oximetry 99 99 Oxygen Delivery Room Air 08/15/24 00:00 08/15/24 05:33 08/15/24 04:00 Temperature 96.9 F L Pulse Rate 76 75 72 Respiratory Rate 12 Blood Pressure 110/40 L Pulse Oximetry 94 Oxygen Delivery 08/15/24 08:00 08/15/24 08:00 Temperature Pulse Rate 91 Respiratory Rate Blood Pressure Pulse Oximetry Oxygen Delivery Room Air Intake/Output Intake/Output: Intake & Output 08/12/24 08/13/24 08/14/24 08/15/24 23:59 23:59 23:59 23:59 Intake Total 350 590 915 100 Balance 350 590 915 100 Meds/Results Medications: Active Medications Generic Na
[2024-08-15 11:48] LABS: Glucose Point of Care 134 mg/dl (65-105)
[2024-08-15] MEDS: PANTOPRAZOLE SODIUM IV 40 MG VIAL IV PUSH (11:58)
[2024-08-15 13:42] LABS: Glucose Point of Care 117 mg/dl (65-105)
[2024-08-15] MEDS: LACTATED RINGERS 1,000 ML 150 ML IV CONT (13:43)
--- NOTE | 2024-08-15 13:52 | SUR.PREOP ---
[employer] Saurabh [id number] used for translation in pre op.
[2024-08-15 14:31] LABS: Glucose Point of Care 113 mg/dl (65-105)
--- NOTE | 2024-08-15 14:50 | PM.DS ---
DS: Admitting Diagnosis Discharge Date 08/15/24 Admitting Diagnosis Anemia HTN LINA DM DS: Discharge Diagnosis Discharge Diagnosis (1) Microcytic hypochromic anemia: Code(s): D50.9 - Iron deficiency anemia, unspecified Status: Acute Assessment and Plan: Patient reports to the ED with complaints of dizziness, fatigue, pallor, Hemoglobin 6.6 g/dl on admission. Hemoglobin in 12/2023 was 13.7 g/dl s/p 1 unit pRBC, awaiting CBC repeat Iron 15, TIBC 450, 4%, Transferrin 322, Ferritin 7.80. Vitamin B12 and folate are normal IV Venofer 300 mg x 2 doses ordered LDH, haptoglobin, and Reticulocyte pending NPO at midnight for EGD and US GI consulted, recs appreciated 08/15/24: After transfusion, pt's Hgb stable at 8.3. Reticulocyte count normal at 0.05. Haptoglobin pending. US performed yesterday demonstrating a cirrhotic liver, and mild amount of ascites. EGD today to assess for any bleeding varices. EGD today without any bleeding. Hgb is stable. GI OK with discharge from their standpoint. (2) Hypertension: Code(s): I10 - Essential (primary) hypertension Status: Chronic Assessment and Plan: Blood pressures on arrival were low (93/57, HR 84). Typically takes Chlorthalidone 50 mg daily, spironolactone 25 mg daily, and propranolol 10 mg BID hold home anti-hypertensives for now monitor BP 08/15/24: BP stable running [id number]. Continue to monitor. Stable. Will continue to hold Chlorthalidone until follow up with PCP. (3) Diabetes mellitus: Code(s): E11.9 - Type 2 diabetes mellitus without complications Status: Acute Assessment and Plan: Takes Metformin 500 PO BID at home. AC/HS accu checks SSI low dose, Hypoglycemia protocol NPO at midnight for EGD and US 08/15/24: Continue current regimen. Currently NPO. Continue home regimen on discharge Plan Possible discharge after EGD today, depending on recs of GI. DS: Summary Hospital Course Reason for hospitalization: Acute on chronic anemia Hospital Course: This pt was examined today with the aid of an veneer sample maker. She was admitted for blood loss anemia in the setting of having esophageal Varices and Cirrhosis of the liver. She has had previous banding of her varices. This admission she has required blood transfusion for Hgb <7.0, but has remained stable. She has been evaluated by GI and had an EGD today that demonstrated Grade II varices in the distal esophagus. There was no active bleeding. A band ligation device was used to place two bands. There was moderate gastritis with moderate erythematous and portal hypertensive changes but no mucosal bleeding. No ulcerations or masses were identified. She had US of abdomen yesterday that showed a cirrhotic liver and small volume of ascites. She denies any Hematemesis, melena or hematochezia. She has been NPO since DC. She has no new complaints, symptoms or concerns to report today. She has been cleared by GI to discharge to home today as she tolerates oral intake. Status at Discharge Cognitive/behavioral status at discharge: At baseline Functional status at discharge: independent ambulation Overall status at discharge: patient is back to baseline Time Spent with Patient Time attestation: Total time spent providing and/or coordinating discharge services: Time spent: Greater than 30 minutes Exam Narrative: General: appears comfortable, in no acute distress Respiratory: breathing is unlabored with even chest rise/fall, lungs are clear without wheezing, rhonchi, and crackles Cardiovascular: Rate and rhythm regular, normal s1s2, no murmur Abdomen: Soft, round, non-tender, active bowel sounds Extremities: No cyanosis, edema, clubbing. Pulses 2/2 Neuro: A&O x 4 Skin: Warm, dry, intact DS: Data Data Completed and Pending Completed studies during hospitalization: ITS Impressions Abdomen Ultrasou
[2024-08-15] MEDS: FERROUS SULFATE 325 MG TABLET DR PO (15:30)
[2024-08-15] MEDS: SPIRONOLACTONE 25 MG TABLET PO (15:30)
--- NOTE | 2024-08-16 09:36 | WPDANESPN ---
Anes - Prog Note Post-Op Date/Time: 08/16/24 09:36 Cardiovascular status: normal (anemia) Respiratory status: normal Airway patency: baseline Mental status: baseline Post-Op hydration status: normal Vital Signs: Last Vital Signs Temp 97.5 F L 08/15/24 13:51 Pulse 62 08/15/24 14:36 Resp 23 H 08/15/24 14:36 BP 114/58 L 08/15/24 14:36 Pulse Ox 100 08/15/24 14:36 O2 Del Method Room Air 08/15/24 14:36 Pain Score (VAS): 0/10 Laboratory Tests 08/15/24 06:10 08/15/24 06:10 08/15/24 08/15/24 08/15/24 11:25 13:39 14:27 POC Capillary Glucose 134 H 117 H 113 H Post-procedural complaints: none Patient Feedback: Patient satisfied with anesthetic care.
[2024-08-18 14:28] LABS: Haptoglobin 60 mg/dL (43-212)
== END 2024-08-15 16:15 | disposition home or self-care (01) | DRG 663 ==
LOC: ANHED 21:23 → ANH3MEDSUR 21:29
PROVIDERS: Internal Medicine Gastroenterology; Nurse Practitioner Acute Care; Admitting Provider Internal Medicine; Emergency Provider Emergency Medicine; PCP Family Medicine; Visit Provider Nurse Practitioner Adult Health
PROC: 0DJ08ZZ Inspection of Upper Intestinal Tract, Via Natural or Artificial Opening Endoscopic (ICD-10-PCS; CPT 43235; principal; 2024-08-15 15:00)
DX: D50.9 Iron deficiency anemia, unspecified (principal); I85.10 Secondary esophageal varices without bleeding; K76.6 Portal hypertension; R18.8 Other ascites; D69.6 Thrombocytopenia, unspecified; K74.60 Unspecified cirrhosis of liver; K29.70 Gastritis, unspecified, without bleeding; I10 Essential (primary) hypertension; E11.9 Type 2 diabetes mellitus without complications; Z86.010 Personal history of colon polyps
CPT/HCPCS: 36415; 36430; 76700; 80053; 82607; 82728; 82746; 82948; 83010; 83540; 83550; 83615; 84466; 85025; 85027; 85046; 85055; 85610; 85730; 86850; 86900; 86901; 86923; 99285; A9270; J1756; J1815; J2470; J2704; J7050; J7120; P9016